=== PATIENT | female | born 1995 | race Caucasian/White ===

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

== ENCOUNTER 2017-01-16 17:03 | Inpatient (IN) | payer BC, MEDICAID ==
[~2017-01-16] VITALS: Ht 154.9 cm; Wt 79.4 kg
[2017-01-16] VITALS (16 sets, daily range): BP systolic 130–169; BP diastolic 76–103
[~2017-01-16 17:03] MED LIST changes: +IRON1TAB95 PO
[2017-01-16 18:22] LABS: BILIRUBIN,URINE NEGATIVE (NEGATIVE); KETONES,URINE 2+ (NEGATIVE); LEUKOCYTE ESTERASE ,URINE 1+ (NEGATIVE); NITRITE,URINE NEGATIVE (NEGATIVE); PH,URINE 6 (5-9); PROTEIN,URINE 1+ (NEGATIVE); UROBILINOGEN,URINE NORMAL (NORMAL)
[2017-01-16 18:24] LABS: BASOPHILS % (AUTO) 0 % (0-10); EOSINOPHILS % (AUTO) 0 % (0-10); LYMPHOCYTES # (AUTO) 2.2 X 10^3 (1.0-4.0); LYMPHOCYTES % (AUTO) 19 % (12-44); MEAN CORPUSCULAR HEMOGLOBIN 30 PG (25-34); MEAN CORPUSCULAR HGB CONC 35 G/DL (32-36); MEAN CORPUSCULAR VOLUME 87 FL (80-99); MONOCYTES % (AUTO) 9 % (0-12); NEUTROPHILS # (AUTO) 8.4 X 10^3 (1.8-7.8); NEUTROPHILS % (AUTO) 72 % (42-75); PLATELET COUNT 235 10^3/uL (130-400); RED BLOOD COUNT 4.22 10^6/uL (4.35-5.85); RED CELL DISTRIBUTION WIDTH 13.5 % (10.0-14.5); WHITE BLOOD COUNT 11.7 10^3/uL (4.3-11.0)
[2017-01-16 18:29] LABS: WBC,URINE 0-2 /HPF
[2017-01-16 18:36] LABS: PROTEIN/CREATININE RATIO 0.2
[2017-01-16 18:39] LABS: ALANINE AMINOTRANSFERASE 18 U/L (0-55); ALBUMIN 3.9 GM/DL (3.2-4.5); ANION GAP 12 MMOL/L (5-14); ASPARTATE AMINO TRANSFERASE 29 U/L (5-34); BILIRUBIN,TOTAL 0.3 MG/DL (0.1-1.0); BLOOD UREA NITROGEN 10 MG/DL (7-18); BUN/CREATININE RATIO 15; CALCIUM 9.8 MG/DL (8.5-10.1); CARBON DIOXIDE 21 MMOL/L (21-32); CHLORIDE 106 MMOL/L (98-107); CREATININE SERUM 0.67 MG/DL (0.60-1.30); GFR ESTIMATED > 60; GLUCOSE 77 MG/DL (70-105); POTASSIUM 3.9 MMOL/L (3.6-5.0); SODIUM 139 MMOL/L (135-145); URIC ACID 7.4 MG/DL (2.6-7.2)
[2017-01-16] MEDS ORDERED: LACTATED RINGERS 1,000 ML IV ONE (19:21)
[2017-01-16] MEDS ORDERED: MINERAL OIL CONCENTRATE 99.9% 15 ML UDC TOP PRN (19:45)
[2017-01-16] MEDS ORDERED: MISOPROSTOL 100 MCG (CYTOTEC) TAB PO ONE (19:45)
[2017-01-16] MEDS: LACTATED RINGERS 1,000 ML IV SCH (19:45)
[2017-01-16] MEDS: CALCIUM CARBONATE 500 MG (TUMS) TAB.CHEW PO PRN ×2 (20:13→22:02)
--- OUTSIDE RECORDS SUMMARY | 2017-01-16 20:22 | XMS REPORT | Continuity of Care Document ---
Author Author [employer] Organization [facility] Address Unknown Phone Unavailable Care Team Providers Care Snag Grinder Name Role Phone [employer] Unavailable Unavailable Problems Medications Allergies, Adverse Reactions, Alerts Immunizations Results Vital Signs Encounters Procedures Plan of Care Social History Assessment and Plan Family History Value Date Source Advance Directives Order Name Results Value Date Source
[2017-01-16] MEDS: D5 LR IV SOLUTION 1,000 ML IV SCH (20:51)
[2017-01-16] MEDS: CATHETER FLUSH 10 ML SYR IV SCH (22:06)
[2017-01-17] VITALS (22 sets, daily range): BP systolic 97–160; BP diastolic 50–97
[2017-01-17] MEDS: MISOPROSTOL 100 MCG (CYTOTEC) TAB PO SCH ×2 (00:49→04:50)
[2017-01-17] MEDS: D5 LR IV SOLUTION 1,000 ML IV SCH (04:50)
[2017-01-17] MEDS ORDERED: HYDROmorphone (DILAUDID) 2 MG/ML VIAL IVP ONE (06:00)
[2017-01-17] MEDS ORDERED: INFLUENZA TRIvalent 2017-2018 0.5 ML/45 MCG SYR IM ONE (07:15)
[2017-01-17] MEDS ORDERED: OXYTOCIN/NORMAL SALINE 500 ML IV SCH ×2 (09:19→13:00)
--- NOTE | 2017-01-17 09:26 | History & Physical-OB/GYN ---
History of Present Illness History of Present Illness Reason for visit/HPI Patient presents with family on 01/16/17 with complaint of elevated BP. She was admitted by Dr. mckinney due to elevated blood pressures last night. He managed her care until this morning. she had not required treatment for elevated blood pressures (160/100) on admision, and has received 3 doses of oral cytotec. complicated by chronic hypertension but no treatment. Blood pressures have been controlled and increasing slightly each week. No proteinuria. Previous history from ob intake (started care with Dr. Mofftet) - +THC (tested negative throughout ), Subclinical hypothyroidism (TSH 2.6), Asymptomatic bactiruia/E Coli. (treated in ), cHTN (never dx but elevated diastolic x 2 at our report, high at home as well) Patient and father of the baby deny chromosomal anomalies including Trisomy 13/ 18 , cystic fibrosis, Shankar-Sachs disease, or other genetic defects. Date of Admission Jan 16, 2017 at 19:15 Date Seen by Provider: Jan 17, 2017 Time Seen by Provider: 09:00 I consulted on this patient on 01/17/17 09:19 Attending Physician Nicola Mckinney DO Admitting Physician Carolyn Song DO Consult Allergies and Home Medications Allergies Coded Allergies: No Known Drug Allergies (Unverified , 04/29/11) Home Medications Aspirin 81 Mg Tab.chew, 81 MG PO DAILY, (Reported) Iron,Carbonyl/Vit C/Vit B12/FA 1 Each Tablet, 1 EACH PO DAILY, (Reported) Levothyroxine Sodium 25 Mcg Tablet, 25 MCG PO DAILY, (Reported) Vit W-Ca,Fe,FA(<1 mg) 1 Each Tablet, 1 TAB PO DAILY, (Reported) Past [id number]-Uagbdt Hx Patient Social History Marrital Status: single Number of Children: 0 Employed/Student: student, full-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 Alcohol Use: Denies Use Recreational Drug Use: No Smoking Status: Never a Smoker Physical Abuse Screen: No Sexual Abuse: No Recent Foreign Travel: No Contact w/other who traveled: No Recent Hopitalizations: No Recent Infectious Disease Expo: No Immunizations Up To Date Tetanus Booster (TDap): Unknown Seasonal Allergies Seasonal Allergies: No Surgeries Yes Bladder Surgery Respiratory No Cardiovascular No Neurological No Reproductive System Expected Date of Delivery: Jan 22, 2017 Last Menstrual Period: Feb 28, 2016 Hx : 1 Hx Reproductive Disorders: No Female Reproductive Disorders: Denies Genitourinary No Gastrointestinal No Musculoskeletal No Endocrine History of Endocrine Disorders: No HEENT History of HEENT Disorders: No Cancer No Psychosocial History of Psychiatric Problem: Yes (MOOD DISORDER--WAS ON [employer]FT--DC'D IT 1 MONTH AGO) Behavioral Health Disorders: Depression Integumentary History of Skin or Integumenta: No Blood Transfusions History of Blood Disorders: No Adverse Reaction to a Blood Tr: No Family Medical History Family Hx: Hypertension 19 FATHER Constitutional: no symptoms reported Physical Exam Physical Exam Vital Signs Vital Signs Date Time Temp Pulse Resp B/P (MAP) Pulse Ox O2 Delivery O2 Flow Rate FiO2 01/17/17 04:52 80 18 136/87 Room Air 01/17/17 03:00 97.4 01/17/17 02:33 78 18 122/75 Room Air 01/17/17 00:42 73 18 113/57 Room Air 01/16/17 23:42 82 18 142/78 Room Air 01/16/17 22:42 78 18 132/80 Room Air 01/16/17 21:42 79 18 133/85 Room Air 01/16/17 20:41 98.5 90 18 139/87 Room Air 01/16/17 19:40 91 18 135/82 Room Air 01/16/17 19:25 98 18 153/102 Room Air 01/16/17 19:09 91 18 134/82 Room Air 01/16/17 18:56 85 20 140/92 01/16/17 18:40 83 20 135/81 01/16/17 18:35 88 20 139/92 01/16/17 18:25 86 20 138/103 01/16/17 18:10 90 20 137/90 01/16/17 17:50 88 20 139/89 01/16/17 17:46 130/81 01/16/17 17:41 88 20 140/76 01/16/17 17:35 77 20 169/95 Capillary Refill : Labs Laboratory Tests 01/16/17 18:05: White Blood Count 11.7H, Red Blood Count 4.22L, Hemoglobin 12.8, Hematocrit 37, Mean Corpuscular Volume 87, Mean Corpuscular Hemoglobin 30, Mean Corpuscular Hemoglobin Concent 35, Red Cell Distribution Width 13.5, Platelet Count 235, Mean Platelet Volume 12.0H, Neutrophils (%) (Auto) 72, Lymphocytes (%) (Auto) 19 , Monocytes (%) (Auto) 9, Eosinophils (%) (Auto) 0, Basophils (%) (Auto) 0, Neutrophils # (Auto) 8.4H, Lymphocytes # (Auto) 2.2, Monocytes # (Auto) 1.0, Eosinophils # (Auto) 0.0, Basophils # (Auto) 0.0, Urine Color YELLOW, Urine Clarity CLEAR, Urine pH 6, Urine Specific [place] 1.015L, Urine Protein 1+H, Urine Glucose (UA) NEGATIVE, Urine Ketones 2+H, Urine Nitrite NEGATIVE, Urine Bilirubin NEGATIVE, Urine Urobilinogen NORMAL, Urine Leukocyte Esterase 1+H, Urine RBC (Auto) NEGATIVE, Urine RBC NONE, Urine WBC 0-2, Urine Squamous Epithelial Cells 10-25H, Urine Crystals NONE, Urine Bacteria FEWH, Urine Casts NONE, Urine Mucus SMALLH, Urine Culture Indicated NO, Urine Creatinine 95, Urine Protein/Creatinine Ratio 0.20, Sodium Level 139, Potassium Level 3.9, Chloride Level 106, Carbon Dioxide Level 21, Anion Gap 12, Blood Urea Nitrogen 10, Creatinine 0.67, Estimat Glomerular Filtration Rate > 60, BUN/Creatinine Ratio 15, Glucose Level 77, Uric Acid 7.4H, Calcium Level 9.8, Total Bilirubin 0.3, Aspartate Amino Transf (AST/SGOT) 29, Alanine Aminotransferase (ALT/SGPT) 18, Alkaline Phosphatase 176H, Total Protein 8.0, Albumin 3.9 General Appearance: No Apparent Distress Respiratory: Lungs Clear, Normal Breath Sounds Cardiovascular: Regular Rate, Rhythm, Other (1+ edema) Abdominal: normal bowel sounds Gynecology/General: Other (see RN note for admission exam. On my exam see below) Cervix: Other Cervix OS: other (2 cm/80% effaced/0 station) Uterus: WNL, Enlarged, Other (FH 39, cephalic) Pelvic Exam: normal external exam Assessment/Plan Assessment and Plan 1. Adolescent , 39 2/7 weeks 2. admitted for elevated blood pressures/gestational hypertension Plan continue misoprostol ripening. AROM when able with Pitocin augmentation. Anticipate . Peds - {ence Problems: Clinical Quality Measures DVT/VTE Risk/Contraindication: Risk Factor Score Per Nursin RFS Level Per Nursing on Admit: 1=Low/No VTE PPX CAROLYN SONG DO Jan 17, 2017 09:26
[2017-01-17] MEDS ORDERED: SUFENTA 0.6MCG/ML BUPIVA 0.125 100 ML ONE (10:07)
[2017-01-17] MEDS ORDERED: BUPIVACAINE 0.25% 30 ML (SENSORCAINE) VIAL ONE (10:27)
[2017-01-17] MEDS ORDERED: fentaNYL INJECTION 100 MCG/2 ML AMP ONE (10:28)
[2017-01-17] MEDS ORDERED: METOCLOPRAMIDE INJ 10 MG/2 ML (REGLAN) ONE (12:01)
[2017-01-17] MEDS ORDERED: LIDOCAINE PF 2% 5 ML (XYLOCAINE) VIAL ONE (12:01)
[2017-01-17] MEDS ORDERED: CITRIC ACID/SOB CIT (BICITRA) 30 ML UDC ONE (12:01)
[2017-01-17] MEDS ORDERED: ceFAZolin 2 GM/50 ML NS 50 ML ONE (12:01)
[2017-01-17] MEDS ORDERED: FAMOTIDINE 20MG/2ML IV (PEPCID) ONE (12:01)
[2017-01-17] MEDS ORDERED: LACTATED RINGERS 1,000 ML IV PRN (12:07)
[2017-01-17] MEDS ORDERED: CITRIC ACID/SOB CIT (BICITRA) 30 ML UDC PO ONE (12:15)
[2017-01-17] MEDS ORDERED: FAMOTIDINE 20MG/2ML IV (PEPCID) IV ONE (12:15)
[2017-01-17] MEDS ORDERED: CATHETER FLUSH 10 ML SYR IV PRN ×2 (12:15→13:45)
[2017-01-17] MEDS ORDERED: ceFAZolin 2 GM/50 ML NS 50 ML IV ONE (12:15)
[2017-01-17] MEDS ORDERED: AZITHROMYCIN INJECTION 500 MG in NS (IVPB) 250 ML IV ONE (12:15)
[2017-01-17] MEDS ORDERED: METOCLOPRAMIDE INJ 10 MG/2 ML (REGLAN) IV ONE (12:15)
[2017-01-17] MEDS: LACTATED RINGERS 1,000 ML IV SCH (12:20)
[2017-01-17] MEDS ORDERED: 0.9% SODIUM CHLORIDE PF INJ 20 ML VIAL ONE (12:27)
[2017-01-17] MEDS ORDERED: BUPIVACAINE 0.5% 30 ML (SENSORCAINE) VIAL ONE (12:27)
[2017-01-17] MEDS ORDERED: HYDROmorphone (DILAUDID) 2 MG/ML VIAL IVP PRN ×2 (13:00→13:15)
[2017-01-17] MEDS ORDERED: TETANUS,DIPTH,PERTUSS P/F (BOOSTRIX) 0.5 ML VIAL IM SCH (13:00)
[2017-01-17] MEDS ORDERED: D5 LR IV SOLUTION 1,000 ML IV SCH (13:00)
[2017-01-17] MEDS ORDERED: MEASLES,MUMPS,RUBELLA 1 EA INJ SC SCH (13:00)
--- NOTE | 2017-01-17 13:06 | Cesarean Section Operative ---
Procedure Procedure Note Pre-operative Diagnosis: Ernestina Gibson is a 21 /Para 1 /0 ,Gestational Age gestational hypertension, vaginal bleeding (third trimester) , non reassuring hearttones Post-operative Diagnosis: same, placental abruption Procedure: Primary low transverse section Physician: CAROLYN SONG Environmental Consultant: Nicola Mckinney DO Estimated blood loss: 600 mL Disposition: stable Findings: Viable female infant, Apgars 1/9, weight 7#2oz, obvious placental abruption. Large amount of clots in the uterus, 3vc, normal appearing uterus, tubes, and ovaries. Body cord delivered through. Indications:Ernestina Gibson is a 21 /Para 1 /0 ,Gestational Age gestational hypertension, vaginal bleeding (third trimester) , non reassuring hearttones Procedure Details: The patient was seen in pre-op and the procedure was discussed with the patient in full, including the risks, benefits, and alternatives. All questions were answered. The patient was taken to the operating room and a time out was performed, verifying patient and procedure. After spinal anesthesia was placed by our anesthesia colleagues, the patient was placed in the dorsal supine with leftward tilt for uterine displacement.~ Her abdomen was then prepped and draped in the typical sterile fashion. A Pfannenstiel skin incision was made using a scalpel and carried down through the underlying fascia. The fascia was incised in the midline and tented up using Gerardo clamps. On both the inferior and superior fascia side the rectus muscle was dissected off bluntly and sharply using Haji scissors. The peritoneum was identified and entered bluntly in the midline. This was then stretched laterally using manual strength. After entering the abdominal cavity and confirming lack of intraperitoneal adhesions, a large Merrick retractor was placed and the lower uterine segment was visualized. A bladder flap was created with the use of Metzenbaum scissors.~ A scalpel was utilized to make a low transverse uterine incision. Amniotomy was performed with an Allis clamp with return of clear fluid. The infant's head was grasped and brought to the level of the incision. Fundal pressure was applied and infant was delivered without difficulty. Mouth and nares were suctioned with bulb suction. After the umbilical cord was clamped and cut, the infant was handed off to the pediatric staff. A sample of cord blood was then obtained. The placenta was delivered intact via uterine massage. The uterus was exteriorized and cleared of all clots and debris. The uterine incision was closed using 0 Vicryl in a running locked fashion. A second imbricated layer was placed using 0 Vicryl in a running fashion as well. The uterus was flexed forward and the posterior rectouterine space was inspected and cleared of all clots and debris. Again the hysterotomy site was examined and hemostasis was observed. The bilateral tubes and ovaries appeared normal. The uterus was placed back into the abdominal cavity and abdominal gutters were cleared of all clots and debris. A final check of the uterine incision showed it to be hemostatic. The peritoneum was closed using 3-0 Vicryl in a running fashion. The fascia was closed with 0 Vicryl in a running fashion. The subcutaneous space was hemostatic, and irrigated. The subcutaneous space was closed with 3-0 Vicryl in several single interrupted stitches. The skin was then closed using 4- 0 Monocryl in a running subcuticular fashion. The skin edges were reapproximated together and were hemostatic. A pressure dressing was applied. All sponge, lap and needle counts were correct at the end of the procedure per nursing. Vitals - Labs Vital Signs - I&O Vital Signs Date Time Temp Pulse Resp B/P (MAP) Pulse Ox O2 Delivery O2 Flow Rate FiO2 01/17/17 11:35 93 16 127/66 100 Room Air 01/17/17 11:30 97.1 82 16 128/63 100 Room Air 01/17/17 11:25 85 16 127/66 100 Room Air 01/17/17 11:20 89 16 143/72 100 Room Air 01/17/17 11:15 92 16 102/63 100 Room Air 01/17/17 11:10 93 18 97/56 99 Room Air 01/17/17 11:05 75 20 97/54 98 Room Air 01/17/17 11:00 83 18 103/50 98 Room Air 01/17/17 10:55 93 18 128/70 98 Room Air 01/17/17 10:40 88 20 139/85 Room Air 01/17/17 10:25 89 20 140/89 Room Air 01/17/17 10:10 82 20 158/97 Room Air 01/17/17 09:55 97.1 80 20 160/97 Room Air 01/17/17 04:52 80 18 136/87 Room Air 01/17/17 03:00 97.4 01/17/17 02:33 78 18 122/75 Room Air 01/17/17 00:42 73 18 113/57 Room Air 01/16/17 23:42 82 18 142/78 Room Air 01/16/17 22:42 78 18 132/80 Room Air 01/16/17 21:42 79 18 133/85 Room Air 01/16/17 20:41 98.5 90 18 139/87 Room Air 01/16/17 19:40 91 18 135/82 Room Air 01/16/17 19:25 98 18 153/102 Room Air 01/16/17 19:09 91 18 134/82 Room Air 01/16/17 18:56 85 20 140/92 01/16/17 18:40 83 20 135/81 01/16/17 18:35 88 20 139/92 01/16/17 18:25 86 20 138/103 01/16/17 18:10 90 20 137/90 01/16/17 17:50 88 20 139/89 01/16/17 17:46 130/81 01/16/17 17:41 88 20 140/76 01/16/17 17:35 77 20 169/95 I & O 01/18/17 07:00 Intake Total 50 ml Output Total 100 ml Balance -50 ml Labs Laboratory Tests 01/16/17 18:05: White Blood Count 11.7H, Red Blood Count 4.22L, Hemoglobin 12.8, Hematocrit 37, Mean Corpuscular Volume 87, Mean Corpuscular Hemoglobin 30, Mean Corpuscular Hemoglobin Concent 35, Red Cell Distribution Width 13.5, Platelet Count 235, Mean Platelet Volume 12.0H, Neutrophils (%) (Auto) 72, Lymphocytes (%) (Auto) 19 , Monocytes (%) (Auto) 9, Eosinophils (%) (Auto) 0, Basophils (%) (Auto) 0, Neutrophils # (Auto) 8.4H, Lymphocytes # (Auto) 2.2, Monocytes # (Auto) 1.0, Eosinophils # (Auto) 0.0, Basophils # (Auto) 0.0, Urine Color YELLOW, Urine Clarity CLEAR, Urine pH 6, Urine Specific [place] 1.015L, Urine Protein 1+H, Urine Glucose (UA) NEGATIVE, Urine Ketones 2+H, Urine Nitrite NEGATIVE, Urine Bilirubin NEGATIVE, Urine Urobilinogen NORMAL, Urine Leukocyte Esterase 1+H, Urine RBC (Auto) NEGATIVE, Urine RBC NONE, Urine WBC 0-2, Urine Squamous Epithelial Cells 10-25H, Urine Crystals NONE, Urine Bacteria FEWH, Urine Casts NONE, Urine Mucus SMALLH, Urine Culture Indicated NO, Urine Creatinine 95, Urine Protein/Creatinine Ratio 0.20, Sodium Level 139, Potassium Level 3.9, Chloride Level 106, Carbon Dioxide Level 21, Anion Gap 12, Blood Urea Nitrogen 10, Creatinine 0.67, Estimat Glomerular Filtration Rate > 60, BUN/Creatinine Ratio 15, Glucose Level 77, Uric Acid 7.4H, Calcium Level 9.8, Total Bilirubin 0.3, Aspartate Amino Transf (AST/SGOT) 29, Alanine Aminotransferase (ALT/SGPT) 18, Alkaline Phosphatase 176H, Total Protein 8.0, Albumin 3.9 CAROLYN SONG DO Jan 17, 2017 13:06
[2017-01-17] MEDS ORDERED: LACTATED RINGERS 1,000 ML IV ONE (13:33)
[2017-01-17] MEDS ORDERED: diphenhydrAMINE 50 MG/ML INJ (BENADRYL) IV PRN (13:45)
[2017-01-17] MEDS ORDERED: ONDANSETRON 4 MG/2 ML (SDV) Z0FRAN IV PRN (13:45)
[2017-01-17] MEDS ORDERED: NALOXONE 0.4 MG/ML 1 ML (NARCAN) VIAL IV PRN (13:45)
[2017-01-17] MEDS ORDERED: EPIDURAL (SUFENTA 0.6MCG/ML BUPIVA 0.125%) 100 ML BAG EPI SCH (13:45)
[2017-01-17] MEDS: KETOROLAC 30 MG/ML VIAL IVP SCH ×2 (14:04→21:22)
[2017-01-17] MEDS: HYDROcodone/APAP 5 MG/325 MG (LORTAB) TAB PO PRN (15:03)
[2017-01-17] MEDS: DOCUSATE SODIUM 100 MG (COLACE) CAP PO SCH (21:22)
[2017-01-17] MEDS: CATHETER FLUSH 10 ML SYR IV SCH (22:00)
[2017-01-18] VITALS: BP 126/87
[2017-01-18] MEDS: HYDROcodone/APAP 5 MG/325 MG (LORTAB) TAB PO PRN ×2 (00:39→17:01)
[2017-01-18] MEDS: KETOROLAC 30 MG/ML VIAL IVP SCH ×2 (01:17→06:00)
[2017-01-18] MEDS: CATHETER FLUSH 10 ML SYR IV SCH ×4 (01:19→11:47)
[2017-01-18 04:00] VITALS: BP 118/77
[2017-01-18 06:26] LABS: BASOPHILS % (AUTO) 0 % (0-10); EOSINOPHILS % (AUTO) 0 % (0-10); LYMPHOCYTES # (AUTO) 3.1 X 10^3 (1.0-4.0); LYMPHOCYTES % (AUTO) 28 % (12-44); MEAN CORPUSCULAR HEMOGLOBIN 30 PG (25-34); MEAN CORPUSCULAR HGB CONC 34 G/DL (32-36); MEAN CORPUSCULAR VOLUME 90 FL (80-99); MEAN PLATELET VOLUME 11.9 FL (7.4-10.4); MONOCYTES # (AUTO) 1.3 X 10^3 (0.0-1.0); MONOCYTES % (AUTO) 11 % (0-12); NEUTROPHILS # (AUTO) 6.7 X 10^3 (1.8-7.8); NEUTROPHILS % (AUTO) 60 % (42-75); PLATELET COUNT 196 10^3/uL (130-400); RED BLOOD COUNT 2.71 10^6/uL (4.35-5.85); RED CELL DISTRIBUTION WIDTH 13.4 % (10.0-14.5); WHITE BLOOD COUNT 11.1 10^3/uL (4.3-11.0)
--- NOTE | 2017-01-18 07:50 | Postpartum Progress Note ---
Post Op Post-operative Day #1 s/p PLTCS Abruption Subjective: Patient is without complaints. Ambulating, voiding after montejo removed. Tolerating a regular diet without nausea or vomiting. Normal lochia. Pain is well controlled with oral pain medications. Passing flatus. [] feeding. [] Objective: Laboratory Tests Test 01/18/17 05:51 Range/Units White Blood Count 11.1 H 4.3-11.0 10^3/uL Red Blood Count 2.71 L 4.35-5.85 10^6/uL Hemoglobin 8.2 #L 11.5-16.0 G/DL Hematocrit 24 L 35-52 % Mean Corpuscular Volume 90 80-99 FL Mean Corpuscular Hemoglobin 30 25-34 PG Mean Corpuscular Hemoglobin Concent 34 32-36 G/DL Red Cell Distribution Width 13.4 10.0-14.5 % Platelet Count 196 130-400 10^3/uL Mean Platelet Volume 11.9 H 7.4-10.4 FL Neutrophils (%) (Auto) 60 42-75 % Lymphocytes (%) (Auto) 28 12-44 % Monocytes (%) (Auto) 11 0-12 % Eosinophils (%) (Auto) 0 0-10 % Basophils (%) (Auto) 0 0-10 % Neutrophils # (Auto) 6.7 1.8-7.8 X 10^3 Lymphocytes # (Auto) 3.1 1.0-4.0 X 10^3 Monocytes # (Auto) 1.3 H 0.0-1.0 X 10^3 Eosinophils # (Auto) 0.0 0.0-0.3 10^3/uL Basophils # (Auto) 0.0 0.0-0.1 10^3/uL Vital Signs 01/18/17 04:00 Temp 98.9 Pulse 82 Resp 18 B/P (MAP) 118/77 Pulse Ox 98 O2 Delivery Room Air Intake and Output 01/19/17 00:00 Intake Total 600 ml Output Total 1400 ml Balance -800 ml Intake Oral 600 ml Output Urine Total 1400 ml Physical Exam: General - Alert and oriented, no apparent distress Abdomen - Soft, appropriately tender to palpation, non-distended, fundus firm at umbilicus Incision - clean, dry and intact; no erythema or induration, no drainage Extremities - no edema, negative Elisha's bilaterally [] Assessment: [] post-operative day # [], status post []. Recovering well, hemodynamically stable Acute blood loss anemia [] Plan: Routine post-operative care. Encourage breast feeding. Encourage ambulation. VTE prophylaxis: SCDs. Ferrous sulfate supplementation. Plan for discharge [] Vitals - Labs Vital Signs - I&O Vital Signs Date Time Temp Pulse Resp B/P (MAP) Pulse Ox O2 Delivery O2 Flow Rate FiO2 01/18/17 04:00 98.9 82 18 118/77 98 Room Air 01/18/17 00:00 99.2 90 16 126/87 98 Room Air 01/17/17 20:00 98.4 107 18 138/89 96 Room Air 01/17/17 16:00 98.3 83 18 129/79 96 Room Air 01/17/17 14:05 97.8 85 18 127/85 96 Room Air 01/17/17 12:05 77 16 121/69 100 Room Air 01/17/17 11:45 86 16 131/71 91 Room Air 01/17/17 11:40 84 16 116/80 91 Room Air 01/17/17 11:35 93 16 127/66 100 Room Air 01/17/17 11:30 97.1 82 16 128/63 100 Room Air 01/17/17 11:25 85 16 127/66 100 Room Air 01/17/17 11:20 89 16 143/72 100 Room Air 01/17/17 11:15 92 16 102/63 100 Room Air 01/17/17 11:10 93 18 97/56 99 Room Air 01/17/17 11:05 75 20 97/54 98 Room Air 01/17/17 11:00 83 18 103/50 98 Room Air 01/17/17 10:55 93 18 128/70 98 Room Air 01/17/17 10:40 88 20 139/85 Room Air 01/17/17 10:25 89 20 140/89 Room Air 01/17/17 10:10 82 20 158/97 Room Air 01/17/17 09:55 97.1 80 20 160/97 Room Air Labs Laboratory Tests 01/18/17 05:51: White Blood Count 11.1H, Red Blood Count 2.71L, Hemoglobin 8.2#L, Hematocrit 24L , Mean Corpuscular Volume 90, Mean Corpuscular Hemoglobin 30, Mean Corpuscular Hemoglobin Concent 34, Red Cell Distribution Width 13.4, Platelet Count 196, Mean Platelet Volume 11.9H, Neutrophils (%) (Auto) 60, Lymphocytes (%) (Auto) 28 , Monocytes (%) (Auto) 11, Eosinophils (%) (Auto) 0, Basophils (%) (Auto) 0, Neutrophils # (Auto) 6.7, Lymphocytes # (Auto) 3.1, Monocytes # (Auto) 1.3H, Eosinophils # (Auto) 0.0, Basophils # (Auto) 0.0 CAROLYN SONG DO Jan 18, 2017 07:50
[2017-01-18 07:58] VITALS: BP 123/80
[2017-01-18] MEDS: DOCUSATE SODIUM 100 MG (COLACE) CAP PO SCH ×2 (08:00→21:58)
[2017-01-18] MEDS: IRON POLYSAC 150 MG CAP (NIFEREX) PO SCH ×2 (09:43→19:07)
[2017-01-18] MEDS: IBUPROFEN 600 MG (MOTRIN) TAB PO SCH ×2 (11:47→19:06)
--- NOTE | 2017-01-18 15:13 | Anesthesia-Regional Post-Op ---
Regional Patient Condition Mental Status: Alert, Oriented x3 Circulation: Same as Pre-Op Headache: Absent Sensation: Full Recovery Motor Block: Absent Post Op Complications Complications None Follow Up Care/Instructions Patient Instructions None needed. Anesthesia/Patient Condition Patient is doing well, no complaints, stable vital signs, no apparent adverse anesthesia problems. EVERETT PRATER DO Jan 18, 2017 15:13
[2017-01-18 16:11] VITALS: BP 135/93
[2017-01-18] MEDS ORDERED: OXYTOCIN/NORMAL SALINE 500 ML IV SCH (18:35)
[2017-01-18] MEDS ORDERED: BENZOCAINE/MENTHOL (DERMOPLAST) 56 ML CAN TP PRN (18:45)
[2017-01-18] MEDS ORDERED: ACETAMINOPHEN 500 MG TAB (TYLENOL) PO PRN (18:45)
[2017-01-18] MEDS ORDERED: MEASLES,MUMPS,RUBELLA 1 EA INJ SQ ONE (18:45)
[2017-01-18] MEDS ORDERED: TETANUS,DIPTH,PERTUSS P/F (BOOSTRIX) 0.5 ML VIAL IM ONE (18:45)
[2017-01-18] MEDS ORDERED: DIBUCAINE (NUPERCAINAL) 1% OINT 30 GM TOP PRN (18:45)
[2017-01-18] MEDS ORDERED: IBUPROFEN 600 MG (MOTRIN) TAB PO SCH (18:45)
[2017-01-18] MEDS ORDERED: WITCH HAZEL(TUCKS) 40 EA JAR TOP PRN (18:45)
[2017-01-18 19:55] VITALS: BP 132/89
[2017-01-18] MEDS ORDERED: metFORMIN 500 MG (GLUCOPHAGE) TAB PO SCH (20:00)
[2017-01-18] MEDS ORDERED: DOCUSATE SODIUM 100 MG (COLACE) CAP PO SCH (21:00)
[2017-01-18] MEDS ORDERED: CATHETER FLUSH 10 ML SYR IV SCH (22:00)
[2017-01-19] MEDS: IBUPROFEN 600 MG (MOTRIN) TAB PO SCH ×4 (01:40→21:06)
[2017-01-19] MEDS: HYDROcodone/APAP 5 MG/325 MG (LORTAB) TAB PO PRN ×2 (01:41→12:06)
[2017-01-19 02:00] VITALS: BP 126/81
[2017-01-19] MEDS ORDERED: PRENATAL VITAMIN 1 EA TAB PO SCH (07:00)
[2017-01-19] MEDS: IRON POLYSAC 150 MG CAP (NIFEREX) PO SCH ×2 (08:02→18:03)
[2017-01-19] MEDS: DOCUSATE SODIUM 100 MG (COLACE) CAP PO SCH ×2 (08:02→21:06)
[2017-01-19 08:05] VITALS: BP 126/90
--- NOTE | 2017-01-19 08:38 | Postpartum Progress Note ---
Post Op Post-operative Day #2 s/p PLTCS Subjective: Patient is without complaints. Ambulating, voiding after montejo removed. Tolerating a regular diet without nausea or vomiting. Normal lochia. Pain is well controlled with oral pain medications. Passing flatus. [] feeding. [] Objective: Vital Signs 01/19/17 08:05 Temp 97.3 Pulse 69 Resp 16 B/P (MAP) 126/90 Pulse Ox 96 O2 Delivery Room Air Physical Exam: General - Alert and oriented, no apparent distress Abdomen - Soft, appropriately tender to palpation, non-distended, fundus firm at umbilicus Incision - clean, dry and intact; no erythema or induration, no drainage Extremities - no edema, negative Elisha's bilaterally [] Assessment: [] post-operative day # [], status post []. Recovering well, hemodynamically stable Acute blood loss anemia [] Plan: Routine post-operative care. Encourage breast feeding. Encourage ambulation. VTE prophylaxis: SCDs. Ferrous sulfate supplementation. Plan for discharge [] Vitals - Labs Vital Signs - I&O Vital Signs Date Time Temp Pulse Resp B/P (MAP) Pulse Ox O2 Delivery O2 Flow Rate FiO2 01/19/17 08:05 97.3 69 16 126/90 96 Room Air 01/19/17 02:00 98.2 81 17 126/81 99 Room Air 01/18/17 19:55 98.4 91 18 132/89 98 Room Air 01/18/17 16:11 99.2 93 18 135/93 96 Room Air 01/18/17 08:43 Room Air CAROLYN SONG DO Jan 19, 2017 8:38 am
[2017-01-19] MEDS ORDERED: FERROUS SULF 325 MG (IRON) TAB PO SCH (09:00)
[2017-01-19 14:02] VITALS: BP 146/97
[2017-01-19 20:00] VITALS: BP 108/68
[2017-01-20 00:58] VITALS: BP 109/66
[2017-01-20] MEDS: IBUPROFEN 600 MG (MOTRIN) TAB PO SCH ×3 (03:48→14:34)
[2017-01-20] MEDS: IRON POLYSAC 150 MG CAP (NIFEREX) PO SCH (08:53)
[2017-01-20] MEDS: DOCUSATE SODIUM 100 MG (COLACE) CAP PO SCH (08:53)
[2017-01-20 08:55] VITALS: BP 137/77
--- NOTE | 2017-01-20 12:44 | Progress Note-Standard ---
Standard Progress Note Progress Notes/Assess & Plan Date Seen by Provider: Jan 20, 2017 Time Seen by Provider: 12:45 Progress/Assessment & Plan Vital Sign - Last 12Hours 01/20/17 01/20/17 00:58 08:55 Temp 98.1 Pulse 67 83 Resp 18 16 B/P (MAP) 109/66 137/77 Pulse Ox 97 99 O2 Delivery Room Air CAROLYN SONG DO Jan 20, 2017 12:44
[2017-01-20] MEDS ORDERED: IBUP-1773 PO (12:45)
[2017-01-20] MEDS ORDERED: Hydrocodone Bit/Acetaminophen PO (12:45)
--- NOTE | 2017-01-20 12:47 | Discharge Inst-Women's Service ---
Discharge Inst-Women's Serv Depart Medication/Instructions New, Converted or Re-Newed RX: RX on Chart Final Diagnosis chronic hypertension gestational hypertension placental abruption acute blood loss anemia Consults/Follow Up Additional Follow Up: Yes ( 1 weeks for incision/bp check with IVA, 6 weeks with jose francisco) Activity Activity: Activity as Tolerated Driving Instructions: No Driving for 1 Week NO SMOKING: NO SMOKING Nothing Inside Vagina: No Douching, No [place], No Tampons Diet Discharge Diet: No Restrictions Symptoms to Report to : Swelling Increased, Bleeding Excessive, Pain Increased, Fever Over 101 Degrees F, Vaginal Bleeding Increase, Cramps in Feet or Legs, Vaginal Discharge Foul For Any Problems or Questions: Contact Your Physician Skin/Wound Care Infection Signs and Symptoms: Increased Redness, Foul Odor of Wound, Increased Drainage, Skin Itchy or Has a Rash, Increased Swelling, Temperature Above 101 F Operative Area Clean and Dry: Keep Incision Clean/Dry Stitches/[place]/Dermabond: Dermabond Bathing Instructions: CAROLYN Tovar DO Jan 20, 2017 12:47
[2017-01-20] MEDS ORDERED: MILK OF MAGNESIA 400 MG/5 ML 30 ML UDC PO ONE (13:00)
[2017-01-20] MEDS ORDERED: BISACODYL 5 MG (DULCOLAX) TABLET PO SCH (13:00)
[2017-01-20] MEDS ORDERED: INFLUENZA TRIvalent 2017-2018 0.5 ML/45 MCG SYR IM ONE (14:09)
[2017-01-20] MEDS ORDERED: TETANUS,DIPTH,PERTUSS P/F (BOOSTRIX) 0.5 ML VIAL IM ONE (14:10)
== END 2017-01-20 15:30 | disposition home or self-care (01) | DRG 765 ==
LOC: WSo 17:03 → LDRP 17:03 → WSo 19:15 → LDRP 19:15
PROVIDERS: ADMIT Obstetrics & Gynecology; ATTEND Obstetrics & Gynecology
PROC: 10D00Z1 Extraction of Products of Conception, Low, Open Approach (ICD-10-PCS; principal; 2017-01-17 12:23)
DX: O13.4 Gestational [pregnancy-induced] hypertension without significant proteinuria, complicating childbirth (principal); O45.93 Premature separation of placenta, unspecified, third trimester; O99.284 Endocrine, nutritional and metabolic diseases complicating childbirth; E02 Subclinical iodine-deficiency hypothyroidism; O99.344 Other mental disorders complicating childbirth; F32.9 Major depressive disorder, single episode, unspecified; O90.81 Anemia of the puerperium; D62 Acute posthemorrhagic anemia; Z3A.39 39 weeks gestation of pregnancy; Z37.0 Single live birth; Z23 Encounter for immunization
CPT/HCPCS: 36415; 80053; 81000; 82570; 84156; 84550; 85025; 86850; 86900; 86901; 90715; 94664; 99212

== ENCOUNTER → 2018-09-14 | Outpatient (CLI) | payer BC, MEDICAID ==
[~2018-09-14] MED LIST changes: +GADOBUTROL 7.5 MMOL/7.5 ML (GADAVIST) VIAL IV ONE; +Hydrocodone Bit/Acetaminophen PO; +IBUP-1773 PO
--- NOTE | 2018-09-14 16:15 | Diagnostic Imaging Report ---
PROCEDURE: MR imaging of the brain without contrast. TECHNIQUE: Multiplanar, multisequence MR imaging of the brain was performed without contrast. INDICATION: Headache. FINDINGS: The ventricles and sulci are within normal limits. There is no hydrocephalus. There is no midline shift. There is no intracranial mass, hemorrhage, or extra-axial fluid collection. There are no areas of diffusion restriction appreciated to suggest an acute CVA. The frontal, ethmoid, sphenoid, and maxillary sinuses are clear. The mastoid air cells are clear. The globes and intraorbital structures are unremarkable. The central arterial and dural venous sinus flow voids are preserved. IMPRESSION: Unremarkable MRI brain. Dictated by: Dictated on workstation # [id number]
== END ==
LOC: RAD 13:57
PROVIDERS: ATTEND Nurse Practitioner Family
DX: G43.909 Migraine, unspecified, not intractable, without status migrainosus (principal)
CPT/HCPCS: 70551

== ENCOUNTER 2018-09-18 02:22 | Emergency (ER) | payer BC ==
[~2018-09-18 02:22] MED LIST changes: -GADOBUTROL 7.5 MMOL/7.5 ML (GADAVIST) VIAL IV ONE
--- OUTSIDE RECORDS SUMMARY | 2018-09-18 02:28 | XMS REPORT | CCD ---
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 Name Role Phone PP Unavailable CCM Unavailable Summary Purpose Interface Exchange Insurance Providers Payer name Policy type / Coverage type Covered alliance party ID Effective Begin Date Effective End Date Blue Cross Blue [facility] Blue Cross/Blue Shield [id number] Unknown Family history Grandmother Diagnosis Age At Onset Colon cancer Unknown Social History Social History Element Codes Description Effective Dates Marital status Unknown Single 04/24/2015 Employment Unknown Student 04/24/[address]: 063841758 Never smoker 04/24/[address]: 267609945 Never drinks alcohol 04/24/2015 Allergies, Adverse Reactions, Alerts Substance Reaction Codes Entered Date Inactivated Date Status * NO KNOWN DRUG ALLERGIES Unknown 04/24/2015 No Inactive Date Active Past Medical History Illness Codes Condition Status Onset Date Resolved Date Headache ICD-9: 784.0 ICD-10: R51 Active 09/08/2018 Unknown Other fatigue ICD-9: 780.79 ICD-10: R53.83 Active 10/13/2015 Unknown Other malaise ICD-9: 780.79 ICD-10: R53.81 Active 03/03/2016 Unknown Generalized anxiety disorder ICD-9: 300.00 ICD-10: F41.1 Active 08/02/2018 Unknown Major depressive disorder, single episode, moderate ICD-9: 296.22 ICD-10: F32.1 Active 08/02/2018 Unknown Gastro-esophageal reflux disease without esophagitis ICD-9: 530.81 ICD-10: K21.9 Active 05/26/2016 Unknown Other specified intestinal infections ICD-9: 009.0 ICD-10: A08.8 Active 05/26/2016 Unknown Cough ICD-9: 786.2 ICD-10: R05 Active 03/03/2016 Unknown Influenza due to identified novel influenza A virus with other respiratory manifestations ICD-9: 488.02 ICD-10: J09.X2 Active 03/03/2016 Unknown Abnormal weight gain ICD- 9: 783.1 ICD-10: R63.5 Active 02/09/2016 Unknown Dysuria ICD-9: 788.1 ICD-10: R30.0 Active 02/09/2016 Unknown Irregular menstruation, unspecified ICD-9: 626.4 ICD-10: N92.6 Active 02/09/2016 Unknown Acute recurrent maxillary sinusitis ICD-9: 461.0 ICD-10: J01.01 Active 01/18/2016 Unknown Generalized anxiety disorder ICD-9: 308.0 ICD-10: F41.1 Active 11/16/2015 Unknown Major depressive disorder, single episode, mild ICD-9: 296.21 ICD-10: F32.0 Active 11/16/2015 Unknown Other specified anemias ICD-9: 285.8 ICD-10: D64.89 Active 10/13/2015 Unknown Urinary tract infection, site not specified ICD-9: 599.0 ICD-10: N39.0 Active 09/22/2015 Unknown Slow transit constipation ICD-9: 564.01 ICD-10: K59.01 Active 06/12/2015 Unknown Dizziness and giddiness ICD-9: 780.4 ICD-10: R42 Active 04/23/2015 Unknown Encounter for routine child health examination with abnormal findings ICD-9: V20.2 ICD-10: Z00.121 Active 04/23/2015 Unknown Iron deficiency anemia, unspecified ICD-9: 280.9 ICD-10: D50.9 Active 04/23/2015 Unknown Migraine, unspecified, not intractable, without status migrainosus ICD-9: 346.90 ICD-10: G43.909 Active 04/23/2015 Unknown Problems Condition Codes Effective Dates Condition Status Headache ICD-9: 784.0 ICD-10: R51 09/08/2018 Active Other fatigue ICD-9: 780.79 ICD-10: R53.83 10/13/2015 Active Other malaise ICD-9: 780.79 ICD-10: R53.81 03/03/2016 Active Generalized anxiety disorder ICD-9: 300.00 ICD-10: F41.1 08/02/2018 Active Major depressive disorder, single episode, moderate ICD-9: 296.22 ICD-10: F32.1 08/02/2018 Active Gastro-esophageal reflux disease without esophagitis ICD-9: 530.81 ICD-10: K21.9 05/26/2016 Active Other specified intestinal infections ICD-9: 009.0 ICD-10: A08.8 05/26/2016 Active Cough ICD-9: 786.2 ICD-10: R05 03/03/2016 Active Influenza due to identified novel influenza A virus with other respiratory manifestations ICD-9: 488.02 ICD-10: J09.X2 03/03/2016 Active Abnormal weight gain ICD- 9: 783.1 ICD-10: R63.5 02/09/2016 Active Dysuria ICD-9: 788.1 ICD-10: R30.0 02/09/2016 Active Irregular menstruation, unspecified ICD-9: 626.4 ICD-10: N92.6 02/09/2016 Active Acute recurrent maxillary sinusitis ICD-9: 461.0 ICD-10: J01.01 01/18/2016 Active Generalized anxiety disorder ICD-9: 308.0 ICD-10: F41.1 11/16/2015 Active Major depressive disorder, single episode, mild ICD-9: 296.21 ICD-10: F32.0 11/16/2015 Active Other specified anemias ICD-9: 285.8 ICD-10: D64.89 10/13/2015 Active Urinary tract infection, site not specified ICD-9: 599.0 ICD-10: N39.0 09/22/2015 Active Slow transit constipation ICD-9: 564.01 ICD-10: K59.01 06/12/2015 Active Dizziness and giddiness ICD-9: 780.4 ICD-10: R42 04/23/2015 Active Encounter for routine child health examination with abnormal findings ICD-9: V20.2 ICD-10: Z00.121 04/23/2015 Active Iron deficiency anemia, unspecified ICD-9: 280.9 ICD-10: D50.9 04/23/2015 Active Migraine, unspecified, not intractable, without status migrainosus ICD-9: 346.90 ICD-10: G43.909 04/23/2015 Active Medications Medication Codes Instructions Start Date Stop Date Status Fill Instructions [employer] 5 mg disintegrating tablet RxNorm: 120444 1 Tablet(s) PO at onset of migraine and may repeat in 1 hour if migraine is not treated 09/08/2018 No Stop Date Active nystatin 100,000 unit/mL oral suspension RxNorm: 229113 4 Milliliter(s) PO BID 09/08/2018 09/21/2018 Active nystatin 100,000 unit/mL oral suspension RxNorm: 424629 4 Milliliter(s) PO BID 09/08/2018 09/07/2018 Inactive buspirone 10 mg tablet RxNorm: 907297 1 Tablet(s) PO BID 08/15/2018 09/13/2018 Inactive buspirone 5 mg tablet RxNorm: 938941 1 Tablet(s) PO BID 08/02/2018 08/31/2018 Inactive Zofran 4 mg tablet RxNorm: 523955 1 Tablet(s) PO TID as needed nausea and vomitting 05/27/2016 05/31/2016 Inactive Zofran 4 mg tablet RxNorm: 151132 1 Tablet(s) PO TID as needed nausea and vomitting 05/26/2016 05/30/2016 Inactive Tamiflu 75 mg capsule RxNorm: 087390 1 Capsule(s) PO BID 03/04/2016 03/08/2016 Inactive Keflex 500 mg capsule RxNorm: 958036 1 Capsule(s) PO TID 02/10/2016 02/09/2016 Inactive Keflex 500 mg capsule RxNorm: 726351 1 Capsule(s) PO TID 02/10/2016 02/16/2016 Inactive Augmentin 875 mg-125 mg tablet RxNorm: 036793 1 Tablet(s) PO BID 01/19/2016 01/23/2016 Inactive TAKE PROBIOTIC WHILE ON ABX bupropion HCl 75 mg tablet RxNorm: 704374 1 Tablet(s) PO BID 11/17/2015 01/18/2016 Inactive bupropion HCl 75 mg tablet RxNorm: 075940 1 Tablet(s) PO BID 10/17/2015 10/16/2015 Inactive bupropion HCl 75 mg tablet RxNorm: 041986 1 Tablet(s) PO BID 10/17/2015 11/15/2015 Inactive Bactrim DS 800 mg-160 mg tablet RxNorm: 507242 1 Tablet(s) PO BID 05/21/2015 05/27/2015 Inactive Maxalt[employer] 5 mg disintegrating tablet RxNorm: 021466 1 Tablet(s) PO at onset of migraine and may repeat in 1 hour if migraine is not treated 04/24/2015 09/07/2018 Inactive Microgestin 1.5/30 (21) 1.5 mg-30 mcg tablet RxNorm: 325646 1 Tablet(s) PO daily No Start Date Active Zofran 4 mg tablet RxNorm: 020445 1 Tablet(s) PO TID as needed nausea and vomitting No Start Date 05/26/2016 Inactive Medication Administered No Medication Administered data Immunizations No Immunization data Assessments Condition Codes Effective Dates Headache ICD-10: R51 ICD-9: 784.0 09/08/2018 Other malaise ICD-10: R53.81 ICD-9: 780.79 09/08/2018 Other fatigue ICD-10: R53.83 ICD-9: 780.79 09/08/2018 Major depressive disorder, single episode, moderate ICD-10: F32.1 ICD-9: 296.22 08/15/2018 Generalized anxiety disorder ICD-10: F41.1 ICD-9: 300.00 08/15/2018 Gastro-esophageal reflux disease without esophagitis ICD-10: K21.9 ICD-9: 530.81 05/26/2016 Other specified intestinal infections ICD-10: A08.8 ICD-9: 009.0 05/26/2016 Cough ICD-10: R05 ICD-9: 786.2 03/04/2016 Influenza due to identified novel influenza A virus with other respiratory manifestations ICD-10: J09.X2 ICD-9: 488.02 03/04/2016 Dysuria ICD-10: R30.0 ICD-9: 788.1 02/10/2016 Abnormal weight gain ICD-10: R63.5 ICD-9: 783.1 02/10/2016 Irregular menstruation, unspecified ICD-10: N92.6 ICD-9: 626.4 02/10/2016 Acute recurrent maxillary sinusitis ICD-10: J01.01 ICD-9: 461.0 01/19/2016 Generalized anxiety disorder ICD-10: F41.1 ICD-9: 308.0 11/17/2015 Major depressive disorder, single episode, mild ICD-10: F32.0 ICD-9: 296.21 11/17/2015 Other specified anemias ICD-10: D64.89 ICD-9: 285.8 10/14/2015 Urinary tract infection, site not specified ICD-10: N39.0 ICD-9: 599.0 09/23/2015 Slow transit constipation ICD-10: K59.01 ICD-9: 564.01 06/13/2015 Iron deficiency anemia, unspecified ICD-10: D50.9 ICD-9: 280.9 04/24/2015 Migraine, unspecified, not intractable, without status migrainosus ICD-10: G43.909 ICD-9: 346.90 04/24/2015 Dizziness and giddiness ICD-10: R42 ICD-9: 780.4 04/24/2015 Encounter for routine child health examination with abnormal findings ICD-10: Z00.121 ICD-9: V20.2 04/24/2015 Reason For Visit Reason For Visit Effective Dates Notes Hospital Follow Up 09/08/2018 medication follow up 08/15/2018 anxiety 08/02/2018 diarrhea 05/26/2016 cough 03/04/2016 nausea 02/10/2016 cough 01/19/2016 medication follow up 11/17/2015 weight gain/obesity 10/14/2015 dysuria 09/23/2015 constipation 06/13/2015 urinary urgency 05/21/2015 headache 04/24/2015 Results Observation Observation Code Item Item Code Result Date C A/B FLU 8118522 Influenza A Scr Negative 05/26/2016 C A/B FLU 6730108 Influenza B Scr Negative 05/26/2016 C A/B FLU 2420708 Influenza A Scr Positive 03/04/2016 C A/B FLU 6980109 Influenza B Scr Negative 03/04/2016 Culture Urine [id number] URINE CULTURE SEE NOTES 02/13/2016 Culture Urine [id number] Continued Results 02/13/2016 Urine Culture Ucult Complete >100,000 col/ml aerobic growth sent to ref lab 02/11/2016 Urine Bhcg Hwr500 Urine BHCG Negative 02/10/2016 Cbc With Differential Ord2 WBC 6.73 K/ul 10/15/2015 Cbc With Differential Ord2 RBC 4.22 M/ul 10/15/2015 Cbc With Differential Ord2 HGB 12.2 g/dl 10/15/2015 Cbc With Differential Ord2 HCT 36.5 % 10/15/2015 Cbc With Differential Ord2 Neut% 51.2 % 10/15/2015 Cbc With Differential Ord2 MCV 86.5 fl 10/15/2015 Cbc With Differential Ord2 Lymph% 34.9 % 10/15/2015 Cbc With Differential Ord2 MCH 28.9 pg 10/15/2015 Cbc With Differential Ord2 Wharton% 11.3 % 10/15/2015 Cbc With Differential Ord2 MCHC 33.4 pg 10/15/2015 Cbc With Differential Ord2 Eos% 1.6 % 10/15/2015 Cbc With Differential Ord2 PLT 341 K/ul 10/15/2015 Cbc With Differential Ord2 Baso% 1.0 % 10/15/2015 Cbc With Differential Ord2 RDW 14.5 % 10/15/2015 Cbc With Differential Ord2 Neut ABS# 3.44 K/ul 10/15/2015 Cbc With Differential Ord2 Lymph ABS# 2.35 K/ul 10/15/2015 Cbc With Differential Ord2 [place] ABS# 0.8 K/ul 10/15/2015 Cbc With Differential Ord2 Eos ABS# 0.1 K/ul 10/15/2015 Cbc With Differential Ord2 Baso ABS# 0.1 K/ul 10/15/2015 Free T4 Eek832 FREE T4 0.71 ng/dL 10/15/2015 Comp Metabolic Jyu209 NA 135 mEq/L 10/15/2015 Comp Metabolic Lxo966 K 5.4 mEq/L 10/15/2015 Comp Metabolic Vte715 CL 104 mEq/L 10/15/2015 Comp Metabolic Pyf008 CO2 24.0 mEq/L 10/15/2015 Comp Metabolic Xwz915 ANION GAP 12 10/15/2015 Comp Metabolic Voy748 GLUCOSE 78 mg/dL 10/15/2015 Comp Metabolic Ycw910 Creat 0.5 mg/dL 10/15/2015 Comp Metabolic Jhm304 eGFR 156 ml/min/1.73m2 10/15/2015 Comp Metabolic Yxm187 BUN 11 mg/dL 10/15/2015 Comp Metabolic Pyt164 B/C Ratio 20.4 Ratio 10/15/2015 Comp Metabolic Jfc627 CALCIUM 9.6 mg/dL 10/15/2015 Comp Metabolic Skr608 ALK PHOS 60 U/L 10/15/2015 Comp Metabolic Hto709 AST(SGOT) 16 U/L 10/15/2015 Comp Metabolic Ghv499 ALT(SGPT) 13 U/L 10/15/2015 Comp Metabolic Kiu920 BILI T 0.2 mg/dL 10/15/2015 Comp Metabolic Ynl361 ALBUMIN 4.3 g/dL 10/15/2015 Comp Metabolic Gjc156 TPRO 7.6 g/dL 10/15/2015 Comp Metabolic Bro253 GLOB 3.3 g/dL 10/15/2015 Comp Metabolic Xap332 A/G Ratio 1.3 Ratio 10/15/2015 Comp Metabolic Xei256 Osmo 268 mOsmo 10/15/2015 Tsh Ord6 hTSH II 2.41 uIU/mL 10/15/2015 Tibc Ord40 Iron 39 ug/dl 08/11/2015 Tibc Ord40 UIBC 514 ug/dL 08/11/2015 Tibc Ord40 TIBC 553 ug/dL 08/11/2015 Tibc Ord40 Fe-%Sat 7.1 % 08/11/2015 Cbc With Differential Ord2 WBC 5.68 K/ul 08/11/2015 Cbc With Differential Ord2 RBC 4.27 M/ul 08/11/2015 Cbc With Differential Ord2 HGB 11.8 g/dl 08/11/2015 Cbc With Differential Ord2 HCT 35.4 % 08/11/2015 Cbc With Differential Ord2 Neut% 50.5 % 08/11/2015 Cbc With Differential Ord2 MCV 82.9 fl 08/11/2015 Cbc With Differential Ord2 Lymph% 37.1 % 08/11/2015 Cbc With Differential Ord2 MCH 27.6 pg 08/11/2015 Cbc With Differential Ord2 Wharton% 10.4 % 08/11/2015 Cbc With Differential Ord2 MCHC 33.3 pg 08/11/2015 Cbc With Differential Ord2 Eos% 1.6 % 08/11/2015 Cbc With Differential Ord2 PLT 339 K/ul 08/11/2015 Cbc With Differential Ord2 Baso% 0.4 % 08/11/2015 Cbc With Differential Ord2 RDW 14.8 % 08/11/2015 Cbc With Differential Ord2 Neut ABS# 2.87 K/ul 08/11/2015 Cbc With Differential Ord2 Lymph ABS# 2.11 K/ul 08/11/2015 Cbc With Differential Ord2 [place] ABS# 0.6 K/ul 08/11/2015 Cbc With Differential Ord2 Eos ABS# 0.1 K/ul 08/11/2015 Cbc With Differential Ord2 Baso ABS# 0.0 K/ul 08/11/2015 Tibc Ord40 Iron 18 ug/dl 04/24/2015 Tibc Ord40 UIBC 559 ug/dL 04/24/2015 Tibc Ord40 TIBC 577 ug/dL 04/24/2015 Tibc Ord40 Fe-%Sat 3.1 % 04/24/2015 Cbc With Differential Ord2 WBC 6.59 K/ul 04/24/2015 Cbc With Differential Ord2 RBC 3.64 M/ul 04/24/2015 Cbc With Differential Ord2 HGB 10.4 g/dl 04/24/2015 Cbc With Differential Ord2 HCT 31.5 % 04/24/2015 Cbc With Differential Ord2 Neut% 57.3 % 04/24/2015 Cbc With Differential Ord2 MCV 86.5 fl 04/24/2015 Cbc With Differential Ord2 Lymph% 31.1 % 04/24/2015 Cbc With Differential Ord2 MCH 28.6 pg 04/24/2015 Cbc With Differential Ord2 [place]arton% 9.7 % 04/24/2015 Cbc With Differential Ord2 MCHC 33.0 pg 04/24/2015 Cbc With Differential Ord2 Eos% 1.4 % 04/24/2015 Cbc With Differential Ord2 PLT 380 K/ul 04/24/2015 Cbc With Differential Ord2 Baso% 0.5 % 04/24/2015 Cbc With Differential Ord2 RDW 14.1 % 04/24/2015 Cbc With Differential Ord2 Neut ABS# 3.78 K/ul 04/24/2015 Cbc With Differential Ord2 Lymph ABS# 2.05 K/ul 04/24/2015 Cbc With Differential Ord2 [place] ABS# 0.6 K/ul 04/24/2015 Cbc With Differential Ord2 Eos ABS# 0.1 K/ul 04/24/2015 Cbc With Differential Ord2 Baso ABS# 0.0 K/ul 04/24/2015 Cbc With Differential Ord2 New Analyzer Notice Please note new ref ranges starting 03-05-2015 due to implemntation of new five part differential hematolgy analyzer. 04/24/2015 Review of Systems System Result Effective Dates Constitutional No recent illness 09/08/2018 Constitutional No chills 09/08/2018 Constitutional No diaphoresis 09/08/2018 Constitutional No fever 09/08/2018 Eyes No eye erythema 09/08/2018 Ears/Nose/Throat/Neck No nasal discharge 09/08/2018 Cardiovascular No chest pain/pressure 09/08/2018 Cardiovascular No dyspnea 09/08/2018 Respiratory No chest congestion 09/08/2018 Respiratory No cough 09/08/2018 Gastrointestinal No abdominal pain 09/08/2018 Neurologic No alteration of consciousness 09/08/2018 Neurologic No mental status change 09/08/2018 Neurologic headache 09/08/2018 Neurologic dizziness 09/08/2018 Musculoskeletal arthralgia(s) 09/08/2018 Constitutional No recent illness 08/15/2018 Constitutional No chills 08/15/2018 Constitutional No diaphoresis 08/15/2018 Constitutional No fever 08/15/2018 Eyes No eye erythema 08/15/2018 Ears/Nose/Throat/Neck No nasal allergies 08/15/2018 Ears/Nose/Throat/Neck No nasal discharge 08/15/2018 Cardiovascular No chest pain/pressure 08/15/2018 Cardiovascular No dyspnea 08/15/2018 Respiratory No chest congestion 08/15/2018 Respiratory No cough 08/15/2018 Gastrointestinal No abdominal pain 08/15/2018 Musculoskeletal No joint complaint 08/15/2018 Dermatologic No rash 08/15/2018 Neurologic No alteration of consciousness 08/15/2018 Neurologic No mental status change 08/15/2018 Psychiatric anxiety 08/15/2018 Psychiatric depression 08/15/2018 Psychiatric No suicidality 08/15/2018 Constitutional No recent illness 08/02/2018 Constitutional No chills 08/02/2018 Constitutional No diaphoresis 08/02/2018 Constitutional No fever 08/02/2018 Eyes No eye erythema 08/02/2018 Ears/Nose/Throat/Neck No nasal allergies 08/02/2018 Ears/Nose/Throat/Neck No nasal discharge 08/02/2018 Cardiovascular No chest pain/pressure 08/02/2018 Cardiovascular No dyspnea 08/02/2018 Respiratory No chest congestion 08/02/2018 Respiratory No cough 08/02/2018 Gastrointestinal No abdominal pain 08/02/2018 Gastrointestinal No constipation 08/02/2018 Gastrointestinal No diarrhea 08/02/2018 Gastrointestinal No hematochezia 08/02/2018 Gastrointestinal No melena 08/02/2018 Gastrointestinal No nausea 08/02/2018 Gastrointestinal No vomiting 08/02/2018 Musculoskeletal No joint complaint 08/02/2018 Dermatologic No rash 08/02/2018 Neurologic No alteration of consciousness 08/02/2018 Neurologic No mental status change 08/02/2018 Psychiatric anxiety 08/02/2018 Psychiatric depression 08/02/2018 Psychiatric No suicidality 08/02/2018 Psychiatric No hallucination 08/02/2018 Constitutional recent illness 05/26/2016 Constitutional fatigue 05/26/2016 Constitutional No fever 05/26/2016 Constitutional malaise 05/26/2016 Eyes No eye erythema 05/26/2016 Ears/Nose/Throat/Neck No nasal allergies 05/26/2016 Ears/Nose/Throat/Neck No nasal discharge 05/26/2016 Cardiovascular No chest pain/pressure 05/26/2016 Cardiovascular No dyspnea 05/26/2016 Respiratory No dyspnea 05/26/2016 Respiratory No cough 05/26/2016 Gastrointestinal abdominal pain 05/26/2016 Gastrointestinal diarrhea 05/26/2016 Gastrointestinal No constipation 05/26/2016 Gastrointestinal nausea 05/26/2016 Gastrointestinal No vomiting 05/26/2016 Neurologic No alteration of consciousness 05/26/2016 Neurologic No mental status change 05/26/2016 Respiratory dyspnea on exertion 05/26/2016 Constitutional recent illness 03/04/2016 Constitutional chills 03/04/2016 Constitutional No diaphoresis 03/04/2016 Constitutional fever 03/04/2016 Eyes No eye erythema 03/04/2016 Ears/Nose/Throat/Neck nasal allergies 03/04/2016 Ears/Nose/Throat/Neck nasal discharge 03/04/2016 Ears/Nose/Throat/Neck postnasal drip 03/04/2016 Ears/Nose/Throat/Neck sinus congestion 03/04/2016 Ears/Nose/Throat/Neck sore throat 03/04/2016 Cardiovascular No chest pain/pressure 03/04/2016 Cardiovascular No dyspnea 03/04/2016 Respiratory No chest congestion 03/04/2016 Respiratory cough 03/04/2016 Respiratory No dyspnea 03/04/2016 Gastrointestinal No constipation 03/04/2016 Gastrointestinal No diarrhea 03/04/2016 Dermatologic No rash 03/04/2016 Neurologic No alteration of consciousness 03/04/2016 Neurologic No mental status change 03/04/2016 Constitutional recent illness 02/10/2016 Constitutional anorexia 02/10/2016 Constitutional No night sweats 02/10/2016 Constitutional No chills 02/10/2016 Constitutional fatigue 02/10/2016 Constitutional No diaphoresis 02/10/2016 Constitutional No fever 02/10/2016 Constitutional No insomnia 02/10/2016 Constitutional No malaise 02/10/2016 Constitutional No weight loss 02/10/2016 Constitutional No weight gain 02/10/2016 Eyes No eye discharge 02/10/2016 Eyes No eye erythema 02/10/2016 Ears/Nose/Throat/Neck No dizziness 02/10/2016 Cardiovascular No chest pain/pressure 02/10/2016 Respiratory No cough 02/10/2016 Gastrointestinal No abdominal pain 02/10/2016 Gastrointestinal No constipation 02/10/2016 Gastrointestinal No diarrhea 02/10/2016 Gastrointestinal nausea 02/10/2016 Genitourinary/Nephrology dysuria 02/10/2016 Genitourinary/Nephrology pelvic pain 02/10/2016 Musculoskeletal No joint complaint 02/10/2016 Dermatologic No rash 02/10/2016 Constitutional recent illness 01/19/2016 Constitutional No anorexia 01/19/2016 Constitutional No night sweats 01/19/2016 Constitutional No chills 01/19/2016 Constitutional No diaphoresis 01/19/2016 Constitutional fatigue 01/19/2016 Constitutional No fever 01/19/2016 Constitutional insomnia 01/19/2016 Constitutional No malaise 01/19/2016 Constitutional No weight loss 01/19/2016 Constitutional No weight gain 01/19/2016 Eyes No eye discharge 01/19/2016 Eyes No eye erythema 01/19/2016 Ears/Nose/Throat/Neck No dizziness 01/19/2016 Ears/Nose/Throat/Neck headache 01/19/2016 Ears/Nose/Throat/Neck nasal discharge 01/19/2016 Ears/Nose/Throat/Neck No otalgia 01/19/2016 Ears/Nose/Throat/Neck sinus congestion 01/19/2016 Ears/Nose/Throat/Neck sore throat 01/19/2016 Cardiovascular No chest pain/pressure 01/19/2016 Cardiovascular No dyspnea 01/19/2016 Cardiovascular No edema 01/19/2016 Respiratory productive sputum 01/19/2016 Respiratory No chest congestion 01/19/2016 Respiratory cough 01/19/2016 Gastrointestinal No abdominal pain 01/19/2016 Genitourinary/Nephrology No dysuria 01/19/2016 Musculoskeletal No joint complaint 01/19/2016 Dermatologic No rash 01/19/2016 Neurologic No alteration of consciousness 01/19/2016 Constitutional No recent illness 11/17/2015 Constitutional No chills 11/17/2015 Constitutional No diaphoresis 11/17/2015 Constitutional No fever 11/17/2015 Eyes No eye discharge 11/17/2015 Eyes No eye erythema 11/17/2015 Ears/Nose/Throat/Neck No nasal allergies 11/17/2015 Ears/Nose/Throat/Neck No nasal discharge 11/17/2015 Cardiovascular No chest pain/pressure 11/17/2015 Cardiovascular No dyspnea 11/17/2015 Respiratory No cough 11/17/2015 Respiratory No dyspnea 11/17/2015 Gastrointestinal No vomiting 11/17/2015 Musculoskeletal No joint complaint 11/17/2015 Dermatologic No rash 11/17/2015 Neurologic No alteration of consciousness 11/17/2015 Neurologic No mental status change 11/17/2015 Psychiatric anxiety 11/17/2015 Psychiatric depression 11/17/2015 Constitutional fatigue 11/17/2015 Constitutional No diaphoresis 10/14/2015 Constitutional No fever 10/14/2015 Constitutional malaise 10/14/2015 Eyes No eye discharge 10/14/2015 Eyes No eye erythema 10/14/2015 Cardiovascular No chest pain/pressure 10/14/2015 Respiratory No cough 10/14/2015 Gastrointestinal No abdominal pain 10/14/2015 Gastrointestinal No constipation 10/14/2015 Gastrointestinal No diarrhea 10/14/2015 Gastrointestinal No nausea 10/14/2015 Gastrointestinal No vomiting 10/14/2015 Dermatologic No rash 10/14/2015 Neurologic No alteration of consciousness 10/14/2015 Psychiatric anxiety 10/14/2015 Endocrine dry or coarse skin 10/14/2015 Constitutional No recent illness 10/14/2015 Constitutional weight gain 10/14/2015 Constitutional No chills 10/14/2015 Constitutional fatigue 10/14/2015 Ears/Nose/Throat/Neck hoarseness 10/14/2015 Ears/Nose/Throat/Neck No nasal allergies 10/14/2015 Ears/Nose/Throat/Neck No nasal discharge 10/14/2015 Cardiovascular No dyspnea 10/14/2015 Respiratory No chest congestion 10/14/2015 Respiratory No dyspnea 10/14/2015 Musculoskeletal No joint complaint 10/14/2015 Neurologic No mental status change 10/14/2015 Psychiatric depression 10/14/2015 Endocrine cold sensitivity 10/14/2015 Endocrine weight gain 10/14/2015 Constitutional recent illness 09/23/2015 Constitutional No anorexia 09/23/2015 Constitutional No night sweats 09/23/2015 Constitutional No chills 09/23/2015 Constitutional No diaphoresis 09/23/2015 Constitutional No fatigue 09/23/2015 Constitutional No fever 09/23/2015 Constitutional No insomnia 09/23/2015 Constitutional No malaise 09/23/2015 Constitutional No weight loss 09/23/2015 Constitutional No weight gain 09/23/2015 Eyes No eye discharge 09/23/2015 Eyes No eye erythema 09/23/2015 Ears/Nose/Throat/Neck No headache 09/23/2015 Ears/Nose/Throat/Neck No dizziness 09/23/2015 Cardiovascular No chest pain/pressure 09/23/2015 Respiratory No cough 09/23/2015 Gastrointestinal No abdominal pain 09/23/2015 Gastrointestinal No constipation 09/23/2015 Gastrointestinal No diarrhea 09/23/2015 Gastrointestinal No vomiting 09/23/2015 Gastrointestinal No nausea 09/23/2015 Genitourinary/Nephrology No dysuria 09/23/2015 Genitourinary/Nephrology No urinary tract obstruction 09/23/2015 Musculoskeletal No joint complaint 09/23/2015 Dermatologic No rash 09/23/2015 Neurologic No alteration of consciousness 09/23/2015 Psychiatric No anxiety 09/23/2015 Endocrine No dry or coarse skin 09/23/2015 Hematologic/Lymphatic No abnormal bleeding and bruising 09/23/2015 Gastrointestinal abdominal pain 06/13/2015 Gastrointestinal constipation 06/13/2015 Gastrointestinal No diarrhea 06/13/2015 Gastrointestinal nausea 06/13/2015 Gastrointestinal No vomiting 06/13/2015 Genitourinary/Nephrology No dysuria 06/13/2015 Constitutional No recent illness 06/13/2015 Constitutional No anorexia 06/13/2015 Constitutional No night sweats 06/13/2015 Constitutional No chills 06/13/2015 Constitutional No diaphoresis 06/13/2015 Constitutional No fatigue 06/13/2015 Constitutional No fever 06/13/2015 Constitutional No insomnia 06/13/2015 Constitutional No malaise 06/13/2015 Constitutional No weight loss 06/13/2015 Constitutional No weight gain 06/13/2015 Constitutional No obesity 06/13/2015 Eyes No eye discharge 06/13/2015 Eyes No eye erythema 06/13/2015 Ears/Nose/Throat/Neck No dizziness 06/13/2015 Ears/Nose/Throat/Neck No headache 06/13/2015 Cardiovascular No chest pain/pressure 06/13/2015 Respiratory No productive sputum 06/13/2015 Musculoskeletal No joint complaint 06/13/2015 Dermatologic No rash 06/13/2015 Dermatologic No sores 06/13/2015 Neurologic No alteration of consciousness 06/13/2015 Constitutional No chills 05/21/2015 Constitutional No diaphoresis 05/21/2015 Constitutional No fatigue 05/21/2015 Constitutional No fever 05/21/2015 Constitutional No insomnia 05/21/2015 Constitutional No malaise 05/21/2015 Eyes No eye discharge 05/21/2015 Eyes No eye erythema 05/21/2015 Ears/Nose/Throat/Neck No headache 05/21/2015 Cardiovascular No chest pain/pressure 05/21/2015 Respiratory No productive sputum 05/21/2015 Gastrointestinal No diarrhea 05/21/2015 Gastrointestinal No vomiting 05/21/2015 Genitourinary/Nephrology dysuria 05/21/2015 Musculoskeletal No joint complaint 05/21/2015 Dermatologic No rash 05/21/2015 Dermatologic No sores 05/21/2015 Neurologic No alteration of consciousness 05/21/2015 Ears/Nose/Throat/Neck No nasal allergies 05/21/2015 Ears/Nose/Throat/Neck No nasal discharge 05/21/2015 Cardiovascular No dyspnea 05/21/2015 Respiratory No cough 05/21/2015 Gastrointestinal No nausea 05/21/2015 Genitourinary/Nephrology flank pain 05/21/2015 Constitutional recent illness 04/24/2015 Constitutional No chills 04/24/2015 Constitutional fatigue 04/24/2015 Constitutional No fever 04/24/2015 Constitutional No insomnia 04/24/2015 Constitutional malaise 04/24/2015 Eyes No blindness 04/24/2015 Eyes No vision change 04/24/2015 Ears/Nose/Throat/Neck No dental pain 04/24/2015 Ears/Nose/Throat/Neck No dizziness 04/24/2015 Ears/Nose/Throat/Neck No dysphagia 04/24/2015 Ears/Nose/Throat/Neck No headache 04/24/2015 Ears/Nose/Throat/Neck No hearing loss 04/24/2015 Ears/Nose/Throat/Neck No nasal allergies 04/24/2015 Ears/Nose/Throat/Neck No sore throat 04/24/2015 Ears/Nose/Throat/Neck No postnasal drip 04/24/2015 Ears/Nose/Throat/Neck No sinus congestion 04/24/2015 Cardiovascular No chest pain/pressure 04/24/2015 Cardiovascular No dyspnea 04/24/2015 Cardiovascular No edema 04/24/2015 Cardiovascular No exercise intolerance 04/24/2015 Cardiovascular No fatigue 04/24/2015 Cardiovascular No near-syncope/dizziness 04/24/2015 Respiratory No chest tightness 04/24/2015 Respiratory No cough 04/24/2015 Respiratory No dyspnea 04/24/2015 Respiratory No pedal edema 04/24/2015 Gastrointestinal No abdominal pain 04/24/2015 Gastrointestinal No constipation 04/24/2015 Gastrointestinal No diarrhea 04/24/2015 Gastrointestinal No gastroesophageal reflux 04/24/2015 Gastrointestinal No nausea 04/24/2015 Gastrointestinal No vomiting 04/24/2015 Genitourinary/Nephrology No dysuria 04/24/2015 Genitourinary/Nephrology No nocturia 04/24/2015 Genitourinary/Nephrology No urinary incontinence 04/24/2015 Musculoskeletal No stiffness 04/24/2015 Musculoskeletal No swelling 04/24/2015 Musculoskeletal No muscle weakness 04/24/2015 Musculoskeletal No myalgias 04/24/2015 Dermatologic No rash 04/24/2015 Dermatologic No sores 04/24/2015 Dermatologic No scar 04/24/2015 Neurologic No dizziness 04/24/2015 Neurologic No headache 04/24/2015 Neurologic No neck pain 04/24/2015 Neurologic No syncope 04/24/2015 Psychiatric No anxiety 04/24/2015 Psychiatric No depression 04/24/2015 Hematologic/Lymphatic abnormal ecchymoses 04/24/2015 Hematologic/Lymphatic abnormal bleeding and bruising 04/24/2015 Hematologic/Lymphatic anemia 04/24/2015 Physical Exam Exam Name System Name Item Name Status Result Effective Dates Notes Full Exam - General 1994 Constitutional general appearance Overall: well developed 09/08/2018 None Full Exam - General 1994 Constitutional general appearance Overall: in no acute distress 09/08/2018 None Full Exam - General 1994 Constitutional general appearance Overall: well nourished 09/08/2018 None Full Exam - General 1994 Eyes conjunctiva/eyelids Overall: conjunctiva clear 09/08/2018 None Full Exam - General 1994 Eyes conjunctiva/eyelids Overall: cornea clear 09/08/2018 None Full Exam - General 1994 Eyes conjunctiva/eyelids Overall: eyelids normal 09/08/2018 None Full Exam - General 1994 Ears/Nose/Throat lips/teeth/gingiva Overall: benign lips 09/08/2018 None Full Exam - General 1994 Ears/Nose/Throat oral cavity/pharynx/larynx Overall: oral mucosa clear 09/08/2018 None Full Exam - General 1994 Ears/Nose/Throat oral cavity/pharynx/larynx Overall: oropharyngeal mucosa clear 09/08/2018 None Full Exam - General 1994 Respiratory auscultation Overall: breath sounds clear bilaterally 09/08/2018 None Full Exam - General 1994 Respiratory respiratory effort/rhythm Overall: no retractions 09/08/2018 None Full Exam - General 1994 Respiratory respiratory effort/rhythm Overall: normal rate 09/08/2018 None Full Exam - General 1994 Cardiovascular auscultation of heart Overall: regular rate 09/08/2018 None Full Exam - General 1994 Cardiovascular auscultation of heart Overall: normal heart sounds 09/08/2018 None Full Exam - General 1994 Musculoskeletal head and neck Overall: head atraumatic 09/08/2018 None Full Exam - General 1994 Neurologic cranial nerves Overall: crainial nerves 2 - 12 grossly intact 09/08/2018 None Full Exam - General 1994 Psychiatric orientation/consciousness Overall: oriented to person, place and time 09/08/2018 None Full Exam - General 1994 Psychiatric mood and affect Overall: normal mood and affect 09/08/2018 None Full Exam - General 1994 Psychiatric appearance Overall: well-groomed, good eye contact 09/08/2018 None Full Exam - General 1994 Neurologic coordination Overall: no tremors 09/08/2018 None Full Exam - General 1994 Neurologic coordination Overall: no dysdiadochokinesis, no dysmetria 09/08/2018 None Full Exam - General 1994 Neurologic gait Overall: no ataxia, no unsteadiness 09/08/2018 None Full Exam - General 1994 Constitutional general appearance Overall: well developed 08/15/2018 None Full Exam - General 1994 Constitutional general appearance Overall: in no acute distress 08/15/2018 None Full Exam - General 1994 Constitutional general appearance Overall: well nourished 08/15/2018 None Full Exam - General 1994 Eyes conjunctiva/eyelids Overall: conjunctiva clear 08/15/2018 None Full Exam - General 1994 Eyes conjunctiva/eyelids Overall: cornea clear 08/15/2018 None Full Exam - General 1994 Eyes conjunctiva/eyelids Overall: eyelids normal 08/15/2018 None Full Exam - General 1994 Ears/Nose/Throat lips/teeth/gingiva Overall: benign lips 08/15/2018 None Full Exam - General 1994 Ears/Nose/Throat oral cavity/pharynx/larynx Overall: oral mucosa clear 08/15/2018 None Full Exam - General 1994 Respiratory respiratory effort/rhythm Overall: no retractions 08/15/2018 None Full Exam - General 1994 Respiratory respiratory effort/rhythm Overall: normal rate 08/15/2018 None Full Exam - General 1994 Cardiovascular extremities Overall: no clubbing 08/15/2018 None Full Exam - General 1994 Musculoskeletal gait and station Overall: normal gait 08/15/2018 None Full Exam - General 1994 Musculoskeletal gait and station Overall: normal station 08/15/2018 None Full Exam - General 1994 Musculoskeletal head and neck Overall: head atraumatic 08/15/2018 None Full Exam - General 1994 Neurologic cranial nerves Overall: crainial nerves 2 - 12 grossly intact 08/15/2018 None Full Exam - General 1994 Psychiatric orientation/consciousness Overall: oriented to person, place and time 08/15/2018 None Full Exam - General 1994 Psychiatric mood and affect Overall: normal mood and affect 08/15/2018 None Full Exam - General 1994 Constitutional general appearance Overall: well developed 08/02/2018 None Full Exam - General 1994 Constitutional general appearance Overall: in no acute distress 08/02/2018 None Full Exam - General 1994 Constitutional general appearance Overall: well nourished 08/02/2018 None Full Exam - General 1994 Eyes conjunctiva/eyelids Overall: conjunctiva clear 08/02/2018 None Full Exam - General 1994 Eyes conjunctiva/eyelids Overall: cornea clear 08/02/2018 None Full Exam - General 1994 Eyes conjunctiva/eyelids Overall: eyelids normal 08/02/2018 None Full Exam - General 1994 Eyes pupils and irises Overall: pupils equal, round, reactive to light and accomodation 08/02/2018 None Full Exam - General 1994 Ears/Nose/Throat otoscopic exam Overall: external auditory canals clear 08/02/2018 None Full Exam - General 1994 Ears/Nose/Throat otoscopic exam Overall: tympanic membranes clear 08/02/2018 None Full Exam - General 1994 Ears/Nose/Throat lips/teeth/gingiva Overall: benign lips 08/02/2018 None Full Exam - General 1994 Ears/Nose/Throat oral cavity/pharynx/larynx Overall: oral mucosa clear 08/02/2018 None Full Exam - General 1994 Ears/Nose/Throat oral cavity/pharynx/larynx Overall: oropharyngeal mucosa clear 08/02/2018 None Full Exam - General 1994 Respiratory auscultation Overall: breath sounds clear bilaterally 08/02/2018 None Full Exam - General 1994 Respiratory respiratory effort/rhythm Overall: no retractions 08/02/2018 None Full Exam - General 1994 Respiratory respiratory effort/rhythm Overall: normal rate 08/02/2018 None Full Exam - General 1994 Cardiovascular extremities Overall: no clubbing 08/02/2018 None Full Exam - General 1994 Cardiovascular auscultation of heart Overall: regular rate 08/02/2018 None Full Exam - General 1994 Cardiovascular auscultation of heart Overall: normal heart sounds 08/02/2018 None Full Exam - General 1994 Abdomen abdominal exam Overall: no tenderness 08/02/2018 None Full Exam - General 1994 Abdomen abdominal exam Overall: normal bowel sounds 08/02/2018 None Full Exam - General 1994 Musculoskeletal gait and station Overall: normal gait 08/02/2018 None Full Exam - General 1994 Musculoskeletal gait and station Overall: normal station 08/02/2018 None Full Exam - General 1994 Musculoskeletal head and neck Overall: head atraumatic 08/02/2018 None Full Exam - General 1994 Neurologic cranial nerves Overall: crainial nerves 2 - 12 grossly intact 08/02/2018 None Full Exam - General 1994 Psychiatric orientation/consciousness Overall: oriented to person, place and time 08/02/2018 None Full Exam - General 1994 Psychiatric mood and affect Overall: normal mood and affect 08/02/2018 None Full Exam - General 1994 Psychiatric appearance Overall: well-groomed, good eye contact 08/02/2018 None Full Exam - General 1994 Constitutional general appearance Overall: well developed 05/26/2016 None Full Exam - General 1994 Constitutional general appearance Overall: well nourished 05/26/2016 None Full Exam - General 1994 Constitutional general appearance Overall: in no acute distress 05/26/2016 None Full Exam - General 1994 Eyes conjunctiva/eyelids Overall: conjunctiva clear 05/26/2016 None Full Exam - General 1994 Eyes conjunctiva/eyelids Overall: eyelids normal 05/26/2016 None Full Exam - General 1994 Ears/Nose/Throat lips/teeth/gingiva Overall: benign lips 05/26/2016 None Full Exam - General 1994 Ears/Nose/Throat oral cavity/pharynx/larynx Overall: oral mucosa clear 05/26/2016 None Full Exam - General 1994 Ears/Nose/Throat otoscopic exam Overall: external auditory canals clear 05/26/2016 None Full Exam - General 1994 Ears/Nose/Throat otoscopic exam Overall: tympanic membranes clear 05/26/2016 None Full Exam - General 1994 Respiratory auscultation Overall: breath sounds clear bilaterally 05/26/2016 None Full Exam - General 1994 Respiratory respiratory effort/rhythm Overall: no retractions 05/26/2016 None Full Exam - General 1994 Respiratory respiratory effort/rhythm Overall: normal rate 05/26/2016 None Full Exam - General 1994 Cardiovascular auscultation of heart Overall: regular rate 05/26/2016 None Full Exam - General 1994 Cardiovascular auscultation of heart Overall: normal heart sounds 05/26/2016 None Full Exam - General 1994 Abdomen abdominal exam Overall: normal bowel sounds 05/26/2016 None Full Exam - General 1994 Abdomen abdominal exam Upper quadrant: tender to palpation 05/26/2016 None Full Exam - General 1994 Abdomen abdominal exam Upper quadrant: dull pain 05/26/2016 None Full Exam - General 1994 Abdomen abdominal exam Upper quadrant: no guarding 05/26/2016 None Full Exam - General 1994 Abdomen abdominal exam Upper quadrant: no rebound tenderness 05/26/2016 None Full Exam - General 1994 Abdomen abdominal exam Upper quadrant: no mass lesions 05/26/2016 None Full Exam - General 1994 Abdomen abdominal exam Upper quadrant: soft 05/26/2016 None Full Exam - General 1994 Neurologic cranial nerves Overall: crainial nerves 2 - 12 grossly intact 05/26/2016 None Full Exam - General 1994 Psychiatric orientation/consciousness Overall: oriented to person, place and time 05/26/2016 None Full Exam - General 1994 Psychiatric mood and affect Overall: normal mood and affect 05/26/2016 None Full Exam - General 1994 Psychiatric appearance Overall: well-groomed, good eye contact 05/26/2016 None Full Exam - General 1994 Abdomen abdominal exam Epigastric: tender to palpation 05/26/2016 None Full Exam - General 1994 Abdomen abdominal exam Epigastric: dull pain 05/26/2016 None Full Exam - General 1994 Abdomen abdominal exam Epigastric: no guarding 05/26/2016 None Full Exam - General 1994 Abdomen abdominal exam Epigastric: no rebound tenderness 05/26/2016 None Full Exam - General 1994 Abdomen abdominal exam Epigastric: no mass lesions 05/26/2016 None Full Exam - General 1994 Abdomen abdominal exam Epigastric: soft 05/26/2016 None Full Exam - ENT Constitutional general appearance Overall: well nourished 03/04/2016 None Full Exam - ENT Constitutional general appearance Overall: well developed 03/04/2016 None Full Exam - ENT Ears/Nose/Throat otoscopic exam Overall: external auditory canals normal 03/04/2016 None Full Exam - ENT Ears/Nose/Throat otoscopic exam Left tympanic membrane: air-fluid level 03/04/2016 None Full Exam - ENT Ears/Nose/Throat otoscopic exam Right tympanic membrane: air-fluid level 03/04/2016 None Full Exam - ENT Ears/Nose/Throat lips/teeth/gingiva Overall: benign lips 03/04/2016 None Full Exam - ENT Ears/Nose/Throat oropharynx Overall: oral mucosa clear 03/04/2016 None Full Exam - ENT Ears/Nose/Throat oropharynx Posterior Pharynx: clear post nasal drainage 03/04/2016 None Full Exam - ENT Respiratory inspection Overall: no retractions 03/04/2016 None Full Exam - ENT Respiratory inspection Overall: normal rate 03/04/2016 None Full Exam - ENT Respiratory auscultation Overall: breath sounds clear bilaterally 03/04/2016 None Full Exam - ENT Cardiovascular auscultation of heart Rate: normal rate 03/04/2016 None Full Exam - ENT Cardiovascular auscultation of heart Rhythm: regular rhythm 03/04/2016 None Full Exam - ENT Lymphatic palpation of lymph nodes Overall: anterior cervical chain benign 03/04/2016 None Full Exam - ENT Lymphatic palpation of lymph nodes Overall: posterior cervical chain benign 03/04/2016 None Full Exam - ENT Neurologic mood and affect Overall: normal mood 03/04/2016 None Full Exam - ENT Neurologic mood and affect Overall: normal affect 03/04/2016 None Full Exam - ENT Neurologic orientation Overall: oriented to person, place and time 03/04/2016 None Full Exam - General 1994 Constitutional general appearance Overall: well developed 02/10/2016 None Full Exam - General 1994 Constitutional general appearance Overall: in no acute distress 02/10/2016 None Full Exam - General 1994 Constitutional general appearance Overall: well nourished 02/10/2016 None Full Exam - General 1994 Eyes conjunctiva/eyelids Overall: conjunctiva clear 02/10/2016 None Full Exam - General 1994 Eyes conjunctiva/eyelids Overall: cornea clear 02/10/2016 None Full Exam - General 1994 Eyes conjunctiva/eyelids Overall: eyelids normal 02/10/2016 None Full Exam - General 1994 Ears/Nose/Throat otoscopic exam Overall: external auditory canals clear 02/10/2016 None Full Exam - General 1994 Ears/Nose/Throat otoscopic exam Overall: tympanic membranes clear 02/10/2016 None Full Exam - General 1994 Ears/Nose/Throat lips/teeth/gingiva Overall: benign lips 02/10/2016 None Full Exam - General 1994 Ears/Nose/Throat lips/teeth/gingiva Overall: normal dentition 02/10/2016 None Full Exam - General 1994 Ears/Nose/Throat oral cavity/pharynx/larynx Overall: oral mucosa clear 02/10/2016 None Full Exam - General 1994 Respiratory auscultation Overall: breath sounds clear bilaterally 02/10/2016 None Full Exam - General 1994 Respiratory respiratory effort/rhythm Overall: no retractions 02/10/2016 None Full Exam - General 1994 Respiratory respiratory effort/rhythm Overall: normal rate 02/10/2016 None Full Exam - General 1994 Cardiovascular extremities Overall: no clubbing 02/10/2016 None Full Exam - General 1994 Cardiovascular auscultation of heart Overall: regular rate 02/10/2016 None Full Exam - General 1994 Cardiovascular auscultation of heart Overall: normal heart sounds 02/10/2016 None Full Exam - General 1994 Musculoskeletal spine, ribs and pelvis Overall: good posture 02/10/2016 None Full Exam - General 1994 Integument inspection of skin Overall: no rash, lesions 02/10/2016 None Full Exam - General 1994 Neurologic cranial nerves Overall: crainial nerves 2 - 12 grossly intact 02/10/2016 None Full Exam - General 1994 Psychiatric orientation/consciousness Overall: oriented to person, place and time 02/10/2016 None Full Exam - General 1994 Psychiatric mood and affect Overall: normal mood and affect 02/10/2016 None Full Exam - General 1994 Psychiatric appearance Overall: well-groomed, good eye contact 02/10/2016 None Full Exam - General 1994 Abdomen abdominal exam Overall: no tenderness 02/10/2016 None Full Exam - General 1994 Abdomen abdominal exam Overall: normal bowel sounds 02/10/2016 None Full Exam - ENT Constitutional general appearance Overall: well nourished 01/19/2016 None Full Exam - ENT Constitutional general appearance Overall: well developed 01/19/2016 None Full Exam - ENT Constitutional general appearance Overall: in no acute distress 01/19/2016 None Full Exam - ENT Neurologic orientation Overall: oriented to person, place and time 01/19/2016 None Full Exam - ENT Integument inspection of skin Overall: no rash, lesions 01/19/2016 None Full Exam - ENT Musculoskeletal head and neck Overall: head atraumatic 01/19/2016 None Full Exam - ENT Lymphatic palpation of lymph nodes Overall: anterior cervical chain benign 01/19/2016 None Full Exam - ENT Lymphatic palpation of lymph nodes Overall: posterior cervical chain benign 01/19/2016 None Full Exam - ENT Cardiovascular auscultation of heart Overall: regular rate 01/19/2016 None Full Exam - ENT Cardiovascular auscultation of heart Overall: normal heart sounds 01/19/2016 None Full Exam - ENT Respiratory auscultation Overall: breath sounds clear bilaterally 01/19/2016 None Full Exam - ENT Respiratory inspection Overall: no retractions 01/19/2016 None Full Exam - ENT Respiratory inspection Overall: normal rate 01/19/2016 None Full Exam - ENT Face and Head palpation Left maxillary sinus: tender 01/19/2016 None Full Exam - ENT Face and Head palpation Right maxillary sinus: tender 01/19/2016 None Full Exam - ENT Ears/Nose/Throat otoscopic exam Overall: external auditory canals normal 01/19/2016 None Full Exam - ENT Ears/Nose/Throat otoscopic exam Overall: tympanic membranes normal 01/19/2016 None Full Exam - ENT Ears/Nose/Throat oropharynx Overall: oral mucosa clear 01/19/2016 None Full Exam - General 1994 Eyes conjunctiva/eyelids Overall: conjunctiva clear 11/17/2015 None Full Exam - General 1994 Eyes conjunctiva/eyelids Overall: cornea clear 11/17/2015 None Full Exam - General 1994 Eyes conjunctiva/eyelids Overall: eyelids normal 11/17/2015 None Full Exam - General 1994 Ears/Nose/Throat lips/teeth/gingiva Overall: benign lips 11/17/2015 None Full Exam - General 1994 Ears/Nose/Throat lips/teeth/gingiva Overall: normal dentition 11/17/2015 None Full Exam - General 1994 Ears/Nose/Throat oral cavity/pharynx/larynx Overall: oral mucosa clear 11/17/2015 None Full Exam - General 1994 Respiratory auscultation Overall: breath sounds clear bilaterally 11/17/2015 None Full Exam - General 1994 Respiratory respiratory effort/rhythm Overall: no retractions 11/17/2015 None Full Exam - General 1994 Respiratory respiratory effort/rhythm Overall: normal rate 11/17/2015 None Full Exam - General 1994 Cardiovascular extremities Overall: no clubbing 11/17/2015 None Full Exam - General 1994 Cardiovascular auscultation of heart Overall: regular rate 11/17/2015 None Full Exam - General 1994 Cardiovascular auscultation of heart Overall: normal heart sounds 11/17/2015 None Full Exam - General 1994 Musculoskeletal spine, ribs and pelvis Overall: good posture 11/17/2015 None Full Exam - General 1994 Integument inspection of skin Overall: no rash, lesions 11/17/2015 None Full Exam - General 1994 Neurologic cranial nerves Overall: crainial nerves 2 - 12 grossly intact 11/17/2015 None Full Exam - General 1994 Psychiatric orientation/consciousness Overall: oriented to person, place and time 11/17/2015 None Full Exam - General 1994 Psychiatric mood and affect Overall: normal mood and affect 11/17/2015 None Full Exam - General 1994 Psychiatric appearance Overall: well-groomed, good eye contact 11/17/2015 None Full Exam - General 1994 Constitutional general appearance Overall: well developed 11/17/2015 None Full Exam - General 1994 Constitutional general appearance Overall: in no acute distress 11/17/2015 None Full Exam - General 1994 Constitutional general appearance Overall: well nourished 11/17/2015 None Full Exam - General 1994 Ears/Nose/Throat otoscopic exam Overall: external auditory canals clear 11/17/2015 None Full Exam - General 1994 Ears/Nose/Throat otoscopic exam Overall: tympanic membranes clear 11/17/2015 None Full Exam - General 1994 Constitutional general appearance Development: well developed 10/14/2015 None Full Exam - General 1994 Constitutional general appearance Development: appears stated age 0810/14/2015 None Full Exam - General 1994 Constitutional general appearance Hygiene/Attention to Grooming: good hygiene 10/14/2015 None Full Exam - General 1994 Eyes conjunctiva/eyelids Overall: conjunctiva clear 10/14/2015 None Full Exam - General 1994 Eyes conjunctiva/eyelids Overall: cornea clear 10/14/2015 None Full Exam - General 1994 Eyes conjunctiva/eyelids Overall: eyelids normal 10/14/2015 None Full Exam - General 1994 Eyes pupils and irises Overall: pupils equal, round, reactive to light and accomodation 10/14/2015 None Full Exam - General 1994 Ears/Nose/Throat lips/teeth/gingiva Overall: benign lips 10/14/2015 None Full Exam - General 1994 Ears/Nose/Throat lips/teeth/gingiva Overall: normal dentition 10/14/2015 None Full Exam - General 1994 Ears/Nose/Throat oral cavity/pharynx/larynx Overall: oral mucosa clear 10/14/2015 None Full Exam - General 1994 Ears/Nose/Throat oral cavity/pharynx/larynx Overall: oropharyngeal mucosa clear 10/14/2015 None Full Exam - General 1994 Ears/Nose/Throat oral cavity/pharynx/larynx Overall: no masses 10/14/2015 None Full Exam - General 1994 Respiratory auscultation Overall: breath sounds clear bilaterally 10/14/2015 None Full Exam - General 1994 Respiratory respiratory effort/rhythm Overall: no retractions 10/14/2015 None Full Exam - General 1994 Respiratory respiratory effort/rhythm Overall: normal rate 10/14/2015 None Full Exam - General 1994 Cardiovascular extremities Overall: no clubbing 10/14/2015 None Full Exam - General 1994 Cardiovascular auscultation of heart Overall: regular rate 10/14/2015 None Full Exam - General 1994 Cardiovascular auscultation of heart Overall: normal heart sounds 10/14/2015 None Full Exam - General 1994 Abdomen abdominal exam Overall: no tenderness 10/14/2015 None Full Exam - General 1994 Abdomen abdominal exam Overall: normal bowel sounds 10/14/2015 None Full Exam - General 1994 Musculoskeletal spine, ribs and pelvis Overall: good posture 10/14/2015 None Full Exam - General 1994 Musculoskeletal head and neck Overall: head atraumatic 10/14/2015 None Full Exam - General 1994 Musculoskeletal head and neck Overall: cervical spine benign 10/14/2015 None Full Exam - General 1994 Neurologic cranial nerves Overall: crainial nerves 2 - 12 grossly intact 10/14/2015 None Full Exam - General 1994 Psychiatric orientation/consciousness Overall: oriented to person, place and time 10/14/2015 None Full Exam - General 1994 Psychiatric mood and affect Overall: normal mood and affect 10/14/2015 None Full Exam - General 1994 Integument inspection of skin Overall: no rash, lesions 10/14/2015 None Full Exam - General 1994 Psychiatric appearance Overall: well-groomed, good eye contact 10/14/2015 None Full Exam - General 1994 Psychiatric speech Overall: normal quality, no aphasia 10/14/2015 None Full Exam - General 1994 Psychiatric speech Overall: normal quality, quantity, rate 10/14/2015 None Full Exam - General 1994 Neck inspection of neck Overall: normal size 10/14/2015 None Full Exam - General 1994 Neck inspection of neck Overall: normal appearance 10/14/2015 None Full Exam - General 1994 Constitutional general appearance Development: well developed 09/23/2015 None Full Exam - General 1994 Constitutional general appearance Development: appears stated age 0809/23/2015 None Full Exam - General 1994 Constitutional general appearance Hygiene/Attention to Grooming: good hygiene 09/23/2015 None Full Exam - General 1994 Eyes conjunctiva/eyelids Overall: conjunctiva clear 09/23/2015 None Full Exam - General 1994 Eyes conjunctiva/eyelids Overall: cornea clear 09/23/2015 None Full Exam - General 1994 Eyes conjunctiva/eyelids Overall: eyelids normal 09/23/2015 None Full Exam - General 1994 Eyes pupils and irises Overall: pupils equal, round, reactive to light and accomodation 09/23/2015 None Full Exam - General 1994 Ears/Nose/Throat otoscopic exam Overall: external auditory canals clear 09/23/2015 None Full Exam - General 1994 Ears/Nose/Throat otoscopic exam Overall: tympanic membranes clear 09/23/2015 None Full Exam - General 1994 Ears/Nose/Throat lips/teeth/gingiva Overall: benign lips 09/23/2015 None Full Exam - General 1994 Ears/Nose/Throat lips/teeth/gingiva Overall: normal dentition 09/23/2015 None Full Exam - General 1994 Ears/Nose/Throat oral cavity/pharynx/larynx Overall: oral mucosa clear 09/23/2015 None Full Exam - General 1994 Ears/Nose/Throat oral cavity/pharynx/larynx Overall: oropharyngeal mucosa clear 09/23/2015 None Full Exam - General 1994 Ears/Nose/Throat oral cavity/pharynx/larynx Overall: hypopharynx benign 09/23/2015 None Full Exam - General 1994 Ears/Nose/Throat oral cavity/pharynx/larynx Overall: no masses 09/23/2015 None Full Exam - General 1994 Respiratory auscultation Overall: breath sounds clear bilaterally 09/23/2015 None Full Exam - General 1994 Respiratory respiratory effort/rhythm Overall: no retractions 09/23/2015 None Full Exam - General 1994 Respiratory respiratory effort/rhythm Overall: normal rate 09/23/2015 None Full Exam - General 1994 Cardiovascular extremities Overall: no clubbing 09/23/2015 None Full Exam - General 1994 Cardiovascular auscultation of heart Overall: regular rate 09/23/2015 None Full Exam - General 1994 Cardiovascular auscultation of heart Overall: normal heart sounds 09/23/2015 None Full Exam - General 1994 Abdomen abdominal exam Overall: no tenderness 09/23/2015 None Full Exam - General 1994 Abdomen abdominal exam Overall: normal bowel sounds 09/23/2015 None Full Exam - General 1994 Lymphatic neck nodes Overall: anterior cervical chain benign 09/23/2015 None Full Exam - General 1994 Lymphatic neck nodes Overall: posterior cervical chain benign 09/23/2015 None Full Exam - General 1994 Musculoskeletal spine, ribs and pelvis Overall: spine benign 09/23/2015 None Full Exam - General 1994 Musculoskeletal spine, ribs and pelvis Overall: sacroiliac joint benign 09/23/2015 None Full Exam - General 1994 Musculoskeletal spine, ribs and pelvis Overall: good posture 09/23/2015 None Full Exam - General 1994 Musculoskeletal head and neck Overall: head atraumatic 09/23/2015 None Full Exam - General 1994 Musculoskeletal head and neck Overall: cervical spine benign 09/23/2015 None Full Exam - General 1994 Integument inspection of skin Overall: few scattered moles, no gross abnormalities 09/23/2015 None Full Exam - General 1994 Neurologic deep tendon reflexes Overall: deep tendon reflexes intact 09/23/2015 None Full Exam - General 1994 Neurologic cranial nerves Overall: crainial nerves 2 - 12 grossly intact 09/23/2015 None Full Exam - General 1994 Psychiatric orientation/consciousness Overall: oriented to person, place and time 09/23/2015 None Full Exam - General 1994 Psychiatric mood and affect Overall: normal mood and affect 09/23/2015 None Full Exam - General 1994 Constitutional general appearance Development: well developed 06/13/2015 None Full Exam - General 1994 Constitutional general appearance Development: appears stated age 0406/13/2015 None Full Exam - General 1994 Constitutional general appearance Hygiene/Attention to Grooming: good hygiene 06/13/2015 None Full Exam - General 1994 Eyes conjunctiva/eyelids Overall: conjunctiva clear 06/13/2015 None Full Exam - General 1994 Eyes conjunctiva/eyelids Overall: cornea clear 06/13/2015 None Full Exam - General 1994 Eyes conjunctiva/eyelids Overall: eyelids normal 06/13/2015 None Full Exam - General 1994 Eyes pupils and irises Overall: pupils equal, round, reactive to light and accomodation 06/13/2015 None Full Exam - General 1994 Ears/Nose/Throat otoscopic exam Overall: external auditory canals clear 06/13/2015 None Full Exam - General 1994 Ears/Nose/Throat otoscopic exam Overall: tympanic membranes clear 06/13/2015 None Full Exam - General 1994 Ears/Nose/Throat lips/teeth/gingiva Overall: benign lips 06/13/2015 None Full Exam - General 1994 Ears/Nose/Throat lips/teeth/gingiva Overall: normal dentition 06/13/2015 None Full Exam - General 1994 Ears/Nose/Throat oral cavity/pharynx/larynx Overall: oral mucosa clear 06/13/2015 None Full Exam - General 1994 Ears/Nose/Throat oral cavity/pharynx/larynx Overall: oropharyngeal mucosa clear 06/13/2015 None Full Exam - General 1994 Ears/Nose/Throat oral cavity/pharynx/larynx Overall: hypopharynx benign 06/13/2015 None Full Exam - General 1994 Ears/Nose/Throat oral cavity/pharynx/larynx Overall: no masses 06/13/2015 None Full Exam - General 1994 Respiratory auscultation Overall: breath sounds clear bilaterally 06/13/2015 None Full Exam - General 1994 Respiratory respiratory effort/rhythm Overall: no retractions 06/13/2015 None Full Exam - General 1994 Respiratory respiratory effort/rhythm Overall: normal rate 06/13/2015 None Full Exam - General 1994 Cardiovascular extremities Overall: no clubbing 06/13/2015 None Full Exam - General 1994 Cardiovascular auscultation of heart Overall: regular rate 06/13/2015 None Full Exam - General 1994 Cardiovascular auscultation of heart Overall: normal heart sounds 06/13/2015 None Full Exam - General 1994 Abdomen abdominal exam Overall: no tenderness 06/13/2015 None Full Exam - General 1994 Abdomen abdominal exam Overall: normal bowel sounds 06/13/2015 None Full Exam - General 1994 Lymphatic neck nodes Overall: anterior cervical chain benign 06/13/2015 None Full Exam - General 1994 Lymphatic neck nodes Overall: posterior cervical chain benign 06/13/2015 None Full Exam - General 1994 Musculoskeletal spine, ribs and pelvis Overall: spine benign 06/13/2015 None Full Exam - General 1994 Musculoskeletal spine, ribs and pelvis Overall: sacroiliac joint benign 06/13/2015 None Full Exam - General 1994 Musculoskeletal spine, ribs and pelvis Overall: good posture 06/13/2015 None Full Exam - General 1994 Musculoskeletal head and neck Overall: head atraumatic 06/13/2015 None Full Exam - General 1994 Musculoskeletal head and neck Overall: cervical spine benign 06/13/2015 None Full Exam - General 1994 Integument inspection of skin Overall: few scattered moles, no gross abnormalities 06/13/2015 None Full Exam - General 1994 Neurologic deep tendon reflexes Overall: deep tendon reflexes intact 06/13/2015 None Full Exam - General 1994 Neurologic cranial nerves Overall: crainial nerves 2 - 12 grossly intact 06/13/2015 None Full Exam - General 1994 Psychiatric orientation/consciousness Overall: oriented to person, place and time 06/13/2015 None Full Exam - General 1994 Psychiatric mood and affect Overall: normal mood and affect 06/13/2015 None Full Exam - General 1994 Constitutional general appearance Development: well developed 05/21/2015 None Full Exam - General 1994 Constitutional general appearance Development: appears stated age 0305/21/2015 None Full Exam - General 1994 Constitutional general appearance Hygiene/Attention to Grooming: good hygiene 05/21/2015 None Full Exam - General 1994 Eyes conjunctiva/eyelids Overall: conjunctiva clear 05/21/2015 None Full Exam - General 1994 Eyes conjunctiva/eyelids Overall: cornea clear 05/21/2015 None Full Exam - General 1994 Eyes conjunctiva/eyelids Overall: eyelids normal 05/21/2015 None Full Exam - General 1994 Eyes pupils and irises Overall: pupils equal, round, reactive to light and accomodation 05/21/2015 None Full Exam - General 1994 Ears/Nose/Throat lips/teeth/gingiva Overall: benign lips 05/21/2015 None Full Exam - General 1994 Ears/Nose/Throat lips/teeth/gingiva Overall: normal dentition 05/21/2015 None Full Exam - General 1994 Ears/Nose/Throat oral cavity/pharynx/larynx Overall: oral mucosa clear 05/21/2015 None Full Exam - General 1994 Respiratory auscultation Overall: breath sounds clear bilaterally 05/21/2015 None Full Exam - General 1994 Respiratory respiratory effort/rhythm Overall: no retractions 05/21/2015 None Full Exam - General 1994 Respiratory respiratory effort/rhythm Overall: normal rate 05/21/2015 None Full Exam - General 1994 Cardiovascular extremities Overall: no clubbing 05/21/2015 None Full Exam - General 1994 Cardiovascular auscultation of heart Overall: regular rate 05/21/2015 None Full Exam - General 1994 Cardiovascular auscultation of heart Overall: normal heart sounds 05/21/2015 None Full Exam - General 1994 Abdomen abdominal exam Overall: no tenderness 05/21/2015 None Full Exam - General 1994 Abdomen abdominal exam Overall: normal bowel sounds 05/21/2015 None Full Exam - General 1994 Musculoskeletal spine, ribs and pelvis Overall: good posture 05/21/2015 None Full Exam - General 1994 Musculoskeletal head and neck Overall: head atraumatic 05/21/2015 None Full Exam - General 1994 Neurologic cranial nerves Overall: crainial nerves 2 - 12 grossly intact 05/21/2015 None Full Exam - General 1994 Psychiatric orientation/consciousness Overall: oriented to person, place and time 05/21/2015 None Full Exam - General 1994 Psychiatric mood and affect Overall: normal mood and affect 05/21/2015 None Full Exam - General 1994 Integument inspection of skin Overall: no rash, lesions 05/21/2015 None Full Exam - General 1994 Constitutional general appearance Development: well developed 04/24/2015 None Full Exam - General 1994 Constitutional general appearance Development: appears stated age 0304/24/2015 None Full Exam - General 1994 Constitutional general appearance Hygiene/Attention to Grooming: good hygiene 04/24/2015 None Full Exam - General 1994 Eyes conjunctiva/eyelids Overall: conjunctiva clear 04/24/2015 None Full Exam - General 1994 Eyes conjunctiva/eyelids Overall: cornea clear 04/24/2015 None Full Exam - General 1994 Eyes conjunctiva/eyelids Overall: eyelids normal 04/24/2015 None Full Exam - General 1994 Eyes pupils and irises Overall: pupils equal, round, reactive to light and accomodation 04/24/2015 None Full Exam - General 1994 Ears/Nose/Throat otoscopic exam Overall: external auditory canals clear 04/24/2015 None Full Exam - General 1994 Ears/Nose/Throat otoscopic exam Overall: tympanic membranes clear 04/24/2015 None Full Exam - General 1994 Ears/Nose/Throat lips/teeth/gingiva Overall: benign lips 04/24/2015 None Full Exam - General 1994 Ears/Nose/Throat lips/teeth/gingiva Overall: normal dentition 04/24/2015 None Full Exam - General 1994 Ears/Nose/Throat oral cavity/pharynx/larynx Overall: oral mucosa clear 04/24/2015 None Full Exam - General 1994 Ears/Nose/Throat oral cavity/pharynx/larynx Overall: oropharyngeal mucosa clear 04/24/2015 None Full Exam - General 1994 Ears/Nose/Throat oral cavity/pharynx/larynx Overall: hypopharynx benign 04/24/2015 None Full Exam - General 1994 Ears/Nose/Throat oral cavity/pharynx/larynx Overall: no masses 04/24/2015 None Full Exam - General 1994 Respiratory auscultation Overall: breath sounds clear bilaterally 04/24/2015 None Full Exam - General 1994 Respiratory respiratory effort/rhythm Overall: no retractions 04/24/2015 None Full Exam - General 1994 Respiratory respiratory effort/rhythm Overall: normal rate 04/24/2015 None Full Exam - General 1994 Cardiovascular extremities Overall: no clubbing 04/24/2015 None Full Exam - General 1994 Cardiovascular auscultation of heart Overall: regular rate 04/24/2015 None Full Exam - General 1994 Cardiovascular auscultation of heart Overall: normal heart sounds 04/24/2015 None Full Exam - General 1994 Abdomen abdominal exam Overall: no tenderness 04/24/2015 None Full Exam - General 1994 Abdomen abdominal exam Overall: normal bowel sounds 04/24/2015 None Full Exam - General 1994 Lymphatic neck nodes Overall: anterior cervical chain benign 04/24/2015 None Full Exam - General 1994 Lymphatic neck nodes Overall: posterior cervical chain benign 04/24/2015 None Full Exam - General 1994 Musculoskeletal spine, ribs and pelvis Overall: spine benign 04/24/2015 None Full Exam - General 1994 Musculoskeletal spine, ribs and pelvis Overall: sacroiliac joint benign 04/24/2015 None Full Exam - General 1994 Musculoskeletal spine, ribs and pelvis Overall: good posture 04/24/2015 None Full Exam - General 1994 Musculoskeletal head and neck Overall: head atraumatic 04/24/2015 None Full Exam - General 1994 Musculoskeletal head and neck Overall: cervical spine benign 04/24/2015 None Full Exam - General 1994 Integument inspection of skin Overall: few scattered moles, no gross abnormalities 04/24/2015 None Full Exam - General 1994 Neurologic deep tendon reflexes Overall: deep tendon reflexes intact 04/24/2015 None Full Exam - General 1994 Neurologic cranial nerves Overall: crainial nerves 2 - 12 grossly intact 04/24/2015 None Full Exam - General 1994 Psychiatric orientation/consciousness Overall: oriented to person, place and time 04/24/2015 None Full Exam - General 1994 Psychiatric mood and affect Overall: normal mood and affect 04/24/2015 None Procedures Procedure Codes Date URINALYSIS NONAUTO W/O SCOPE CPT-4: 73598 02/10/2016 URINALYSIS NONAUTO W/O SCOPE CPT-4: 72659 09/08/2015 Vital Signs Date Vital 09/08/2018 Blood Pressure 1: 142/98 Code: 8480-6 BMI: 28.7 Code: 36371-0 Heart Rate 1: 60 bpm Height: 5'2" SpO2: 98% Weight: 157 lbs 08/15/2018 Blood Pressure 1: 124/68 Code: 8480-6 BMI: 30.4 Code: 76515-0 Heart Rate 1: 73 bpm Height: 5'2" SpO2: 97% Weight: 166 lbs 08/02/2018 Blood Pressure 1: 120/64 Code: 8480-6 BMI: 30.4 Code: 82880-7 Heart Rate 1: 65 bpm Height: 5'2" SpO2: 98% Weight: 166 lbs 05/26/2016 Blood Pressure 1: 128/84 Code: 8480-6 BMI: 29.1 Code: 62474-0 Heart Rate 1: 73 bpm Height: 5'2" SpO2: 98% Weight: 159 lbs 03/04/2016 Blood Pressure 1: 135/80 Code: 8480-6 Heart Rate 1: 112 bpm SpO2: 98% Temperature: 37.2 (C) / 98.9 (F) Weight: 163 lbs 02/10/2016 Blood Pressure 1: 124/86 Code: 8480-6 BMI: 30.0 Code: 88545-2 Heart Rate 1: 94 bpm Height: 5'2" SpO2: 97% Weight: 164 lbs 01/19/2016 Blood Pressure 1: 122/78 Code: 8480-6 Heart Rate 1: 72 bpm SpO2: 97% Temperature: 37.1 (C) / 98.8 (F) Weight: 163 lbs 11/17/2015 Blood Pressure 1: 136/90 Code: 8480-6 BMI: 29.3 Code: 65961-6 Heart Rate 1: 77 bpm Height: 5'2" SpO2: 98% Weight: 160 lbs 10/14/2015 Blood Pressure 1: 148/86 Code: 8480-6 BMI: 29.1 Code: 84831-1 Heart Rate 1: 89 bpm Height: 5'2" SpO2: 99% Weight: 159 lbs 09/23/2015 Blood Pressure 1: 172/100 Code: 8480-6 Blood Pressure 1: 152/90 Code: 8480-6 BMI: 28.3 Code: 90253-1 Heart Rate 1: 84 bpm Height: 5'2" SpO2: 99% Weight: 155 lbs 06/13/2015 Blood Pressure 1: 130/92 Code: 8480-6 Blood Pressure 1: 130/78 Code: 8480-6 BMI: 26.7 Code: 67029-8 Heart Rate 1: 71 bpm Height: 5'2" SpO2: 98% Weight: 146 lbs 05/21/2015 Blood Pressure 1: 128/80 Code: 8480-6 BMI: 26.2 Code: 72420-1 Heart Rate 1: 73 bpm Height: 5'2" SpO2: 99% Weight: 143 lbs 04/24/2015 Blood Pressure 1: 118/80 Code: 8480-6 BMI: 26.2 Code: 50621-1 Heart Rate 1: 66 bpm Height: 5'2" SpO2: 96% Weight: 143 lbs Functional Status No Functional Status data History of Present Illness Symptom Name Status Result Effective Date Notes _ pain 09/08/2018 None _ Other: headache 09/08/2018 None Quality acute 09/08/2018 None Pertinent Findings Denies fever 09/08/2018 None Additional Comments medication use 08/15/2018 None Location oral intake 08/15/2018 None Quality constant 08/02/2018 None Quality obsessive-compulsive 08/02/2018 None Quality panic attacks 08/02/2018 None Quality worsening 08/02/2018 None Onset and Resolution ongoing 08/02/2018 None Frequency of Episodes daily 08/02/2018 None Onset of Symptom 2 months ago 08/02/2018 None diarrhea Quality constant 05/26/2016 None diarrhea Quality loose 05/26/2016 None diarrhea Onset and Resolution sudden in onset 05/26/2016 None diarrhea Onset of Symptom 2 weeks ago 05/26/2016 None diarrhea Pertinent Findings fecal urgency 05/26/2016 None diarrhea Pertinent Findings cramping 05/26/2016 None abdominal pain Location in the suprapubic area 05/26/2016 None abdominal pain Location in the periumbilical area 05/26/2016 None abdominal pain Quality aching 05/26/2016 None abdominal pain Quality cramping 05/26/2016 None abdominal pain Quality intermittent 05/26/2016 None cough Location in the throat 03/04/2016 None cough Quality acute 03/04/2016 None malaise Quality acute 03/04/2016 None malaise Onset and Resolution sudden in onset 03/04/2016 None malaise Pertinent Findings Denies dyspnea 03/04/2016 None malaise Pertinent Findings fever 03/04/2016 None malaise Pertinent Findings chills 03/04/2016 None malaise Pertinent Findings cough 03/04/2016 None nausea Onset of Symptom 2-3 weeks ago 02/10/2016 None nausea Frequency of Episodes daily 02/10/2016 None nausea Pertinent Findings Denies dyspnea 02/10/2016 None nausea Pertinent Findings Denies fever 02/10/2016 None nausea Pertinent Findings Denies gastroenteritis 02/10/2016 None nausea Pertinent Findings Denies heartburn 02/10/2016 None nausea Pertinent Findings Denies weight loss 02/10/2016 None nausea Severity mild 02/10/2016 None nausea Triggers no known associated factors 02/10/2016 None nausea Quality acute 02/10/2016 None nausea Onset and Resolution ongoing 02/10/2016 None cough Location in the throat 01/19/2016 None cough Quality productive 01/19/2016 None cough Onset and Resolution sudden in onset 01/19/2016 None cough Onset of Symptom 2 weeks ago 01/19/2016 None cough Frequency of Episodes daily 01/19/2016 None cough Triggers post nasal drip 01/19/2016 None cough Pertinent Findings chest discomfort 01/19/2016 None cough Pertinent Findings Denies dyspnea 01/19/2016 None cough Pertinent Findings Denies fever 01/19/2016 None medication follow up Additional Comments medication: bupropion 11/17/2015 None medication follow up Location oral intake 11/17/2015 None weight gain/obesity Location globally 10/14/2015 None weight gain/obesity Onset and Resolution gradual in onset 10/14/2015 None weight gain/obesity Onset of Symptom 6 months ago 10/14/2015 None dysuria Quality constant 09/23/2015 None dysuria Quality dull 09/23/2015 None dysuria Quality aching 09/23/2015 None dysuria Onset and Resolution sudden in onset 09/23/2015 None dysuria Onset of Symptom 3 days ago 09/23/2015 None dysuria Triggers no known associated factors 09/23/2015 None dysuria Pertinent Findings bladder pain 09/23/2015 None Hospital Follow Up _ Other: kidney stones UTI 09/23/2015 None Hospital Follow Up Onset and Resolution sudden in onset 09/23/2015 None Hospital Follow Up Pertinent Findings pain 09/23/2015 None constipation Quality less than 1 stool per week 06/13/2015 None constipation Quality hard 06/13/2015 None constipation Onset and Resolution gradual in onset 06/13/2015 None constipation Onset of Symptom 1 weeks ago 06/13/2015 None constipation Pertinent Findings bloating 06/13/2015 None constipation Pertinent Findings nausea 06/13/2015 None constipation Severity moderate 06/13/2015 None constipation Frequency of Episodes increasing 06/13/2015 None constipation Length of Episodes _ days 06/13/2015 None constipation Length of Episodes _ weeks 06/13/2015 None constipation Significant Medications over the counter preparations 06/13/2015 None constipation Alleviating Factors medication 06/13/2015 None constipation Exacerbating Factors diet changes 06/13/2015 None urinary urgency Onset and Resolution sudden in onset 05/21/2015 None urinary urgency Quality acute 05/21/2015 None urinary urgency Pertinent Findings back pain 05/21/2015 None urinary urgency Pertinent Findings Denies fever 05/21/2015 None headache Onset and Resolution ongoing 04/24/2015 None headache Quality intermittent 04/24/2015 None headache Frequency of Episodes weekly 04/24/2015 None headache Onset of Symptom 3 months ago 04/24/2015 None headache Alleviating Factors medication 04/24/2015 ibuprofen/ tension-headache dizziness Quality acute 04/24/2015 - she states that she had iron checked prior to the blood drive and was told that her iron was too low, and then they checked her other finger and told her that her iron was "not as low" and that she could donate blood if her wanted to, so she did donate blood. dizziness Onset and Resolution sudden in onset 04/24/2015 None dizziness Onset of Symptom 7 days ago 04/24/2015 following a blood drive at her school - she states that she has donated blood 4 times - but this time she felt more dizzy and weak and throuht the week this week she has noticed more spinning episodes and a sharp headache pain above her right eye when she goes from sitting to standing. She states that she has taken naps but does not feel rested after napping. muscle weakness Onset and Resolution sudden in onset 04/24/2015 None muscle weakness Onset of Symptom 7 days ago 04/24/2015 None fatigue Onset and Resolution sudden in onset 04/24/2015 None fatigue Onset of Symptom 7 days ago 04/24/2015 None Advance Directives No Advance Directive data Encounters Encounter Performer Location Codes Date 92735 EST. PATIENT, LEVEL III Diagnosis: Headache[ICD10: R51] Diagnosis: Other malaise[ICD10: R53.81] Diagnosis: Other fatigue[ICD10: R53.83] Niya Kearns MD, [facility] CPT-4: 40612 09/08/2018 16142 EST. PATIENT, LEVEL III Diagnosis: Generalized anxiety disorder[ICD10: F41.1] Diagnosis: Major depressive disorder, single episode, moderate[ICD10: F32.1] Niya Kearns MD, [facility] CPT-4: 66647 08/15/2018 73130 EST. PATIENT, LEVEL III Diagnosis: Generalized anxiety disorder[ICD10: F41.1] Diagnosis: Major depressive disorder, single episode, moderate[ICD10: F32.1] Niya Kearns MD, [facility] CPT-4: 63765 08/02/2018 58788 EST. PATIENT, LEVEL IV Diagnosis: Other malaise[ICD10: R53.81] Diagnosis: Other specified intestinal infections[ICD10: A08.8] Diagnosis: Gastro-esophageal reflux disease without esophagitis[ICD10: K21.9] Niya Kearns MD, [facility] CPT-4: 75279 05/26/2016 88336 EST. PATIENT, LEVEL III Diagnosis: Cough[ICD10: R05] Diagnosis: Other malaise[ICD10: R53.81] Diagnosis: Influenza due to identified novel influenza A virus with other respiratory manifestations[ICD10: J09.X2] Niya Kearns MD, [facility] CPT-4: 48713 03/04/2016 ([id number]) [id number] EST. PATIENT, LEVEL III Diagnosis: Dysuria[ICD10: R30.0] Diagnosis: Abnormal weight gain[ICD10: R63.5] Diagnosis: Irregular menstruation, unspecified[ICD10: N92.6] Krista Kearns MD, [facility] CPT-4: 52913 02/10/2016 ([id number]) 56437 EST. PATIENT, LEVEL III Diagnosis: Acute recurrent maxillary sinusitis[ICD10: J01.01] Krista Kearns MD, [facility] CPT-4: 25861 01/19/2016 [id number] EST. PATIENT, LEVEL III Diagnosis: Generalized anxiety disorder[ICD10: F41.1] Diagnosis: Major depressive disorder, single episode, mild[ICD10: F32.0] Niya Kearns MD, [facility] CPT-4: 76450 11/17/2015 56985 EST. PATIENT, LEVEL III Diagnosis: Other fatigue[ICD10: R53.83] Diagnosis: Abnormal weight gain[ICD10: R63.5] Diagnosis: Other specified anemias[ICD10: D64.89] Niya Kearns MD, [facility] CPT- 4: 10652 10/14/2015 ([id number]) 60722 EST. PATIENT, LEVEL III Diagnosis: Urinary tract infection, site not specified[ICD10: N39.0] Krista Kearns MD, [facility] CPT-4: 94937 09/23/2015 ([id number]) 62493 EST. PATIENT, LEVEL III Diagnosis: Slow transit constipation[ICD10: K59.01] Krista Kearns MD, [facility] CPT-4: 44387 06/13/2015 [id number] EST. PATIENT, LEVEL III Diagnosis: Urinary tract infection, site not specified[ICD10: N39.0] Niya Kearns MD, [facility] CPT-4: 06263 05/21/2015 ([id number]) PREV VISIT NEW AGE 12-17 Diagnosis: Encounter for routine child health examination with abnormal findings[ICD10: Z00.121] Malathi Kearns MD, [facility] CPT-4: 93683 04/24/2015 Plan of Care Planned Activity Notes Codes Status Date Visit Plan: Headaches, fatigue, malaise - will check labs and MRI for increasing frequency and intensity of migraine headaches - pt is to notify clinic if symptoms do not improve, if they worsen, or with any changes, questions, or concerns. 09/08/2018 Appointment: Niya Riojas WPtel: [address] [place], [place] [id number] (30 min) Complex 09/08/2018 Patient Education: Patient Medication Summary Completed 09/08/2018 Appointment: Niya Riojas WPtel: [address] [place], [place] [id number] (30 min) Complex 09/06/2018 Visit Plan: Chronic Depression and anxiety - the pt has symptoms of chronic anxiety and depression that have been fairly well controlled since the last office visit. The pt has expected periods of exacerbation with abatement of the symptoms with change in situational exposure. No change in current medications. 08/15/2018 Appointment: Niya Riojas WPtel: [phone] [facility] (30 min) Complex 08/15/2018 Patient Education: Patient Medication Summary Completed 08/15/2018 Visit Plan: Anxiety - the patient has uncontrolled anxiety and will benefit from an SSRI on a daily basis to attempt control of the symptoms of anxiety (tachycardia, overwhelming sensations, stress, insomnia, etc). Pt is aware of the risks and benefits of treatment with the above medications. Depression - uncontrolled - Pt has been counseled about the diagnosis of depression, the potential causes, and risks associated with the diagnosis. The pt denies suicidal ideation, or plans. The patient has been counseled about treatment options, and understands the risks associated with treatment of depression, as well as the risks associated with NOT treating the depression. I believe the pt will benefit from medical intervention and an antidepressant has been appropriately prescribed for this patient. 08/02/2018 Appointment: [id number] ([facility] 08/02/2018 Patient Education: Patient Medication Summary Completed 08/02/2018 Patient Education: Depression Completed 08/02/2018 Visit Plan: Esophageal Reflux - the patient has been counseled against excessive intake of caffeine, spicy foods, peppermint, and cinnamon - all of which can exacerbate esophageal reflux. The patient is to take med ications as prescribed and call the office if the symptoms are not improving. Diarrhea - recommended bland diet, low fat diet, start on probiotic, and rehydrate with gatorade-like product. Pt to call if feeling worse, diarrhea becomes bloody, or does not improve with above recommendations. Pt to call for acute worsening of stomach upset or stomach pain. Gastroenteritis - discussed need to stay away from milk products while acutely ill with diarrhea and nausea and emesis as it may worsen the symptoms. Liquids initially until the nausea improves, then recommend to advance to bland diet for 1 day, then advance as tolerated. Call if symptoms not improved. 05/26/2016 Appointment: Niya Riojas WPtel: Formerly named [facility] (15 min) Moderate 05/26/2016 Patient Education: Patient Medication Summary Completed 05/26/2016 Patient Education: Obesity Completed 05/26/2016 Visit Plan: Influenza - pt started on tamiflu - pt to start on anti-inflammatories, tylenol and monitor symptoms. Pt to call if not improving. Pt to alert any close contacts as to illness. 03/04/2016 Appointment: Niya Riojas WPtel: Formerly named [facility] (30 min) Complex 03/04/2016 Patient Education: Patient Medication Summary Completed 03/04/2016 Visit Plan: UTI - pt with positive urinalysis - culture sent if appropriate. Antibiotic electronically prescribed to pt's pharmacy of choice. Pt to call if symptoms do not improve. pelvic pain-abnormal periods-p regnancy negative-schedule pelvic sono 02/10/2016 Patient Education: Patient Medication Summary Completed 02/10/2016 Patient Education: Obesity Completed 02/10/2016 Care Plan: Urine Culture Ordered 02/10/2016 Care Plan: Urine Bhcg Ordered 02/10/2016 Visit Plan: Sinusitis - Pt has acute infection - pain in face, maxillary region, Pt informed to use decongestant, RX given to patient, sinus rinses also recommended. Call if symptoms do not show improvement. 01/19/2016 Appointment: Krista Tee WPtel: Formerly named [id number] [place] (15 min) Moderate 01/19/2016 Patient Education: Patient Medication Summary Completed 01/19/2016 Appointment: Niya Riojas WPtel: Formerly named [facility] (30 min) Complex 12/15/2015 Visit Plan: Anxiety - the patient has uncontrolled anxiety and will benefit from an SSRI on a daily basis to attempt control of the symptoms of anxiety (tachycardia, overwhelming sensations, stress, insomnia, etc). Pt is aware of the risks and benefits of treatment with the above medications. Depression - uncontrolled - Pt has been counseled about the diagnosis of depression, the potential causes, and risks associated with the diagnosis. The pt denies suicidal ideation, or plans. The patient has been counseled about treatment options, and understands the risks associated with treatment of depression, as well as the risks associated with NOT treating the depression. I believe the pt will benefit from medical intervention and an antidepressant has been appropriately prescribed for this patient. 11/17/2015 Appointment: Niya Riojas WPtel: Formerly named [facility] [id number] ([facility] min) [facility] 11/17/2015 Patient Education: Patient Medication Summary Completed 11/17/2015 Patient Education: Obesity Completed 11/17/2015 Care Plan: BMI Above normal followup SELF-MGMT EDUC & TRAIN 1 PT Pending 10/21/2015 Visit Plan: Pt complains of weight gain and fatigue - will check labs, will treat pending results. Obesity - chronic issue with this patient. The pt has been counseled about diet changes, calorie restriction, and need to exercise. Pt will RTC in one month for weight check. 10/14/2015 Patient Education: Patient Medication Summary Completed 10/14/2015 Patient Education: Obesity Completed 10/14/2015 Visit Plan: UTI-finish abx and call if symptoms return 09/23/2015 Patient Education: Patient Medication Summary Completed 09/23/2015 Patient Education: Obesity Completed 09/23/2015 Appointment: Lab Draw 09/08/2015 Patient Education: Patient Medication Summary Completed 09/08/2015 Visit Plan: Constipation - uncontrolled - I have discussed with the patient the need for adequate fiber and water intake to facilitate soft, easily passed stools. The pt noted understanding of our conversation. The pt is to call if symptoms not improved on this regimen. Start miralax as directed-call if symptoms uncontrolled Iron deficiency anemia-hold iron for now due to constipation-will re-address in 1 month and restart when able. 06/13/2015 Patient Education: Patient Medication Summary Completed 06/13/2015 Visit Plan: UTI - flank pain/dysuria - UA culture sent if appropriate. Antibiotic electronically prescribed to pt's pharmacy of choice. Pt to call if symptoms do not improve. 05/21/2015 Appointment: (15 min) Moderate 05/21/2015 Patient Education: Patient Medication Summary Completed 05/21/2015 Visit Plan: Well Teen - Pt aware that unless they discussed things that are potentially harmful to themselves, or others, what they have told me will remain private unless the pt has given me permission to discuss these things with their parents. New pt with anemia- iron deficiency - check iron levels, and pt to start on iron supplementation. 04/24/2015 Appointment: Malathi Kearns WPtel: [address] [place], [place] [id number] New Patient 04/24/2015 Patient Education: Patient Medication Summary Completed 04/24/2015 Instructions Comment . Chronic Depression and anxiety - the pt has symptoms of chronic anxiety and depression that have been fairly well controlled since the last office visit. The pt has expected periods of exacerbation with abatement of the symptoms with change in situational exposure. No change in current medications. . Sinusitis - Pt has acute infection - pain in face, maxillary region, Pt informed to use decongestant, RX given to patient, sinus rinses also recommended. Call if symptoms do not show improvement. Probiotics 3 times a day for 2 days, then 2 times a day for 2 days, then daily as needed. Let me know if you are feeling more dehydrated we can send you for IV fluids if need be. Will schedule pulmonary function test avoid excessive intake of caffeine, spicy foods, peppermint, and cinnamon - all of which can exacerbate esophageal reflux. The patient is to take medications as prescribed and call the office if the symptoms are not improving. recommended bland diet, low fat diet, start on probiotic, and rehydrate with gatorade-like product. Call if feeling worse, diarrhea becomes bloody, or does not improve with above recommendations. Call for acute worsening of stomach upset or stomach pain. stay away from milk products while acutely ill with diarrhea and nausea and emesis as it may worsen the symptoms. Liquids initially until the nausea improves, then recommend to advance to bland diet for 1 day, then advance as tolerated. Call if symptoms not improved. . Esophageal Reflux - the patient has been counseled against excessive intake of caffeine, spicy foods, peppermint, and cinnamon - all of which can exacerbate esophageal reflux. The patient is to take medications as prescribed and call the office if the symptoms are not improving. Diarrhea - recommended bland diet, low fat diet, start on probiotic, and rehydrate with gatorade-like product. Pt to call if feeling worse, diarrhea becomes bloody, or does not improve with above recommendations. Pt to call for acute worsening of stomach upset or stomach pain. Gastroenteritis - discussed need to stay away from milk products while acutely ill with diarrhea and nausea and emesis as it may worsen the symptoms. Liquids initially until the nausea improves, then recommend to advance to bland diet for 1 day, then advance as tolerated. Call if symptoms not improved. . Headaches, fatigue, malaise - will check labs and MRI for increasing frequency and intensity of migraine headaches - pt is to notify clinic if symptoms do not improve, if they worsen, or with any changes, questions, or concerns. slow FE (slow release Iron supplement) - take twice daily - with orange juice. . Well Teen - Pt aware that unless they discussed things that are potentially harmful to themselves, or others, what they have told me will remain private unless the pt has given me permission to discuss these things with their parents. New pt with anemia- iron deficiency - check iron levels, and pt to start on iron supplementation. . UTI-finish abx and call if symptoms return . UTI - pt with positive urinalysis - culture sent if appropriate. Antibiotic electronically prescribed to pt's pharmacy of choice. Pt to call if symptoms do not improve. pelvic pain-abnormal periods- negative-schedule pelvic sono . Anxiety - the patient has uncontrolled anxiety and will benefit from an SSRI on a daily basis to attempt control of the symptoms of anxiety (tachycardia, overwhelming sensations, stress, insomnia, etc). Pt is aware of the risks and benefits of treatment with the above medications. Depression - uncontrolled - Pt has been counseled about the diagnosis of depression, the potential causes, and risks associated with the diagnosis. The pt denies suicidal ideation, or plans. The patient has been counseled about treatment options, and understands the risks associated with treatment of depression, as well as the risks associated with NOT treating the depression. I believe the pt will benefit from medical intervention and an antidepressant has been appropriately prescribed for this patient. cut out dairy add fresh fruits and veggies, increase fiber increase water intake start miralax 1 packet daily-decrease to every other day if you develop diarrhea . Constipation - uncontrolled - I have discussed with the patient the need for adequate fiber and water intake to facilitate soft, easily passed stools. The pt noted understanding of our conversation. The pt is to call if symptoms not improved on this regimen. Start miralax as directed-call if symptoms uncontrolled Iron deficiency anemia-hold iron for now due to constipation-will re-address in 1 month and restart when able. . UTI - flank pain/dysuria - UA culture sent if appropriate. Antibiotic electronically prescribed to pt's pharmacy of choice. Pt to call if symptoms do not improve. . Pt complains of weight gain and fatigue - will check labs, will treat pending results. Obesity - chronic issue with this patient. The pt has been counseled about diet changes, calorie restriction, and need to exercise. Pt will RTC in one month for weight check. . Anxiety - the patient has uncontrolled anxiety and will benefit from an SSRI on a daily basis to attempt control of the symptoms of anxiety (tachycardia, overwhelming sensations, stress, insomnia, etc). Pt is aware of the risks and benefits of treatment with the above medications. Depression - uncontrolled - Pt has been counseled about the diagnosis of depression, the potential causes, and risks associated with the diagnosis. The pt denies suicidal ideation, or plans. The patient has been counseled about treatment options, and understands the risks associated with treatment of depression, as well as the risks associated with NOT treating the depression. I believe the pt will benefit from medical intervention and an antidepressant has been appropriately prescribed for this patient. . Influenza - pt started on tamiflu - pt to start on anti-inflammatories, tylenol and monitor symptoms. Pt to call if not improving. Pt to alert any close contacts as to illness.
--- OUTSIDE RECORDS SUMMARY | 2018-09-18 02:30 | XMS REPORT | CCD ---
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 Name Role Phone PP Unavailable CCM Unavailable Summary Purpose Interface Exchange Insurance Providers Payer name Policy type / Coverage type Covered libertarian ID Effective Begin Date Effective End Date Blue Cross Blue [facility] Blue Cross/Blue Shield [id number] Unknown Family history Grandmother Diagnosis Age At Onset Colon cancer Unknown Social History Social History Element Codes Description Effective Dates Marital status Unknown Single 04/24/2015 Employment Unknown Student 04/24/[address]: 008152887 Never smoker 04/24/[address]: 299535399 Never drinks alcohol 04/24/2015 Allergies, Adverse Reactions, Alerts Substance Reaction Codes Entered Date Inactivated Date Status * NO KNOWN DRUG ALLERGIES Unknown 04/24/2015 No Inactive Date Active Past Medical History Illness Codes Condition Status Onset Date Resolved Date Generalized anxiety disorder ICD-9: 300.00 ICD-10: F41.1 Active 08/02/2018 Unknown Major depressive disorder, single episode, moderate ICD-9: 296.22 ICD-10: F32.1 Active 08/02/2018 Unknown Gastro-esophageal reflux disease without esophagitis ICD-9: 530.81 ICD-10: K21.9 Active 05/26/2016 Unknown Other malaise ICD-9: 780.79 ICD-10: R53.81 Active 03/03/2016 Unknown Other specified intestinal infections ICD-9: 009.0 [...] 296.21 ICD-10: F32.0 Active 11/16/2015 Unknown Other fatigue ICD-9: 780.79 ICD-10: R53.83 Active 10/13/2015 Unknown Other specified anemias ICD-9: 285.8 ICD-10: [...] Problems Condition Codes Effective Dates Condition Status Generalized anxiety disorder ICD-9: 300.00 ICD-10: F41.1 08/02/2018 Active Major depressive disorder, single episode, moderate ICD-9: 296.22 ICD-10: F32.1 08/02/2018 Active Gastro-esophageal reflux disease without esophagitis ICD-9: 530.81 ICD-10: K21.9 05/26/2016 Active Other malaise ICD-9: 780.79 ICD-10: R53.81 03/03/2016 Active Other specified intestinal infections ICD-9: 009.0 [...] ICD-9: 296.21 ICD-10: F32.0 11/16/2015 Active Other fatigue ICD-9: 780.79 ICD-10: R53.83 10/13/2015 Active Other specified anemias ICD-9: 285.8 ICD-10: [...] Start Date Stop Date Status Fill Instructions Maxalt-HUMAN RESOURCE INTERN 5 mg disintegrating tablet RxNorm: 192358 1 Tablet(s) PO at onset of migraine and may repeat in 1 hour if migraine is not treated 09/08/2018 No Stop Date Active nystatin 100,000 unit/mL oral suspension RxNorm: 946219 4 Milliliter(s) PO BID 09/08/2018 09/21/2018 Active nystatin 100,000 unit/mL oral suspension RxNorm: 305559 4 Milliliter(s) PO BID 09/08/2018 09/07/2018 Inactive buspirone 10 mg tablet RxNorm: 856012 1 Tablet(s) PO BID 08/15/2018 09/13/2018 Active buspirone 5 mg tablet RxNorm: 594122 1 Tablet(s) PO BID 08/02/2018 08/31/2018 Inactive Zofran 4 mg tablet RxNorm: 287294 1 Tablet(s) PO TID as needed nausea and vomitting 05/27/2016 05/31/2016 Inactive Zofran 4 mg tablet RxNorm: 524399 1 Tablet(s) PO TID as needed nausea and vomitting 05/26/2016 05/30/2016 Inactive Tamiflu 75 mg capsule RxNorm: 186900 1 Capsule(s) PO BID 03/04/2016 03/08/2016 Inactive Keflex 500 mg capsule RxNorm: 073066 1 Capsule(s) PO TID 02/10/2016 02/09/2016 Inactive Keflex 500 mg capsule RxNorm: 585013 1 Capsule(s) PO TID 02/10/2016 02/16/2016 Inactive Augmentin 875 mg-125 mg tablet RxNorm: 526837 1 Tablet(s) PO BID 01/19/2016 01/23/2016 Inactive TAKE PROBIOTIC WHILE ON ABX bupropion HCl 75 mg tablet RxNorm: 147441 1 Tablet(s) PO BID 11/17/2015 01/18/2016 Inactive bupropion HCl 75 mg tablet RxNorm: 701955 1 Tablet(s) PO BID 10/17/2015 10/16/2015 Inactive bupropion HCl 75 mg tablet RxNorm: 976508 1 Tablet(s) PO BID 10/17/2015 11/15/2015 Inactive Bactrim DS 800 mg-160 mg tablet RxNorm: 093283 1 Tablet(s) PO BID 05/21/2015 05/27/2015 Inactive Maxalt-HUMAN RESOURCE INTERN 5 mg disintegrating tablet RxNorm: 663716 1 Tablet(s) PO at onset of migraine and may repeat in 1 hour if migraine is not treated 04/24/2015 09/07/2018 Inactive Microgestin 1.5/30 (21) 1.5 mg-30 mcg tablet RxNorm: 822184 1 Tablet(s) PO daily No Start Date Active Zofran 4 mg tablet RxNorm: 175567 1 Tablet(s) PO TID as needed nausea and vomitting No Start Date 05/26/2016 Inactive Medication Administered No Medication Administered data Immunizations No Immunization data Assessments Condition Codes Effective Dates Major depressive disorder, single episode, moderate ICD-10: F32.1 ICD-9: 296.22 08/15/2018 Generalized anxiety disorder ICD-10: F41.1 ICD-9: 300.00 08/15/2018 Other malaise ICD-10: R53.81 ICD-9: 780.79 05/26/2016 Gastro-esophageal reflux disease without esophagitis ICD-10: K21.9 [...] specified anemias ICD-10: D64.89 ICD-9: 285.8 10/14/2015 Other fatigue ICD-10: R53.83 ICD-9: 780.79 10/14/2015 Urinary tract infection, site not specified [...] Visit Reason For Visit Effective Dates Notes medication follow up 08/15/2018 anxiety 08/02/2018 diarrhea 05/26/2016 cough 03/04/2016 nausea 02/10/2016 cough 01/19/2016 medication follow up 11/17/2015 weight gain/obesity 10/14/2015 dysuria 09/23/2015 constipation 06/13/2015 urinary urgency 05/21/2015 headache 04/24/2015 Results Observation Observation Code Item Item Code Result Date C A/B FLU 9278512 Influenza A Scr Negative 05/26/2016 C A/B FLU 5537408 Influenza B Scr Negative 05/26/2016 C A/B FLU 6404366 Influenza A Scr Positive 03/04/2016 C A/B FLU 5313347 Influenza B Scr Negative 03/04/2016 Culture Urine [id number] URINE CULTURE SEE NOTES 02/13/2016 Culture Urine [id number] Continued Results 02/13/2016 Urine Culture Ucult Complete >100,000 col/ml aerobic growth sent to ref lab 02/11/2016 Urine Bhcg Onb990 Urine BHCG Negative 02/10/2016 Cbc With Differential [...] 28.9 pg 10/15/2015 Cbc With Differential Ord2 Towner% 11.3 % 10/15/2015 Cbc With Differential Ord2 [...] 2.35 K/ul 10/15/2015 Cbc With Differential Ord2 Towner ABS# 0.8 K/ul 10/15/2015 Cbc With Differential Ord2 Eos ABS# 0.1 K/ul 10/15/2015 Cbc With Differential Ord2 Baso ABS# 0.1 K/ul 10/15/2015 Free T4 Foa786 FREE T4 0.71 ng/dL 10/15/2015 Comp Metabolic Duw024 NA 135 mEq/L 10/15/2015 Comp Metabolic Quf852 K 5.4 mEq/L 10/15/2015 Comp Metabolic Hyo354 CL 104 mEq/L 10/15/2015 Comp Metabolic Ijs974 CO2 24.0 mEq/L 10/15/2015 Comp Metabolic Qte257 ANION GAP 12 10/15/2015 Comp Metabolic Spw726 GLUCOSE 78 mg/dL 10/15/2015 Comp Metabolic Acx104 Creat 0.5 mg/dL 10/15/2015 Comp Metabolic Npw307 eGFR 156 ml/min/1.73m2 10/15/2015 Comp Metabolic Lwm768 BUN 11 mg/dL 10/15/2015 Comp Metabolic Cao001 B/C Ratio 20.4 Ratio 10/15/2015 Comp Metabolic Wyw206 CALCIUM 9.6 mg/dL 10/15/2015 Comp Metabolic Lwm815 ALK PHOS 60 U/L 10/15/2015 Comp Metabolic Kmu059 AST(SGOT) 16 U/L 10/15/2015 Comp Metabolic Qcd055 ALT(SGPT) 13 U/L 10/15/2015 Comp Metabolic Ary197 BILI T 0.2 mg/dL 10/15/2015 Comp Metabolic Yty525 ALBUMIN 4.3 g/dL 10/15/2015 Comp Metabolic Sax079 TPRO 7.6 g/dL 10/15/2015 Comp Metabolic Qut347 GLOB 3.3 g/dL 10/15/2015 Comp Metabolic Rxa790 A/G Ratio 1.3 Ratio 10/15/2015 Comp Metabolic Mhe211 Osmo 268 mOsmo 10/15/2015 Tsh Ord6 hTSH [...] 27.6 pg 08/11/2015 Cbc With Differential Ord2 Towner% 10.4 % 08/11/2015 Cbc With Differential Ord2 [...] 2.11 K/ul 08/11/2015 Cbc With Differential Ord2 Towner ABS# 0.6 K/ul 08/11/2015 Cbc With Differential [...] 28.6 pg 04/24/2015 Cbc With Differential Ord2 Towner% 9.7 % 04/24/2015 Cbc With Differential Ord2 [...] 2.05 K/ul 04/24/2015 Cbc With Differential Ord2 Towner ABS# 0.6 K/ul 04/24/2015 Cbc With Differential Ord2 Eos ABS# 0.1 K/ul 04/24/2015 Cbc With Differential Ord2 Baso ABS# 0.0 K/ul 04/24/2015 Cbc With Differential Ord2 New Analyzer Notice Please note new ref ranges starting 03-05-2015 due to implemntation of new five part differential hematolgy analyzer. 04/24/2015 Review of Systems System Result Effective Dates Constitutional No recent illness 08/15/2018 Constitutional No [...] Codes Date URINALYSIS NONAUTO W/O SCOPE CPT-4: 00293 02/10/2016 URINALYSIS NONAUTO W/O SCOPE CPT-4: 95490 09/08/2015 Vital Signs Date Vital 08/15/2018 Blood Pressure 1: 124/68 Code: 8480-6 BMI: 30.4 Code: 39238-6 Heart Rate 1: 73 bpm Height: 5'2" SpO2: 97% Weight: 166 lbs 08/02/2018 Blood Pressure 1: 120/64 Code: 8480-6 BMI: 30.4 Code: 57113-1 Heart Rate 1: 65 bpm Height: 5'2" SpO2: 98% Weight: 166 lbs 05/26/2016 Blood Pressure 1: 128/84 Code: 8480-6 BMI: 29.1 Code: 93506-1 Heart Rate 1: 73 bpm Height: 5'2" SpO2: 98% Weight: 159 lbs 03/04/2016 Blood Pressure 1: 135/80 Code: 8480-6 Heart Rate 1: 112 bpm SpO2: 98% Temperature: 37.2 (C) / 98.9 (F) Weight: 163 lbs 02/10/2016 Blood Pressure 1: 124/86 Code: 8480-6 BMI: 30.0 Code: 64591-4 Heart Rate 1: 94 bpm Height: 5'2" SpO2: 97% Weight: 164 lbs 01/19/2016 Blood Pressure 1: 122/78 Code: 8480-6 Heart Rate 1: 72 bpm SpO2: 97% Temperature: 37.1 (C) / 98.8 (F) Weight: 163 lbs 11/17/2015 Blood Pressure 1: 136/90 Code: 8480-6 BMI: 29.3 Code: 05503-7 Heart Rate 1: 77 bpm Height: 5'2" SpO2: 98% Weight: 160 lbs 10/14/2015 Blood Pressure 1: 148/86 Code: 8480-6 BMI: 29.1 Code: 33592-2 Heart Rate 1: 89 bpm Height: 5'2" SpO2: 99% Weight: 159 lbs 09/23/2015 Blood Pressure 1: 172/100 Code: 8480-6 Blood Pressure 1: 152/90 Code: 8480-6 BMI: 28.3 Code: 66993-9 Heart Rate 1: 84 bpm Height: 5'2" SpO2: 99% Weight: 155 lbs 06/13/2015 Blood Pressure 1: 130/92 Code: 8480-6 Blood Pressure 1: 130/78 Code: 8480-6 BMI: 26.7 Code: 65874-2 Heart Rate 1: 71 bpm Height: 5'2" SpO2: 98% Weight: 146 lbs 05/21/2015 Blood Pressure 1: 128/80 Code: 8480-6 BMI: 26.2 Code: 71138-9 Heart Rate 1: 73 bpm Height: 5'2" SpO2: 99% Weight: 143 lbs 04/24/2015 Blood Pressure 1: 118/80 Code: 8480-6 BMI: 26.2 Code: 86631-5 Heart Rate 1: 66 bpm Height: 5'2" SpO2: 96% Weight: 143 lbs Functional Status No Functional Status data History of Present Illness Symptom Name Status Result Effective Date Notes Additional Comments medication use 08/15/2018 None Location [...] data Encounters Encounter Performer Location Codes Date 11227 EST. PATIENT, LEVEL III Diagnosis: Generalized anxiety disorder[ICD10: F41.1] Diagnosis: Major depressive disorder, single episode, moderate[ICD10: F32.1] Niya Kearns MD, [facility] CPT-4: 90456 08/15/2018 15018 EST. PATIENT, LEVEL III Diagnosis: Generalized anxiety disorder[ICD10: F41.1] Diagnosis: Major depressive disorder, single episode, moderate[ICD10: F32.1] Niya Kearns MD, [facility] CPT-4: 04534 08/02/2018 14686 EST. PATIENT, LEVEL IV Diagnosis: Other malaise[ICD10: R53.81] Diagnosis: Other specified intestinal infections[ICD10: A08.8] Diagnosis: Gastro-esophageal reflux disease without esophagitis[ICD10: K21.9] Niya Kearns MD, [facility] CPT-4: 81839 05/26/2016 55981 EST. PATIENT, LEVEL III Diagnosis: Cough[ICD10: R05] Diagnosis: Other malaise[ICD10: R53.81] Diagnosis: Influenza due to identified novel influenza A virus with other respiratory manifestations[ICD10: J09.X2] Niya Kearns MD, [facility] CPT-4: 00281 03/04/2016 ([id number]) 56889 EST. PATIENT, LEVEL III Diagnosis: Dysuria[ICD10: R30.0] Diagnosis: Abnormal weight gain[ICD10: R63.5] Diagnosis: Irregular menstruation, unspecified[ICD10: N92.6] Krista Kearns MD, [facility] CPT-4: 70934 02/10/2016 ([id number]) 15736 EST. PATIENT, LEVEL III Diagnosis: Acute recurrent maxillary sinusitis[ICD10: J01.01] Krista Kearns MD, [facility] CPT-4: 26959 01/19/2016 42586 EST. PATIENT, LEVEL III Diagnosis: Generalized anxiety disorder[ICD10: F41.1] Diagnosis: Major depressive disorder, single episode, mild[ICD10: F32.0] Niya Kearns MD, [facility] CPT-4: 18497 11/17/2015 24372 EST. PATIENT, LEVEL III Diagnosis: Other fatigue[ICD10: R53.83] Diagnosis: Abnormal weight gain[ICD10: R63.5] Diagnosis: Other specified anemias[ICD10: D64.89] Niya Kearns MD, [facility] CPT- 4: 54861 10/14/2015 ([id number]) 29397 EST. PATIENT, LEVEL III Diagnosis: Urinary tract infection, site not specified[ICD10: N39.0] Krista Kearns MD, [facility] CPT-4: 27783 09/23/2015 ([id number]) 92183 EST. PATIENT, LEVEL III Diagnosis: Slow transit constipation[ICD10: K59.01] Krista Kearns MD, [facility] CPT-4: 34241 06/13/2015 97720 EST. PATIENT, LEVEL III Diagnosis: Urinary tract infection, site not specified[ICD10: N39.0] Niya Kearns MD, [facility] CPT-4: 24779 05/21/2015 ([id number]) PREV VISIT NEW AGE 12-17 Diagnosis: Encounter for routine child health examination with abnormal findings[ICD10: Z00.121] Malathi Kearns MD, [facility] CPT-4: 47345 04/24/2015 Plan of Care Planned Activity Notes Codes Status Date Appointment: Niya Riojas WPtel: [address] [place], [place] [id number] (30 min) Complex 09/06/2018 Visit Plan: Chronic Depression and anxiety - the pt has symptoms of chronic anxiety and depression that have been fairly well controlled since the last office visit. The pt has expected periods of exacerbation with abatement of the symptoms with change in situational exposure. No change in current medications. 08/15/2018 Appointment: Niya Riojas WPtel: [address] (30 min) Complex 08/15/2018 Patient Education: Patient [...] this patient. 08/02/2018 Appointment: Niya Riojas WPtel: [facility]5 [id number] (30 min) Complex 08/02/2018 Patient Education: Patient Medication Summary Completed [...] not improved. 05/26/2016 Appointment: Niya Riojas WPtel: [facility]9 [id number] (15 min) Moderate 05/26/2016 Patient Education: Patient Medication Summary Completed 05/26/2016 Patient Education: Obesity Completed 05/26/2016 Visit Plan: Influenza - pt started on tamiflu - pt to start on anti-inflammatories, tylenol and monitor symptoms. Pt to call if not improving. Pt to alert any close contacts as to illness. 03/04/2016 Appointment: Niya Riojas WPtel: [phone] (30 min) Complex 03/04/2016 Patient Education: Patient [...] show improvement. 01/19/2016 Appointment: Krista Tee WPtel: [facility]0 [phone] [place] (15 min) Moderate 01/19/2016 Patient Education: Patient Medication Summary Completed 01/19/2016 Appointment: Niya Riojas WPtel: [phone] [facility] (30 min) Complex 12/15/2015 Visit Plan: Anxiety [...] this patient. 11/17/2015 Appointment: Ni[facility] Riojas WPtel[id number] [facility] 11/17/2015 Patient Education: Patient Medication Summary Completed [...] iron supplementation. 04/24/2015 Appointment: Malathi Kearns WPtel: [address] [place], [place] [id number] New Patient 04/24/2015 Patient Education: Patient Medication [...] as tolerated. Call if symptoms not improved. slow FE (slow release Iron supplement) - [...]
--- OUTSIDE RECORDS SUMMARY | 2018-09-18 02:31 | XMS REPORT | CCD ---
Author Author Malathi Kearns Organization [facility] Address [address] [place] [address] Phone Care Team Providers Care Associate Java Developer Name Role Phone PP Unavailable CCM Unavailable Summary Purpose Interface Exchange Insurance Providers Payer name Policy type / Coverage type Covered green party ID Effective Begin Date Effective End Date Blue Cross Blue [facility] Blue Cross/Blue Shield [id number] Unknown Family history Grandmother Diagnosis Age At Onset Colon cancer Unknown Social History Social History Element Codes Description Effective Dates Marital status Unknown Single 04/24/2015 Employment Unknown Student 04/24/[address]: 550211190 Never smoker 04/24/[address]: 014965627 Never drinks alcohol 04/24/2015 Allergies, Adverse Reactions, [...] Start Date Stop Date Status Fill Instructions buspirone 10 mg tablet RxNorm: 281337 1 Tablet(s) PO BID 08/15/2018 09/13/2018 Active buspirone 5 mg tablet RxNorm: 841388 1 Tablet(s) PO BID 08/02/2018 08/31/2018 Active Zofran 4 mg tablet RxNorm: 307547 1 Tablet(s) PO TID as needed nausea and vomitting 05/27/2016 05/31/2016 Inactive Zofran 4 mg tablet RxNorm: 039322 1 Tablet(s) PO TID as needed nausea and vomitting 05/26/2016 05/30/2016 Inactive Tamiflu 75 mg capsule RxNorm: 991893 1 Capsule(s) PO BID 03/04/2016 03/08/2016 Inactive Keflex 500 mg capsule RxNorm: 231886 1 Capsule(s) PO TID 02/10/2016 02/09/2016 Inactive Keflex 500 mg capsule RxNorm: 306446 1 Capsule(s) PO TID 02/10/2016 02/16/2016 Inactive Augmentin 875 mg-125 mg tablet RxNorm: 280848 1 Tablet(s) PO BID 01/19/2016 01/23/2016 Inactive TAKE PROBIOTIC WHILE ON ABX bupropion HCl 75 mg tablet RxNorm: 558823 1 Tablet(s) PO BID 11/17/2015 01/18/2016 Inactive bupropion HCl 75 mg tablet RxNorm: 082876 1 Tablet(s) PO BID 10/17/2015 10/16/2015 Inactive bupropion HCl 75 mg tablet RxNorm: 637598 1 Tablet(s) PO BID 10/17/2015 11/15/2015 Inactive Bactrim DS 800 mg-160 mg tablet RxNorm: 630269 1 Tablet(s) PO BID 05/21/2015 05/27/2015 Inactive Maxalt-ARTIFICIAL INSEMINATOR 5 mg disintegrating tablet RxNorm: 208465 1 Tablet(s) PO at onset of migraine and may repeat in 1 hour if migraine is not treated 04/24/2015 No Stop Date Active Microgestin 1.5/30 (21) 1.5 mg-30 mcg tablet RxNorm: 863312 1 Tablet(s) PO daily No Start Date Active Zofran 4 mg tablet RxNorm: 388962 1 Tablet(s) PO TID as needed nausea [...] Item Code Result Date C A/B FLU 0622417 Influenza A Scr Negative 05/26/2016 C A/B FLU 3517220 Influenza B Scr Negative 05/26/2016 C A/B FLU 0651554 Influenza A Scr Positive 03/04/2016 C A/B FLU 2371044 Influenza B Scr Negative 03/04/2016 Culture Urine [id number] URINE CULTURE SEE NOTES 02/13/2016 Culture Urine [id number] Continued Results 02/13/2016 Urine Culture Ucult Complete >100,000 col/ml aerobic growth sent to ref lab 02/11/2016 Urine Bhcg Eng438 Urine BHCG Negative 02/10/2016 Cbc With Differential [...] 28.9 pg 10/15/2015 Cbc With Differential Ord2 [place]% 11.3 % 10/15/2015 Cbc With Differential Ord2 [...] 2.35 K/ul 10/15/2015 Cbc With Differential Ord2 [place] ABS# 0.8 K/ul 10/15/2015 Cbc With Differential Ord2 Eos ABS# 0.1 K/ul 10/15/2015 Cbc With Differential Ord2 Baso ABS# 0.1 K/ul 10/15/2015 Free T4 Eqx940 FREE T4 0.71 ng/dL 10/15/2015 Comp Metabolic Fpr887 NA 135 mEq/L 10/15/2015 Comp Metabolic Iks694 K 5.4 mEq/L 10/15/2015 Comp Metabolic Yen608 CL 104 mEq/L 10/15/2015 Comp Metabolic Wmn928 CO2 24.0 mEq/L 10/15/2015 Comp Metabolic Gnc411 ANION GAP 12 10/15/2015 Comp Metabolic Oxw762 GLUCOSE 78 mg/dL 10/15/2015 Comp Metabolic Zqd218 Creat 0.5 mg/dL 10/15/2015 Comp Metabolic Biw999 eGFR 156 ml/min/1.73m2 10/15/2015 Comp Metabolic Lsf494 BUN 11 mg/dL 10/15/2015 Comp Metabolic Opw966 B/C Ratio 20.4 Ratio 10/15/2015 Comp Metabolic Nqk211 CALCIUM 9.6 mg/dL 10/15/2015 Comp Metabolic Mec854 ALK PHOS 60 U/L 10/15/2015 Comp Metabolic Auc657 AST(SGOT) 16 U/L 10/15/2015 Comp Metabolic Fng737 ALT(SGPT) 13 U/L 10/15/2015 Comp Metabolic Jyz412 BILI T 0.2 mg/dL 10/15/2015 Comp Metabolic Tsz807 ALBUMIN 4.3 g/dL 10/15/2015 Comp Metabolic Cje444 TPRO 7.6 g/dL 10/15/2015 Comp Metabolic Nue581 GLOB 3.3 g/dL 10/15/2015 Comp Metabolic Wgd637 A/G Ratio 1.3 Ratio 10/15/2015 Comp Metabolic Lcc888 Osmo 268 mOsmo 10/15/2015 Tsh Ord6 hTSH [...] 27.6 pg 08/11/2015 Cbc With Differential Ord2 [place]% 10.4 % 08/11/2015 Cbc With Differential Ord2 [...] 2.11 K/ul 08/11/2015 Cbc With Differential Ord2 [place] ABS# 0.6 K/ul 08/11/2015 Cbc With Differential [...] 28.6 pg 04/24/2015 Cbc With Differential Ord2 [place]% 9.7 % 04/24/2015 Cbc With Differential Ord2 [...] 2.05 K/ul 04/24/2015 Cbc With Differential Ord2 [place] ABS# 0.6 K/ul 04/24/2015 Cbc With Differential [...] clear 08/15/2018 None Full Exam - General 1995 Eyes conjunctiva/eyelids Overall: cornea clear 08/15/2018 None Full Exam - General 1994 Eyes conjunctiva/eyelids Overall: eyelids normal 08/15/2018 None Full Exam - General 1995 Ears/Nose/Throat lips/teeth/gingiva Overall: benign lips 08/15/2018 None Full Exam - General 1995 Ears/Nose/Throat oral cavity/pharynx/larynx Overall: oral mucosa clear [...] Codes Date URINALYSIS NONAUTO W/O SCOPE CPT-4: 24556 02/10/2016 URINALYSIS NONAUTO W/O SCOPE CPT-4: 06534 09/08/2015 Vital Signs Date Vital 08/15/2018 Blood Pressure 1: 124/68 Code: 8480-6 BMI: 30.4 Code: 76178-1 Heart Rate 1: 73 bpm Height: 5'2" SpO2: 97% Weight: 166 lbs 08/02/2018 Blood Pressure 1: 120/64 Code: 8480-6 BMI: 30.4 Code: 07111-6 Heart Rate 1: 65 bpm Height: 5'2" SpO2: 98% Weight: 166 lbs 05/26/2016 Blood Pressure 1: 128/84 Code: 8480-6 BMI: 29.1 Code: 12875-0 Heart Rate 1: 73 bpm Height: 5'2" SpO2: 98% Weight: 159 lbs 03/04/2016 Blood Pressure 1: 135/80 Code: 8480-6 Heart Rate 1: 112 bpm SpO2: 98% Temperature: 37.2 (C) / 98.9 (F) Weight: 163 lbs 02/10/2016 Blood Pressure 1: 124/86 Code: 8480-6 BMI: 30.0 Code: 46572-4 Heart Rate 1: 94 bpm Height: 5'2" SpO2: 97% Weight: 164 lbs 01/19/2016 Blood Pressure 1: 122/78 Code: 8480-6 Heart Rate 1: 72 bpm SpO2: 97% Temperature: 37.1 (C) / 98.8 (F) Weight: 163 lbs 11/17/2015 Blood Pressure 1: 136/90 Code: 8480-6 BMI: 29.3 Code: 33776-9 Heart Rate 1: 77 bpm Height: 5'2" SpO2: 98% Weight: 160 lbs 10/14/2015 Blood Pressure 1: 148/86 Code: 8480-6 BMI: 29.1 Code: 04709-4 Heart Rate 1: 89 bpm Height: 5'2" SpO2: 99% Weight: 159 lbs 09/23/2015 Blood Pressure 1: 172/100 Code: 8480-6 Blood Pressure 1: 152/90 Code: 8480-6 BMI: 28.3 Code: 25760-4 Heart Rate 1: 84 bpm Height: 5'2" SpO2: 99% Weight: 155 lbs 06/13/2015 Blood Pressure 1: 130/92 Code: 8480-6 Blood Pressure 1: 130/78 Code: 8480-6 BMI: 26.7 Code: 08179-4 Heart Rate 1: 71 bpm Height: 5'2" SpO2: 98% Weight: 146 lbs 05/21/2015 Blood Pressure 1: 128/80 Code: 8480-6 BMI: 26.2 Code: 56069-1 Heart Rate 1: 73 bpm Height: 5'2" SpO2: 99% Weight: 143 lbs 04/24/2015 Blood Pressure 1: 118/80 Code: 8480-6 BMI: 26.2 Code: 59809-4 Heart Rate 1: 66 bpm Height: 5'2" [...] data Encounters Encounter Performer Location Codes Date 58874 EST. PATIENT, LEVEL III Diagnosis: Generalized anxiety disorder[ICD10: F41.1] Diagnosis: Major depressive disorder, single episode, moderate[ICD10: F32.1] Niya Kearns MD, [facility] CPT-4: 22724 08/15/2018 46896 EST. PATIENT, LEVEL III Diagnosis: Generalized anxiety disorder[ICD10: F41.1] Diagnosis: Major depressive disorder, single episode, moderate[ICD10: F32.1] Niya Kearns MD, [facility] CPT-4: 22842 08/02/2018 02606 EST. PATIENT, LEVEL IV Diagnosis: Other malaise[ICD10: R53.81] Diagnosis: Other specified intestinal infections[ICD10: A08.8] Diagnosis: Gastro-esophageal reflux disease without esophagitis[ICD10: K21.9] Niya Kearns MD, [facility] CPT-4: 78112 05/26/2016 72314 EST. PATIENT, LEVEL III Diagnosis: Cough[ICD10: R05] Diagnosis: Other malaise[ICD10: R53.81] Diagnosis: Influenza due to identified novel influenza A virus with other respiratory manifestations[ICD10: J09.X2] Niya Kearns MD, [facility] CPT-4: 47755 03/04/2016 ([id number]) 60284 EST. PATIENT, LEVEL III Diagnosis: Dysuria[ICD10: R30.0] Diagnosis: Abnormal weight gain[ICD10: R63.5] Diagnosis: Irregular menstruation, unspecified[ICD10: N92.6] Krista Kearns MD, [facility] CPT-4: 77252 02/10/2016 ([id number]) 02237 EST. PATIENT, LEVEL III Diagnosis: Acute recurrent maxillary sinusitis[ICD10: J01.01] Krista Kearns MD, [facility] CPT-4: 00331 01/19/2016 28169 EST. PATIENT, LEVEL III Diagnosis: Generalized anxiety disorder[ICD10: F41.1] Diagnosis: Major depressive disorder, single episode, mild[ICD10: F32.0] Niya Kearns MD, [facility] CPT-4: 94986 11/17/2015 52109 EST. PATIENT, LEVEL III Diagnosis: Other fatigue[ICD10: R53.83] Diagnosis: Abnormal weight gain[ICD10: R63.5] Diagnosis: Other specified anemias[ICD10: D64.89] Niya Kearns MD, [facility] CPT- 4: 97152 10/14/2015 ([id number]) 60924 EST. PATIENT, LEVEL III Diagnosis: Urinary tract infection, site not specified[ICD10: N39.0] Krista Kearns MD, [facility] CPT-4: 03869 09/23/2015 ([id number]) 86485 EST. PATIENT, LEVEL III Diagnosis: Slow transit constipation[ICD10: K59.01] Krista Kearns MD, [facility] CPT-4: 35845 06/13/2015 35228 EST. PATIENT, LEVEL III Diagnosis: Urinary tract infection, site not specified[ICD10: N39.0] Niya Kearns MD, [facility] CPT-4: 48396 05/21/2015 ([id number]) PREV VISIT NEW AGE 12-17 Diagnosis: Encounter for routine child health examination with abnormal findings[ICD10: Z00.121] Malathi Kearns MD, [facility] CPT-4: 18610 04/24/2015 Plan of Care Planned Activity Notes Codes Status Date Visit Plan: Chronic Depression and anxiety - the pt has symptoms of chronic anxiety and depression that have been fairly well controlled since the last office visit. The pt has expected periods of exacerbation with abatement of the symptoms with change in situational exposure. No change in current medications. 08/15/2018 Appointment: Niya Riojas WPtel: [address] [place], [place] [phone] (30 min) [facility] 08/15/2018 Patient Education: Patient Medication Summary Completed [...] this patient. 08/02/2018 Appointment: Niya Riojas WPtel: [phone] [facility] (30 min) [...] Niya Riojas WPtel: [facility] (15 min) Moderate 05/26/2016 Patient Education: Patient Medication Summary Completed 05/26/2016 Patient Education: Obesity Completed 05/26/2016 Visit Plan: Influenza - pt started on tamiflu - pt to start on anti-inflammatories, tylenol and monitor symptoms. Pt to call if not improving. Pt to alert any close contacts as to illness. 03/04/2016 Appointment: Niya Riojas WPtel: [phone] [facility] (30 min) Complex 03/04/2016 Patient Education: Patient [...] Appointment: Krista Tee WPtel: [facility]6 [phone] (15 min) Moderate 01/19/2016 Patient Education: Patient Medication Summary Completed 01/19/2016 Appointment: Niya Riojas WPtel: [facility]8 [facility] (30 min) Complex 12/15/2015 Visit Plan: Anxiety [...] this patient. 11/17/2015 Appointment: Niya Riojas WPtel: [phone] [facility] (30 min) Complex 11/17/2015 Patient Education: Patient [...] iron supplementation. 04/24/2015 Appointment: Malathi Kearns WPtel: [address] [place], [place] [address] New Patient 04/24/2015 Patient Education: Patient Medication [...]
--- OUTSIDE RECORDS SUMMARY | 2018-09-18 02:32 | XMS REPORT | CCD ---
Author Author Malathi Kearns Organization [facility] Address [address] [place] [address] Phone Care Team Providers Care Sales Consultant Insurance Name Role Phone PP Unavailable CCM Unavailable Summary Purpose Interface Exchange Insurance Providers Payer name Policy type / Coverage type Covered green party ID Effective Begin Date Effective End Date Blue Cross Blue [facility] Blue Cross/Blue Shield [id number] Unknown Family history Grandmother Diagnosis Age At Onset Colon cancer Unknown Social History Social History Element Codes Description Effective Dates Marital status Unknown Single 04/24/2015 Employment Unknown Student 04/24/[address]: 842482307 Never smoker 04/24/[address]: 689211326 Never drinks alcohol 04/24/2015 Allergies, Adverse Reactions, [...] Fill Instructions buspirone 10 mg tablet RxNorm: 261339 1 Tablet(s) PO BID 08/15/2018 09/13/2018 Active buspirone 5 mg tablet RxNorm: 838475 1 Tablet(s) PO BID 08/02/2018 08/31/2018 Active Zofran 4 mg tablet RxNorm: 747602 1 Tablet(s) PO TID as needed nausea and vomitting 05/27/2016 05/31/2016 Inactive Zofran 4 mg tablet RxNorm: 111736 1 Tablet(s) PO TID as needed nausea and vomitting 05/26/2016 05/30/2016 Inactive Tamiflu 75 mg capsule RxNorm: 604074 1 Capsule(s) PO BID 03/04/2016 03/08/2016 Inactive Keflex 500 mg capsule RxNorm: 197239 1 Capsule(s) PO TID 02/10/2016 02/09/2016 Inactive Keflex 500 mg capsule RxNorm: 368290 1 Capsule(s) PO TID 02/10/2016 02/16/2016 Inactive Augmentin 875 mg-125 mg tablet RxNorm: 208132 1 Tablet(s) PO BID 01/19/2016 01/23/2016 Inactive TAKE PROBIOTIC WHILE ON ABX bupropion HCl 75 mg tablet RxNorm: 932741 1 Tablet(s) PO BID 11/17/2015 01/18/2016 Inactive bupropion HCl 75 mg tablet RxNorm: 498062 1 Tablet(s) PO BID 10/17/2015 10/16/2015 Inactive bupropion HCl 75 mg tablet RxNorm: 840816 1 Tablet(s) PO BID 10/17/2015 11/15/2015 Inactive Bactrim DS 800 mg-160 mg tablet RxNorm: 264702 1 Tablet(s) PO BID 05/21/2015 05/27/2015 Inactive Maxalt-MANAGER GENERATION 5 mg disintegrating tablet RxNorm: 898420 1 Tablet(s) PO at onset of migraine and may repeat in 1 hour if migraine is not treated 04/24/2015 No Stop Date Active Microgestin 1.5/30 (21) 1.5 mg-30 mcg tablet RxNorm: 872620 1 Tablet(s) PO daily No Start Date Active Zofran 4 mg tablet RxNorm: 673176 1 Tablet(s) PO TID as needed nausea [...] Item Code Result Date C A/B FLU 5064338 Influenza A Scr Negative 05/26/2016 C A/B FLU 6024312 Influenza B Scr Negative 05/26/2016 C A/B FLU 8124906 Influenza A Scr Positive 03/04/2016 C A/B FLU 3062526 Influenza B Scr Negative 03/04/2016 Culture Urine [id number] URINE CULTURE SEE NOTES 02/13/2016 Culture Urine [id number] Continued Results 02/13/2016 Urine Culture Ucult Complete >100,000 col/ml aerobic growth sent to ref lab 02/11/2016 Urine Bhcg Fqz729 Urine BHCG Negative 02/10/2016 Cbc With Differential [...] 28.9 pg 10/15/2015 Cbc With Differential Ord2 [place]% 11.3 % 10/15/2015 Cbc With Differential Ord2 [...] 2.35 K/ul 10/15/2015 Cbc With Differential Ord2 [place] ABS# 0.8 K/ul 10/15/2015 Cbc With Differential Ord2 Eos ABS# 0.1 K/ul 10/15/2015 Cbc With Differential Ord2 Baso ABS# 0.1 K/ul 10/15/2015 Free T4 Tzk255 FREE T4 0.71 ng/dL 10/15/2015 Comp Metabolic Ixo271 NA 135 mEq/L 10/15/2015 Comp Metabolic Aiq572 K 5.4 mEq/L 10/15/2015 Comp Metabolic Gfa074 CL 104 mEq/L 10/15/2015 Comp Metabolic Ihh810 CO2 24.0 mEq/L 10/15/2015 Comp Metabolic Rzi832 ANION GAP 12 10/15/2015 Comp Metabolic Ako944 GLUCOSE 78 mg/dL 10/15/2015 Comp Metabolic Aam985 Creat 0.5 mg/dL 10/15/2015 Comp Metabolic Sjw447 eGFR 156 ml/min/1.73m2 10/15/2015 Comp Metabolic Qmy769 BUN 11 mg/dL 10/15/2015 Comp Metabolic Clp366 B/C Ratio 20.4 Ratio 10/15/2015 Comp Metabolic Ply312 CALCIUM 9.6 mg/dL 10/15/2015 Comp Metabolic Gyr968 ALK PHOS 60 U/L 10/15/2015 Comp Metabolic Xje965 AST(SGOT) 16 U/L 10/15/2015 Comp Metabolic Xrh493 ALT(SGPT) 13 U/L 10/15/2015 Comp Metabolic Bwu578 BILI T 0.2 mg/dL 10/15/2015 Comp Metabolic Jzj846 ALBUMIN 4.3 g/dL 10/15/2015 Comp Metabolic Crr603 TPRO 7.6 g/dL 10/15/2015 Comp Metabolic Dcq317 GLOB 3.3 g/dL 10/15/2015 Comp Metabolic Kao418 A/G Ratio 1.3 Ratio 10/15/2015 Comp Metabolic Dwk333 Osmo 268 mOsmo 10/15/2015 Tsh Ord6 hTSH [...] 27.6 pg 08/11/2015 Cbc With Differential Ord2 [place]% 10.4 % 08/11/2015 Cbc With Differential Ord2 [...] 2.11 K/ul 08/11/2015 Cbc With Differential Ord2 [place] ABS# 0.6 K/ul 08/11/2015 Cbc With Differential [...] 28.6 pg 04/24/2015 Cbc With Differential Ord2 [place]% 9.7 % 04/24/2015 Cbc With Differential Ord2 [...] 2.05 K/ul 04/24/2015 Cbc With Differential Ord2 [place] ABS# 0.6 K/ul 04/24/2015 Cbc With Differential [...] Codes Date URINALYSIS NONAUTO W/O SCOPE CPT-4: 54279 02/10/2016 URINALYSIS NONAUTO W/O SCOPE CPT-4: 83151 09/08/2015 Vital Signs Date Vital 08/15/2018 Blood Pressure 1: 124/68 Code: 8480-6 BMI: 30.4 Code: 11858-5 Heart Rate 1: 73 bpm Height: 5'2" SpO2: 97% Weight: 166 lbs 08/02/2018 Blood Pressure 1: 120/64 Code: 8480-6 BMI: 30.4 Code: 72641-3 Heart Rate 1: 65 bpm Height: 5'2" SpO2: 98% Weight: 166 lbs 05/26/2016 Blood Pressure 1: 128/84 Code: 8480-6 BMI: 29.1 Code: 35675-1 Heart Rate 1: 73 bpm Height: 5'2" SpO2: 98% Weight: 159 lbs 03/04/2016 Blood Pressure 1: 135/80 Code: 8480-6 Heart Rate 1: 112 bpm SpO2: 98% Temperature: 37.2 (C) / 98.9 (F) Weight: 163 lbs 02/10/2016 Blood Pressure 1: 124/86 Code: 8480-6 BMI: 30.0 Code: 24824-9 Heart Rate 1: 94 bpm Height: 5'2" SpO2: 97% Weight: 164 lbs 01/19/2016 Blood Pressure 1: 122/78 Code: 8480-6 Heart Rate 1: 72 bpm SpO2: 97% Temperature: 37.1 (C) / 98.8 (F) Weight: 163 lbs 11/17/2015 Blood Pressure 1: 136/90 Code: 8480-6 BMI: 29.3 Code: 24807-0 Heart Rate 1: 77 bpm Height: 5'2" SpO2: 98% Weight: 160 lbs 10/14/2015 Blood Pressure 1: 148/86 Code: 8480-6 BMI: 29.1 Code: 34447-4 Heart Rate 1: 89 bpm Height: 5'2" SpO2: 99% Weight: 159 lbs 09/23/2015 Blood Pressure 1: 172/100 Code: 8480-6 Blood Pressure 1: 152/90 Code: 8480-6 BMI: 28.3 Code: 16999-4 Heart Rate 1: 84 bpm Height: 5'2" SpO2: 99% Weight: 155 lbs 06/13/2015 Blood Pressure 1: 130/92 Code: 8480-6 Blood Pressure 1: 130/78 Code: 8480-6 BMI: 26.7 Code: 09915-3 Heart Rate 1: 71 bpm Height: 5'2" SpO2: 98% Weight: 146 lbs 05/21/2015 Blood Pressure 1: 128/80 Code: 8480-6 BMI: 26.2 Code: 90077-7 Heart Rate 1: 73 bpm Height: 5'2" SpO2: 99% Weight: 143 lbs 04/24/2015 Blood Pressure 1: 118/80 Code: 8480-6 BMI: 26.2 Code: 92681-5 Heart Rate 1: 66 bpm Height: 5'2" [...] data Encounters Encounter Performer Location Codes Date 92618 EST. PATIENT, LEVEL III Diagnosis: Generalized anxiety disorder[ICD10: F41.1] Diagnosis: Major depressive disorder, single episode, moderate[ICD10: F32.1] Niya Kearns MD, [facility] CPT-4: 03126 08/15/2018 28273 EST. PATIENT, LEVEL III Diagnosis: Generalized anxiety disorder[ICD10: F41.1] Diagnosis: Major depressive disorder, single episode, moderate[ICD10: F32.1] Niya Kearns MD, [facility] CPT-4: 33634 08/02/2018 50075 EST. PATIENT, LEVEL IV Diagnosis: Other malaise[ICD10: R53.81] Diagnosis: Other specified intestinal infections[ICD10: A08.8] Diagnosis: Gastro-esophageal reflux disease without esophagitis[ICD10: K21.9] Niya Kearns MD, [facility] CPT-4: 09742 05/26/2016 58307 EST. PATIENT, LEVEL III Diagnosis: Cough[ICD10: R05] Diagnosis: Other malaise[ICD10: R53.81] Diagnosis: Influenza due to identified novel influenza A virus with other respiratory manifestations[ICD10: J09.X2] Niya Kearns MD, [facility] CPT-4: 91917 03/04/2016 ([id number]) 89976 EST. PATIENT, LEVEL III Diagnosis: Dysuria[ICD10: R30.0] Diagnosis: Abnormal weight gain[ICD10: R63.5] Diagnosis: Irregular menstruation, unspecified[ICD10: N92.6] Krista Kearns MD, [facility] CPT-4: 34093 02/10/2016 ([id number]) 63151 EST. PATIENT, LEVEL III Diagnosis: Acute recurrent maxillary sinusitis[ICD10: J01.01] Krista Kearns MD, [facility] CPT-4: 55984 01/19/2016 60262 EST. PATIENT, LEVEL III Diagnosis: Generalized anxiety disorder[ICD10: F41.1] Diagnosis: Major depressive disorder, single episode, mild[ICD10: F32.0] Niya Kearns MD, [facility] CPT-4: 84329 11/17/2015 00946 EST. PATIENT, LEVEL III Diagnosis: Other fatigue[ICD10: R53.83] Diagnosis: Abnormal weight gain[ICD10: R63.5] Diagnosis: Other specified anemias[ICD10: D64.89] Niya Kearns MD, [facility] CPT- 4: 42462 10/14/2015 ([id number]) 74527 EST. PATIENT, LEVEL III Diagnosis: Urinary tract infection, site not specified[ICD10: N39.0] Krista Kearns MD, [facility] CPT-4: 70987 09/23/2015 ([id number]) 53139 EST. PATIENT, LEVEL III Diagnosis: Slow transit constipation[ICD10: K59.01] Krista Kearns MD, [facility] CPT-4: 52572 06/13/2015 14663 EST. PATIENT, LEVEL III Diagnosis: Urinary tract infection, site not specified[ICD10: N39.0] Niya Kearns MD, [facility] CPT-4: 90160 05/21/2015 ([id number]) PREV VISIT NEW AGE 12-17 Diagnosis: Encounter for routine child health examination with abnormal findings[ICD10: Z00.121] Malathi Kearns MD, [facility] CPT-4: 17622 04/24/2015 Plan of Care Planned Activity Notes [...] current medications. 08/15/2018 Appointment: Niya Riojas WPtel: [address] [place], [place] [phone] (30 min) [facility] 08/15/2018 Patient Education: Patient Medication Summary [...] this patient. 08/02/2018 Appointment: Niya Riojas WPtel: [address] [facility] (30 min) Complex 08/02/2018 Patient Education: Patient [...] not improved. 05/26/2016 Appointment: Niya Riojas WPtel: [facility] (15 min) Moderate 05/26/2016 Patient Education: Patient Medication Summary Completed 05/26/2016 Patient Education: Obesity Completed 05/26/2016 Visit Plan: Influenza - pt started on tamiflu - pt to start on anti-inflammatories, tylenol and monitor symptoms. Pt to call if not improving. Pt to alert any close contacts as to illness. 03/04/2016 Appointment: Niya Riojas WPtel: [address] [facility] (30 min) Complex 03/04/2016 Patient [...] show improvement. 01/19/2016 Appointment: Krista Tee WPtel: [facility]3 [phone] (15 min) Moderate 01/19/2016 Patient Education: Patient Medication Summary Completed 01/19/2016 Appointment: Niya Riojas WPtel: [facility] (30 min) Complex 12/15/2015 Visit Plan: Anxiety [...] patient. 11/17/2015 Appointment: Niya Riojas WPtel: [phone] [facility] (30 min) Complex 11/17/2015 Patient Education: Patient [...] iron supplementation. 04/24/2015 Appointment: Malathi Kearns WPtel: [address] [place], [place] [address] New Patient 04/24/2015 Patient Education: Patient Medication [...]
--- OUTSIDE RECORDS SUMMARY | 2018-09-18 02:33 | XMS REPORT | CCD ---
Author Author Malathi Kearns Organization [facility] Address [address] [place] [address] Phone Care Team Providers Care Tub Attendant Name Role Phone PP Unavailable CCM Unavailable Summary Purpose Interface Exchange Insurance Providers Payer name Policy type / Coverage type Covered democrat ID Effective Begin Date Effective End Date Blue Cross Blue [facility] Blue Cross/Blue Shield [id number] Unknown Family history Grandmother Diagnosis Age At Onset Colon cancer Unknown Social History Social History Element Codes Description Effective Dates Marital status Unknown Single 04/24/2015 Employment Unknown Student 04/24/[address]: 639613364 Never smoker 04/24/[address]: 224458445 Never drinks alcohol 04/24/2015 Allergies, Adverse Reactions, [...] Date Stop Date Status Fill Instructions buspirone 5 mg tablet RxNorm: 409596 1 Tablet(s) PO BID 08/02/2018 08/31/2018 Active Zofran 4 mg tablet RxNorm: 813331 1 Tablet(s) PO TID as needed nausea and vomitting 05/27/2016 05/31/2016 Inactive Zofran 4 mg tablet RxNorm: 725448 1 Tablet(s) PO TID as needed nausea and vomitting 05/26/2016 05/30/2016 Inactive Tamiflu 75 mg capsule RxNorm: 008786 1 Capsule(s) PO BID 03/04/2016 03/08/2016 Inactive Keflex 500 mg capsule RxNorm: 554342 1 Capsule(s) PO TID 02/10/2016 02/09/2016 Inactive Keflex 500 mg capsule RxNorm: 788357 1 Capsule(s) PO TID 02/10/2016 02/16/2016 Inactive Augmentin 875 mg-125 mg tablet RxNorm: 488731 1 Tablet(s) PO BID 01/19/2016 01/23/2016 Inactive TAKE PROBIOTIC WHILE ON ABX bupropion HCl 75 mg tablet RxNorm: 262411 1 Tablet(s) PO BID 11/17/2015 01/18/2016 Inactive bupropion HCl 75 mg tablet RxNorm: 083228 1 Tablet(s) PO BID 10/17/2015 10/16/2015 Inactive bupropion HCl 75 mg tablet RxNorm: 198025 1 Tablet(s) PO BID 10/17/2015 11/15/2015 Inactive Bactrim DS 800 mg-160 mg tablet RxNorm: 555291 1 Tablet(s) PO BID 05/21/2015 05/27/2015 Inactive Maxalt-WATER PURIFIER 5 mg disintegrating tablet RxNorm: 823830 1 Tablet(s) PO at onset of migraine and may repeat in 1 hour if migraine is not treated 04/24/2015 No Stop Date Active Microgestin 1.5/30 (21) 1.5 mg-30 mcg tablet RxNorm: 744526 1 Tablet(s) PO daily No Start Date Active Zofran 4 mg tablet RxNorm: 104885 1 Tablet(s) PO TID as needed nausea and vomitting No Start Date 05/26/2016 Inactive Medication Administered No Medication Administered data Immunizations No Immunization data Assessments Condition Codes Effective Dates Major depressive disorder, single episode, moderate ICD-10: F32.1 ICD-9: 296.22 08/02/2018 Generalized anxiety disorder ICD-10: F41.1 ICD-9: 300.00 08/02/2018 Other malaise ICD-10: R53.81 ICD-9: 780.79 05/26/2016 [...] Visit Reason For Visit Effective Dates Notes anxiety 08/02/2018 diarrhea 05/26/2016 cough 03/04/2016 nausea 02/10/2016 cough 01/19/2016 medication follow up 11/17/2015 weight gain/obesity 10/14/2015 dysuria 09/23/2015 constipation 06/13/2015 urinary urgency 05/21/2015 headache 04/24/2015 Results Observation Observation Code Item Item Code Result Date C A/B FLU 2763088 Influenza A Scr Negative 05/26/2016 C A/B FLU 3953852 Influenza B Scr Negative 05/26/2016 C A/B FLU 7905590 Influenza A Scr Positive 03/04/2016 C A/B FLU 6697362 Influenza B Scr Negative 03/04/2016 Culture Urine [id number] URINE CULTURE SEE NOTES 02/13/2016 Culture Urine [id number] Continued Results 02/13/2016 Urine Culture Ucult Complete >100,000 col/ml aerobic growth sent to ref lab 02/11/2016 Urine Bhcg Lmc330 Urine BHCG Negative 02/10/2016 Cbc With Differential [...] 28.9 pg 10/15/2015 Cbc With Differential Ord2 Tama% 11.3 % 10/15/2015 Cbc With Differential Ord2 [...] 2.35 K/ul 10/15/2015 Cbc With Differential Ord2 Tama ABS# 0.8 K/ul 10/15/2015 Cbc With Differential Ord2 Eos ABS# 0.1 K/ul 10/15/2015 Cbc With Differential Ord2 Baso ABS# 0.1 K/ul 10/15/2015 Free T4 Hot141 FREE T4 0.71 ng/dL 10/15/2015 Comp Metabolic Kxt216 NA 135 mEq/L 10/15/2015 Comp Metabolic Imd754 K 5.4 mEq/L 10/15/2015 Comp Metabolic Krw111 CL 104 mEq/L 10/15/2015 Comp Metabolic Mos765 CO2 24.0 mEq/L 10/15/2015 Comp Metabolic Omm517 ANION GAP 12 10/15/2015 Comp Metabolic Nnl262 GLUCOSE 78 mg/dL 10/15/2015 Comp Metabolic Tvg353 Creat 0.5 mg/dL 10/15/2015 Comp Metabolic Hlf880 eGFR 156 ml/min/1.73m2 10/15/2015 Comp Metabolic Mhj631 BUN 11 mg/dL 10/15/2015 Comp Metabolic Qys420 B/C Ratio 20.4 Ratio 10/15/2015 Comp Metabolic Oti886 CALCIUM 9.6 mg/dL 10/15/2015 Comp Metabolic Bot764 ALK PHOS 60 U/L 10/15/2015 Comp Metabolic Fqi440 AST(SGOT) 16 U/L 10/15/2015 Comp Metabolic Vum434 ALT(SGPT) 13 U/L 10/15/2015 Comp Metabolic Daa322 BILI T 0.2 mg/dL 10/15/2015 Comp Metabolic Exo301 ALBUMIN 4.3 g/dL 10/15/2015 Comp Metabolic Dpf062 TPRO 7.6 g/dL 10/15/2015 Comp Metabolic Inx268 GLOB 3.3 g/dL 10/15/2015 Comp Metabolic Hni674 A/G Ratio 1.3 Ratio 10/15/2015 Comp Metabolic Vae136 Osmo 268 mOsmo 10/15/2015 Tsh Ord6 hTSH [...] 27.6 pg 08/11/2015 Cbc With Differential Ord2 Tama% 10.4 % 08/11/2015 Cbc With Differential Ord2 [...] 2.11 K/ul 08/11/2015 Cbc With Differential Ord2 T[place] ABS# 0.6 K/ul 08/11/2015 Cbc With Differential [...] 28.6 pg 04/24/2015 Cbc With Differential Ord2 [place]% 9.7 % 04/24/2015 Cbc With Differential Ord2 [...] 2.05 K/ul 04/24/2015 Cbc With Differential Ord2 Tama ABS# 0.6 K/ul 04/24/2015 Cbc With Differential Ord2 Eos ABS# 0.1 K/ul 04/24/2015 Cbc With Differential Ord2 Baso ABS# 0.0 K/ul 04/24/2015 Cbc With Differential Ord2 New Analyzer Notice Please note new ref ranges starting 03-05-2015 due to implemntation of new five part differential hematolgy analyzer. 04/24/2015 Review of Systems System Result Effective Dates Constitutional No recent illness 08/02/2018 Constitutional No [...] Codes Date URINALYSIS NONAUTO W/O SCOPE CPT-4: 30950 02/10/2016 URINALYSIS NONAUTO W/O SCOPE CPT-4: 67306 09/08/2015 Vital Signs Date Vital 08/02/2018 Blood Pressure 1: 120/64 Code: 8480-6 BMI: 30.4 Code: 94234-2 Heart Rate 1: 65 bpm Height: 5'2" SpO2: 98% Weight: 166 lbs 05/26/2016 Blood Pressure 1: 128/84 Code: 8480-6 BMI: 29.1 Code: 64291-1 Heart Rate 1: 73 bpm Height: 5'2" SpO2: 98% Weight: 159 lbs 03/04/2016 Blood Pressure 1: 135/80 Code: 8480-6 Heart Rate 1: 112 bpm SpO2: 98% Temperature: 37.2 (C) / 98.9 (F) Weight: 163 lbs 02/10/2016 Blood Pressure 1: 124/86 Code: 8480-6 BMI: 30.0 Code: 61190-9 Heart Rate 1: 94 bpm Height: 5'2" SpO2: 97% Weight: 164 lbs 01/19/2016 Blood Pressure 1: 122/78 Code: 8480-6 Heart Rate 1: 72 bpm SpO2: 97% Temperature: 37.1 (C) / 98.8 (F) Weight: 163 lbs 11/17/2015 Blood Pressure 1: 136/90 Code: 8480-6 BMI: 29.3 Code: 57864-2 Heart Rate 1: 77 bpm Height: 5'2" SpO2: 98% Weight: 160 lbs 10/14/2015 Blood Pressure 1: 148/86 Code: 8480-6 BMI: 29.1 Code: 90245-1 Heart Rate 1: 89 bpm Height: 5'2" SpO2: 99% Weight: 159 lbs 09/23/2015 Blood Pressure 1: 172/100 Code: 8480-6 Blood Pressure 1: 152/90 Code: 8480-6 BMI: 28.3 Code: 50219-2 Heart Rate 1: 84 bpm Height: 5'2" SpO2: 99% Weight: 155 lbs 06/13/2015 Blood Pressure 1: 130/92 Code: 8480-6 Blood Pressure 1: 130/78 Code: 8480-6 BMI: 26.7 Code: 37656-0 Heart Rate 1: 71 bpm Height: 5'2" SpO2: 98% Weight: 146 lbs 05/21/2015 Blood Pressure 1: 128/80 Code: 8480-6 BMI: 26.2 Code: 78977-6 Heart Rate 1: 73 bpm Height: 5'2" SpO2: 99% Weight: 143 lbs 04/24/2015 Blood Pressure 1: 118/80 Code: 8480-6 BMI: 26.2 Code: 77431-1 Heart Rate 1: 66 bpm Height: 5'2" SpO2: 96% Weight: 143 lbs Functional Status No Functional Status data History of Present Illness Symptom Name Status Result Effective Date Notes Quality constant 08/02/2018 None Quality obsessive-compulsive 08/02/2018 [...] data Encounters Encounter Performer Location Codes Date EST. PATIENT, LEVEL III Diagnosis: Generalized anxiety disorder[ICD10: F41.1] Diagnosis: Major depressive disorder, single episode, moderate[ICD10: F32.1] Niya Kearns MD, [facility] CPT-4: 78834 08/02/2018 [id number] EST. PATIENT, LEVEL IV Diagnosis: Other malaise[ICD10: R53.81] Diagnosis: Other specified intestinal infections[ICD10: A08.8] Diagnosis: Gastro-esophageal reflux disease without esophagitis[ICD10: K21.9] Niya Kearns MD, [facility] CPT-4: 47409 05/26/2016 02676 EST. PATIENT, LEVEL III Diagnosis: Cough[ICD10: R05] Diagnosis: Other malaise[ICD10: R53.81] Diagnosis: Influenza due to identified novel influenza A virus with other respiratory manifestations[ICD10: J09.X2] Niya Kearns MD, [facility] CPT-4: 81847 03/04/2016 ([id number]) 11206 EST. PATIENT, LEVEL III Diagnosis: Dysuria[ICD10: R30.0] Diagnosis: Abnormal weight gain[ICD10: R63.5] Diagnosis: Irregular menstruation, unspecified[ICD10: N92.6] Krista Kearns MD, [facility] CPT-4: 77914 02/10/2016 ([id number]) 40968 EST. PATIENT, LEVEL III Diagnosis: Acute recurrent maxillary sinusitis[ICD10: J01.01] Krista Kearns MD, [facility] CPT-4: 88843 01/19/2016 03240 EST. PATIENT, LEVEL III Diagnosis: Generalized anxiety disorder[ICD10: F41.1] Diagnosis: Major depressive disorder, single episode, mild[ICD10: F32.0] Niya Kearns MD, [facility] CPT-4: 49934 11/17/2015 16769 EST. PATIENT, LEVEL III Diagnosis: Other fatigue[ICD10: R53.83] Diagnosis: Abnormal weight gain[ICD10: R63.5] Diagnosis: Other specified anemias[ICD10: D64.89] Niya Kearns MD, [facility] CPT- 4: 29060 10/14/2015 ([id number]) 70325 EST. PATIENT, LEVEL III Diagnosis: Urinary tract infection, site not specified[ICD10: N39.0] Krista Kearns MD, [facility] CPT-4: 71180 09/23/2015 ([id number]) 57053 EST. PATIENT, LEVEL III Diagnosis: Slow transit constipation[ICD10: K59.01] Krista Kearns MD, [facility] CPT-4: 65490 06/13/2015 92860 EST. PATIENT, LEVEL III Diagnosis: Urinary tract infection, site not specified[ICD10: N39.0] [facility] CPT-4: 96791 05/21/2015 ([id number]) PREV VISIT NEW AGE 12-17 Diagnosis: Encounter for routine child health examination with abnormal findings[ICD10: Z00.121] Malathi Kearns MD, [facility] CPT-4: 95722 04/24/2015 Plan of Care Planned Activity Notes Codes Status Date Visit Plan: Anxiety - the patient has [...] this patient. 08/02/2018 Appointment: Niya Riojas WPtel: [address] [place], [place] [phone] (30 min) [facility] 08/02/2018 Patient Education: Patient Medication Summary Completed [...] not improved. 05/26/2016 Appointment: Niya Riojas WPtel: [facility] (15 min) Moderate 05/26/2016 Patient Education: Patient Medication Summary Completed 05/26/2016 Patient Education: Obesity Completed 05/26/2016 Visit Plan: Influenza - pt started on tamiflu - pt to start on anti-inflammatories, tylenol and monitor symptoms. Pt to call if not improving. Pt to alert any close contacts as to illness. 03/04/2016 Appointment: Niya Riojas WPtel: [facility] (30 min) Complex 03/04/2016 Patient [...] show improvement. 01/19/2016 Appointment: Krista Tee WPtel: [phone] [place] (15 min) Moderate 01/19/2016 Patient Education: Patient Medication Summary Completed 01/19/2016 Appointment: Niya Riojas WPtel: [facility] (30 min) Complex 12/15/2015 Visit Plan: Anxiety [...] this patient. 11/17/2015 Appointment: Ni[facility] Riojas WPtel[facility] ([facility] 11/17/2015 Patient Education: Patient Medication Summary Completed [...] iron supplementation. 04/24/2015 Appointment: Malathi Kearns WPtel: [facility] [facility] Patient 04/24/2015 Patient Education: Patient Medication Summary Completed 04/24/2015 Instructions Comment . Sinusitis - Pt has acute infection [...]
--- OUTSIDE RECORDS SUMMARY | 2018-09-18 02:35 | XMS REPORT | CCD ---
Author Author Malathi Kearns Organization [facility] Address [address] [place] [address] Phone Care Team Providers Care Retail And Restaurant Associate Name Role Phone PP Unavailable CCM Unavailable Summary Purpose Interface Exchange Insurance Providers Payer name Policy type / Coverage type Covered republican ID Effective Begin Date Effective End Date Blue Cross Blue [facility] Blue Cross/Blue Shield [id number] Unknown Family history Grandmother Diagnosis Age At Onset Colon cancer Unknown Social History Social History Element Codes Description Effective Dates Marital status Unknown Single 04/24/2015 Employment Unknown Student 04/24/[address]: 841739844 Never smoker 04/24/[address]: 125159467 Never drinks alcohol 04/24/2015 Allergies, Adverse Reactions, [...] Fill Instructions buspirone 5 mg tablet RxNorm: 847434 1 Tablet(s) PO BID 08/02/2018 08/31/2018 Active Zofran 4 mg tablet RxNorm: 510972 1 Tablet(s) PO TID as needed nausea and vomitting 05/27/2016 05/31/2016 Inactive Zofran 4 mg tablet RxNorm: 025321 1 Tablet(s) PO TID as needed nausea and vomitting 05/26/2016 05/30/2016 Inactive Tamiflu 75 mg capsule RxNorm: 401723 1 Capsule(s) PO BID 03/04/2016 03/08/2016 Inactive Keflex 500 mg capsule RxNorm: 939539 1 Capsule(s) PO TID 02/10/2016 02/09/2016 Inactive Keflex 500 mg capsule RxNorm: 601631 1 Capsule(s) PO TID 02/10/2016 02/16/2016 Inactive Augmentin 875 mg-125 mg tablet RxNorm: 531245 1 Tablet(s) PO BID 01/19/2016 01/23/2016 Inactive TAKE PROBIOTIC WHILE ON ABX bupropion HCl 75 mg tablet RxNorm: 451117 1 Tablet(s) PO BID 11/17/2015 01/18/2016 Inactive bupropion HCl 75 mg tablet RxNorm: 627350 1 Tablet(s) PO BID 10/17/2015 10/16/2015 Inactive bupropion HCl 75 mg tablet RxNorm: 155620 1 Tablet(s) PO BID 10/17/2015 11/15/2015 Inactive Bactrim DS 800 mg-160 mg tablet RxNorm: 454339 1 Tablet(s) PO BID 05/21/2015 05/27/2015 Inactive Maxalt-QUALITY IMPROVEMENT COORDINATOR (RN) 5 mg disintegrating tablet RxNorm: 487827 1 Tablet(s) PO at onset of migraine and may repeat in 1 hour if migraine is not treated 04/24/2015 No Stop Date Active Microgestin 1.5/30 (21) 1.5 mg-30 mcg tablet RxNorm: 559583 1 Tablet(s) PO daily No Start Date Active Zofran 4 mg tablet RxNorm: 675563 1 Tablet(s) PO TID as needed nausea [...] Item Code Result Date C A/B FLU 2430078 Influenza A Scr Negative 05/26/2016 C A/B FLU 5150899 Influenza B Scr Negative 05/26/2016 C A/B FLU 5186184 Influenza A Scr Positive 03/04/2016 C A/B FLU 8262435 Influenza B Scr Negative 03/04/2016 Culture Urine [id number] URINE CULTURE SEE NOTES 02/13/2016 Culture Urine [id number] Continued Results 02/13/2016 Urine Culture Ucult Complete >100,000 col/ml aerobic growth sent to ref lab 02/11/2016 Urine Bhcg [id number] Urine BHCG Negative 02/10/2016 Cbc With Differential [...] 28.9 pg 10/15/2015 Cbc With Differential Ord2 Williamson% 11.3 % 10/15/2015 Cbc With Differential Ord2 [...] 2.35 K/ul 10/15/2015 Cbc With Differential Ord2 [place] ABS# 0.8 K/ul 10/15/2015 Cbc With Differential Ord2 Eos ABS# 0.1 K/ul 10/15/2015 Cbc With Differential Ord2 Baso ABS# 0.1 K/ul 10/15/2015 Free T4 Mcw421 FREE T4 0.71 ng/dL 10/15/2015 Comp Metabolic Hvt020 NA 135 mEq/L 10/15/2015 Comp Metabolic Ike068 K 5.4 mEq/L 10/15/2015 Comp Metabolic Lfw467 CL 104 mEq/L 10/15/2015 Comp Metabolic Bfy690 CO2 24.0 mEq/L 10/15/2015 Comp Metabolic Nul778 ANION GAP 12 10/15/2015 Comp Metabolic Hor811 GLUCOSE 78 mg/dL 10/15/2015 Comp Metabolic Ufi847 Creat 0.5 mg/dL 10/15/2015 Comp Metabolic Mny861 eGFR 156 ml/min/1.73m2 10/15/2015 Comp Metabolic Zpp020 BUN 11 mg/dL 10/15/2015 Comp Metabolic Iyk791 B/C Ratio 20.4 Ratio 10/15/2015 Comp Metabolic Csa442 CALCIUM 9.6 mg/dL 10/15/2015 Comp Metabolic Xny403 ALK PHOS 60 U/L 10/15/2015 Comp Metabolic Orj048 AST(SGOT) 16 U/L 10/15/2015 Comp Metabolic Mnh639 ALT(SGPT) 13 U/L 10/15/2015 Comp Metabolic Kov073 BILI T 0.2 mg/dL 10/15/2015 Comp Metabolic Zte370 ALBUMIN 4.3 g/dL 10/15/2015 Comp Metabolic Uuj712 TPRO 7.6 g/dL 10/15/2015 Comp Metabolic Prn092 GLOB 3.3 g/dL 10/15/2015 Comp Metabolic Gib466 A/G Ratio 1.3 Ratio 10/15/2015 Comp Metabolic Nba359 Osmo 268 mOsmo 10/15/2015 Tsh Ord6 hTSH [...] 27.6 pg 08/11/2015 Cbc With Differential Ord2 Williamson% 10.4 % 08/11/2015 Cbc With Differential Ord2 [...] 2.11 K/ul 08/11/2015 Cbc With Differential Ord2 [place] ABS# 0.6 K/ul 08/11/2015 Cbc With Differential [...] 28.6 pg 04/24/2015 Cbc With Differential Ord2 [place]% 9.7 % 04/24/2015 Cbc With Differential Ord2 [...] 2.05 K/ul 04/24/2015 Cbc With Differential Ord2 Williamson ABS# 0.6 K/ul 04/24/2015 Cbc With Differential [...] Codes Date URINALYSIS NONAUTO W/O SCOPE CPT-4: 13772 02/10/2016 URINALYSIS NONAUTO W/O SCOPE CPT-4: 17698 09/08/2015 Vital Signs Date Vital 08/02/2018 Blood Pressure 1: 120/64 Code: 8480-6 BMI: 30.4 Code: 29898-3 Heart Rate 1: 65 bpm Height: 5'2" SpO2: 98% Weight: 166 lbs 05/26/2016 Blood Pressure 1: 128/84 Code: 8480-6 BMI: 29.1 Code: 70750-7 Heart Rate 1: 73 bpm Height: 5'2" SpO2: 98% Weight: 159 lbs 03/04/2016 Blood Pressure 1: 135/80 Code: 8480-6 Heart Rate 1: 112 bpm SpO2: 98% Temperature: 37.2 (C) / 98.9 (F) Weight: 163 lbs 02/10/2016 Blood Pressure 1: 124/86 Code: 8480-6 BMI: 30.0 Code: 19956-6 Heart Rate 1: 94 bpm Height: 5'2" SpO2: 97% Weight: 164 lbs 01/19/2016 Blood Pressure 1: 122/78 Code: 8480-6 Heart Rate 1: 72 bpm SpO2: 97% Temperature: 37.1 (C) / 98.8 (F) Weight: 163 lbs 11/17/2015 Blood Pressure 1: 136/90 Code: 8480-6 BMI: 29.3 Code: 34684-1 Heart Rate 1: 77 bpm Height: 5'2" SpO2: 98% Weight: 160 lbs 10/14/2015 Blood Pressure 1: 148/86 Code: 8480-6 BMI: 29.1 Code: 92558-4 Heart Rate 1: 89 bpm Height: 5'2" SpO2: 99% Weight: 159 lbs 09/23/2015 Blood Pressure 1: 172/100 Code: 8480-6 Blood Pressure 1: 152/90 Code: 8480-6 BMI: 28.3 Code: 21986-0 Heart Rate 1: 84 bpm Height: 5'2" SpO2: 99% Weight: 155 lbs 06/13/2015 Blood Pressure 1: 130/92 Code: 8480-6 Blood Pressure 1: 130/78 Code: 8480-6 BMI: 26.7 Code: 54506-9 Heart Rate 1: 71 bpm Height: 5'2" SpO2: 98% Weight: 146 lbs 05/21/2015 Blood Pressure 1: 128/80 Code: 8480-6 BMI: 26.2 Code: 31602-3 Heart Rate 1: 73 bpm Height: 5'2" SpO2: 99% Weight: 143 lbs 04/24/2015 Blood Pressure 1: 118/80 Code: 8480-6 BMI: 26.2 Code: 10730-9 Heart Rate 1: 66 bpm Height: 5'2" [...] single episode, moderate[ICD10: F32.1] Niya Kearns MD, [facility] CPT-4: 58006 08/02/2018 42618 EST. PATIENT, LEVEL IV Diagnosis: Other malaise[ICD10: R53.81] Diagnosis: Other specified intestinal infections[ICD10: A08.8] Diagnosis: Gastro-esophageal reflux disease without esophagitis[ICD10: K21.9] Niya Kearns MD, [facility] CPT-4: 66823 05/26/2016 35299 EST. PATIENT, LEVEL III Diagnosis: Cough[ICD10: R05] Diagnosis: Other malaise[ICD10: R53.81] Diagnosis: Influenza due to identified novel influenza A virus with other respiratory manifestations[ICD10: J09.X2] Niya Kearns MD, [facility] CPT-4: 20645 03/04/2016 ([id number]) 26076 EST. PATIENT, LEVEL III Diagnosis: Dysuria[ICD10: R30.0] Diagnosis: Abnormal weight gain[ICD10: R63.5] Diagnosis: Irregular menstruation, unspecified[ICD10: N92.6] Krista Kearns MD, [facility] CPT-4: 57964 02/10/2016 ([id number]) 40839 EST. PATIENT, LEVEL III Diagnosis: Acute recurrent maxillary sinusitis[ICD10: J01.01] Krista Kearns MD, [facility] CPT-4: 90133 01/19/2016 12088 EST. PATIENT, LEVEL III Diagnosis: Generalized anxiety disorder[ICD10: F41.1] Diagnosis: Major depressive disorder, single episode, mild[ICD10: F32.0] Niya Kearns MD, [facility] CPT-4: 02434 11/17/2015 44884 EST. PATIENT, LEVEL III Diagnosis: Other fatigue[ICD10: R53.83] Diagnosis: Abnormal weight gain[ICD10: R63.5] Diagnosis: Other specified anemias[ICD10: D64.89] Niya Kearns MD, [facility] CPT- 4: 44102 10/14/2015 ([id number]) 27428 EST. PATIENT, LEVEL III Diagnosis: Urinary tract infection, site not specified[ICD10: N39.0] Krista Kearns MD, [facility] CPT-4: 32853 09/23/2015 ([id number]) 23977 EST. PATIENT, LEVEL III Diagnosis: Slow transit constipation[ICD10: K59.01] Krista Kearns MD, [facility] CPT-4: 69681 06/13/2015 64219 EST. PATIENT, LEVEL III Diagnosis: Urinary tract infection, site not specified[ICD10: N39.0] [facility] CPT-4: 60142 05/21/2015 ([id number]) PREV VISIT NEW AGE 12-17 Diagnosis: Encounter for routine child health examination with abnormal findings[ICD10: Z00.121] Malathi Kearns MD, [facility] CPT-4: 25625 04/24/2015 Plan of Care Planned Activity Notes [...] this patient. 08/02/2018 Appointment: Niya Riojas WPtel: [address] [place], [place] [phone] (30 min) [facility] 08/02/2018 Patient Education: Patient Medication Summary [...] not improved. 05/26/2016 Appointment: Niya Riojas WPtel: [facility] (15 min) Moderate 05/26/2016 Patient Education: Patient Medication Summary Completed 05/26/2016 Patient Education: Obesity Completed 05/26/2016 Visit Plan: Influenza - pt started on tamiflu - pt to start on anti-inflammatories, tylenol and monitor symptoms. Pt to call if not improving. Pt to alert any close contacts as to illness. 03/04/2016 Appointment: Niya Riojas WPtel: [facility] (30 min) Complex [...] show improvement. 01/19/2016 Appointment: Krista Tee WPtel: [phone] [place] (15 min) Moderate 01/19/2016 Patient Education: Patient Medication Summary Completed 01/19/2016 Appointment: Niya Riojas WPtel: [facility] (30 min) Complex 12/15/2015 Visit Plan: Anxiety [...] this patient. 11/17/2015 App[facility]ment[facility] ([facility] 11/17/2015 Patient Education: Patient Medication Summary [...] iron supplementation. 04/24/2015 Appointment: Malathi [facility]earns WPtel[facility] [facility] 04/24/2015 Patient Education: Patient Medication [...]
--- OUTSIDE RECORDS SUMMARY | 2018-09-18 02:35 | XMS REPORT ---
Author Author LEE ANN CARDONA [facility] Address [address] [place] [address] Care Team Providers Care Horse Trader Name Role Phone LEE ANN CARDONA Unavailable PROBLEMS Type Condition ICD9-CM Code [id number] Code Onset Dates Condition Status SNOMED Code Problem Major depressive disorder, recurrent, moderate F33.1 Active 74657434 Problem Generalized anxiety disorder F41.1 Active 11496350 Problem Rhinitis, unspecified type J31.0 Active 58961712 Problem Anxiety F41.9 Active [id number] ALLERGIES No Information ENCOUNTERS Encounter Location Date Diagnosis [place] [id number] [address] Feb, [facility] [address] [address] Jan, [facility] [address] [address] Dec, Generalized anxiety disorder F41.1 and Major depressive disorder, recurrent, moderate F33.1 [facility] [address] [address] Aug, Acute non-recurrent maxillary sinusitis J01.00 ; Cough R05 and Rhinitis, unspecified type J31.0 [facility] [address] [address] Mar, Anxiety F41.9 [facility] [address] [address] Aug, Dysuria R30.0 ; Acute cystitis with hematuria N30.01 and Renal stones N20.0 [facility] [address] [address] June, [facility] [address] [facility] [id number] [place] [address] June, IMMUNIZATIONS No Known Immunizations SOCIAL HISTORY Never Assessed REASON FOR VISIT Intake PLAN OF CARE Activity Details Follow Up Next Available Reason: F/U VITAL SIGNS MEDICATIONS Unknown Medications RESULTS No Results PROCEDURES Procedure Date Ordered Result Body Site Psych diagnostic evaluation, established patient Jan 18, 2018 INSTRUCTIONS MEDICATIONS ADMINISTERED No Known Medications MEDICAL (GENERAL) HISTORY Type Description Date Medical History anemia Medical History dysmenorrhea Medical History anxiety Medical History depression Surgical History No Surgical history information Hospitalization History No Hospitalization history information
--- OUTSIDE RECORDS SUMMARY | 2018-09-18 02:35 | XMS REPORT ---
Author Author ANTONIO PARRA [facility] Address [address] [place] [address] Care Team Providers Care Spectral Scientist Name Role Phone ANTONIO PARRA Unavailable PROBLEMS Type Condition ICD9-CM Code [id number] Code Onset Dates Condition Status SNOMED Code Problem Rhinitis, unspecified type J31.0 Active 06188397 Problem Anxiety F41.9 Active [id number] ALLERGIES No Known Allergies ENCOUNTERS Encounter Location Date Diagnosis [facility] [address] [address] Aug, Acute non-recurrent maxillary sinusitis J01.00 ; Cough R05 and Rhinitis, unspecified type J31.0 [facility] [address] [address] Mar, Anxiety F41.9 [facility] [address] [address] Aug, Dysuria R30.0 ; Acute cystitis with hematuria N30.01 and Renal stones N20.[address] [address] June, [facility] [address] [address] June, IMMUNIZATIONS No Known Immunizations SOCIAL HISTORY Never Assessed REASON FOR VISIT sore throat, cough, congestion, headache for the past 3 days. [email or web address] PLAN OF CARE Activity Details Follow Up prn Reason: VITAL SIGNS Height 62 in 2017-09-16 Weight 175.4 lbs 2017-09-16 Temperature 97.8 degrees Fahrenheit 2017-09-16 Heart Rate 74 bpm 2017-09-16 Respiratory Rate 20 2017-09-16 BMI 32.08 kg/m2 2017-09-16 Blood pressure systolic 116 mmHg 2017-09-16 Blood pressure diastolic 80 mmHg 2017-09-16 MEDICATIONS Medication Instructions Dosage Frequency Start Date End Date Duration Status PredniSONE 20 mg Orally Once a day 1 tablet 24h Aug, Sep, 05 days Active Microgestin 1.5/30 1.5-30 MG-MCG Orally Once a day 1 tablet 24h Not-Taking Omeprazole 20 MG Orally Once a day 1 capsule 24h Not-Taking Lexapro 10 MG Orally Once a day 1 tablet 24h Active Bactrim DS 800-160 MG Orally Twice a day 1 tablet 12h Aug, Sep, 10 day(s) Active Slow Fe 160 (50 Fe) MG Orally Once a day 1 tablet 24h Not-Taking RESULTS No Results PROCEDURES No Known procedures INSTRUCTIONS MEDICATIONS ADMINISTERED No Known Medications MEDICAL (GENERAL) HISTORY Type Description Date Medical History anemia Medical History dysmenorrhea Medical History anxiety Medical History depression Surgical History No Surgical history information Hospitalization History No Hospitalization history information
--- OUTSIDE RECORDS SUMMARY | 2018-09-18 02:36 | XMS REPORT | Continuity of Care Document ---
Author Organization Unknown Address Unknown Phone Unavailable Allergies Active Description Code Type Severity Reaction Onset Reported/Identified Relationship to Patient Clinical Status Yes NO KNOWN DRUG ALLERGIES UNKNOWN NO KNOWN DRUG ALLERG Yes NO KNOWN DRUG ALLERGIES UNKNOWN UNKNOWN Yes No Known Drug Allergies [id number] Drug Allergy Unknown N/A 04/29/2011 Medications Medication Packaging Start Date Stop Date Route Dosage Sig FENTANYL INJ 100 MCG/2CC VIAL MCG 07/06/2018 07/06/2018 ONCE&1822 KETOROLAC VIAL INJ 30 MG/CC (TORADOL VIAL) MG 09/01/2018 09/01/2018 ONCE&0922 PROMETHAZINE VIAL INJ 25 MG/CC (PHENERGAN VIAL) MG 09/01/2018 09/01/2018 PRN ONCE NORMAL SALINE 1000CC IV BAG INJ 0.9 % (NS 1000CC IV BAG) ml 09/01/2018 09/01/2018 ONCE&0925 BUTALBIT/APAP/CAFF TAB (FIORICET) tab 09/01/2018 09/01/2018 ONCE&0931 KETOROLAC VIAL INJ 30 MG/CC (TORADOL VIAL) MG 09/02/2018 09/02/2018 PRN ONCE NORMAL SALINE 1000CC IV BAG INJ 0.9 % (NS 1000CC IV BAG) ml 09/02/2018 09/17/2018 CONTINUOUSEVERY 0 Hour DEXAMETHASONE VIAL INJ 4 MG/CC (DECADRON VIAL) MG 09/02/2018 09/09/2018 Q6H&0600,1200,1800,2359 PROCHLORPERAZINE VIAL INJ 10 MG/2CC (COMPAZINE VIAL) MG 09/02/2018 09/09/2018 PRN Q6H Problems Date Dx Coded Attending Type Code Diagnosis Diagnosed By 04/29/2011 Ot 599.0 URIN TRACT INFECTION NOS 04/29/2011 Ot 789.09 ABDOMINAL PAIN, OTHER SPECIFIED SITE 07/04/2012 CHRISTINE BATES DO Ot 599.0 URIN TRACT INFECTION NOS 07/04/2012 CHRISTINE BATES DO Ot 780.97 ALTERED MENTAL STATUS 07/04/2012 CHRISTINE BATES DO Ot 786.01 HYPERVENTILATION 05/28/2014 HINA VÁSQUEZ, SHIMA Childs Ot 540.9 ACUTE APPENDICITIS NOS 05/28/2014 HINA VÁSQUEZ, SHIMA Childs Ot 599.0 URIN TRACT INFECTION NOS 06/04/2015 TYLER COFFEY CONTROL DIRECTOR Ot M54.9 06/04/2015 TYLER COFFEY CONTROL DIRECTOR Ot R10.2 07/22/2015 TYLER COFFEY CONTROL DIRECTOR Ot M54.9 DORSALGIA, UNSPECIFIED 07/22/2015 TYLER COFFEY CONTROL DIRECTOR Ot R10.2 PELVIC AND PERINEAL PAIN 02/11/2016 TYLER COFFEY CONTROL DIRECTOR Ot M54.9 DORSALGIA, UNSPECIFIED 02/11/2016 TYLER COFFEY CONTROL DIRECTOR Ot R10.2 PELVIC AND PERINEAL PAIN 02/12/2016 GRAHAM CASTELLANO [employer] DISPATCHER Ot N92.6 IRREGULAR MENSTRUATION, UNSPECIFIED 02/12/2016 GRAHAM CASTELLANO AUTOMOBILE OR [employer]UCK RENTAL DISPATCHER Ot R10.2 PELVIC AND PERINEAL PAIN 02/25/2016 GRAHAM CASTELLANO AUTOMOBILE OR TRUCK RENTAL DISPATCHER Ot N92.6 IRREGULAR MENSTRUATION, UNSPECIFIED 02/25/2016 GRAHAM CASTELLANO AUTOMOBILE OR TRUCK RENTAL DISPATCHER Ot R10.2 PELVIC AND PERINEAL PAIN 03/01/2016 GRAHAM CASTELLANO AUTOMOBILE OR TRUCK RENTAL DISPATCHER Ot N92.6 IRREGULAR MENSTRUATION, UNSPECIFIED 03/01/2016 GRAHAM CASTELLANO AUTOMOBILE OR TRUCK RENTAL DISPATCHER Ot R10.2 PELVIC AND PERINEAL PAIN 06/02/2016 TYLER COFFEY CONTROL DIRECTOR Ot M54.9 DORSALGIA, UNSPECIFIED 06/02/2016 TYLER COFFEY CONTROL DIRECTOR Ot R10.2 PELVIC AND PERINEAL PAIN 06/02/2016 GRAHAM CASTELLANO AUTOMOBILE OR [employer]UCK RENTAL DISPATCHER Ot N92.6 IRREGULAR MENSTRUATION, UNSPECIFIED 06/02/2016 GRAHAM CASTELLANO AUTOMOBILE OR TRUCK RENTAL DISPATCHER Ot R10.2 PELVIC AND PERINEAL PAIN 08/25/2016 TYLER COFFEY CONTROL DIRECTOR Ot M54.9 DORSALGIA, UNSPECIFIED 08/25/2016 TYLER COFFEY CONTROL DIRECTOR Ot R10.2 PELVIC AND PERINEAL PAIN 08/25/2016 GRAHAM CASTELLANO [employer]OM[employer]LE OR [employer]UCK RENTAL DISPATCHER Ot N92.6 IRREGULAR MENSTRUATION, UNSPECIFIED 08/25/2016 GRAHAM CASTELLANO AUTOMO[employer]LE OR [employer]UCK RENTAL DISPATCHER Ot R10.2 PELVIC AND PERINEAL PAIN 08/31/2016 ERLINDAKIRTIE Amadeo CONTROL DIRECTOR Ot M54.9 DORSALGIA, UNSPECIFIED 08/31/2016 ERLINDA TYLER Amadeo CONTROL DIRECTOR Ot R10.2 PELVIC AND PERINEAL PAIN 08/31/2016 GRAHAM CASTELLANO AUTOM[employer] OR [employer] RENTAL DISPATCHER Ot N92.6 IRREGULAR MENSTRUATION, UNSPECIFIED 08/31/2016 NONA GRAHAM Childs [employer]OM[employer]LE OR [employer] RENTAL DISPATCHER Ot R10.2 PELVIC AND PERINEAL PAIN 09/13/2016 KIRT COFFEYIE Amadeo CONTROL DIRECTOR Ot M54.9 DORSALGIA, UNSPECIFIED 09/13/2016 TYLER COFFEY CONTROL DIRECTOR Ot R10.2 PELVIC AND PERINEAL PAIN 09/13/2016 NONA GRAHAM Childs [employer]OM[employer]LE OR [employer] RENTAL DISPATCHER Ot N92.6 IRREGULAR MENSTRUATION, UNSPECIFIED 09/13/2016 NONA GRAHAM Amadeo [employer]OM[employer] OR [employer] RENTAL DISPATCHER Ot R10.2 PELVIC AND PERINEAL PAIN 09/13/2016 SHADE MCMAHON MD Ot Z36 ENCOUNTER FOR SCREENING OF MOT 09/13/2016 SHADE MCMAHON MD, Ot Z3A.19 19 WEEKS GESTATION OF 09/13/2016 SHADE MCMAHON MD Ot Z36 ENCOUNTER FOR SCREENING OF MOT 09/13/2016 SHADE MCMAHON MD, Ot Z3A.19 19 WEEKS GESTATION OF 09/14/2016 DAVID JENKINS MD, Ot B96.20 UNSP ESCHERICHIA COLI THE CAUSE OF DI 09/14/2016 DAVID JENKINS MD, Ot E03.9 HYPOTHYROIDISM, UNSPECIFIED 09/14/2016 DAVID JENKINS MD, Ot N12 TUBULO-INTERSTITIAL NEPHRITIS, NOT SPCF 09/14/2016 DAVID JENKINS MD, Ot O23.02 INFECTIONS OF KIDNEY IN , SECON 09/14/2016 DAVID JENKINS MD, Ot O99.282 ENDO, NUTRITIONAL AND METAB DISEASES COM 09/14/2016 DAVID JENKINS MD, Ot Z3A.21 21 WEEKS GESTATION OF 09/14/2016 DAVID JENKINS MD, Ot B96.20 UNSP ESCHERICHIA COLI THE CAUSE OF DI 09/14/2016 DAVID JENKINS MD, Ot E03.9 HYPOTHYROIDISM, UNSPECIFIED 09/14/2016 DAVID JENKINS MD Ot N12 TUBULO-INTERSTITIAL NEPHRITIS, NOT SPCF 09/14/2016 DAVID JENKINS MD, Ot O23.02 INFECTIONS OF KIDNEY IN , SECON 09/14/2016 DAVID JENKINS MD, Ot O99.282 ENDO, NUTRITIONAL AND METAB DISEASES COM 09/14/2016 DAVID JENKINS MD, Ot Z3A.21 21 WEEKS GESTATION OF 10/26/2016 DUNCAN DO CAROLYN C Ot Z36 ENCOUNTER FOR SCREENING OF MOT 10/26/2016 SONG DO CAROLYN C Ot Z3A.24 24 WEEKS GESTATION OF 11/23/2016 GRAHAM CASTELLANO AUTOM[employer]LE OR [employer] RENTAL DISPATCHER Ot N92.6 IRREGULAR MENSTRUATION, UNSPECIFIED 11/23/2016 GRAHAM CASTELLANO AUTOMOBILE OR [employer]UCK RENTAL DISPATCHER Ot R10.2 PELVIC AND PERINEAL PAIN 11/23/2016 SHADE MCMAHON MD N Ot Z36 ENCOUNTER FOR SCREENING OF MOT 11/23/2016 SHADE MCMAHON MD N Ot Z3A.19 19 WEEKS GESTATION OF 11/23/2016 DUNCAN DO CAROLYN C Ot Z36 ENCOUNTER FOR SCREENING OF MOT 11/23/2016 SONG DO CAROLYN C Ot Z3A.24 24 WEEKS GESTATION OF 11/23/2016 GRAHAM CASTELLANO AUTOM[employer]LE OR [employer] RENTAL DISPATCHER Ot N92.6 IRREGULAR MENSTRUATION, UNSPECIFIED 11/23/2016 GRAHAM CASTELLANO AUTOMOBILE OR TRUCK RENTAL DISPATCHER Ot R10.2 PELVIC AND PERINEAL PAIN 11/23/2016 SHADE MCMAHON MD N Ot Z36 ENCOUNTER FOR SCREENING OF MOT 11/23/2016 SHADE MCMAHON MD N Ot Z3A.19 19 WEEKS GESTATION OF 11/23/2016 SONG DO CAROLYN C Ot Z36 ENCOUNTER FOR SCREENING OF MOT 11/23/2016 SONG DO CAROLYN C Ot Z3A.24 24 WEEKS GESTATION OF 12/03/2016 SONG DO CAROLYN C Ot Z36 ENCOUNTER FOR SCREENING OF MOT 12/03/2016 SONG DO CAROLYN C Ot Z3A.24 24 WEEKS GESTATION OF 12/13/2016 SHADE MCMAHON MD N Ot Z36 ENCOUNTER FOR SCREENING OF MOT 12/13/2016 SHADE MCMAHON MD Ot Z3A.19 19 WEEKS GESTATION OF 12/31/2016 ROMULO BRITT DO Ot O13.3 GESTATIONAL HTN W/O SIGNIFICANT PROTEINU 12/31/2016 ROMULO BRITT DO Ot R10.32 LEFT LOWER QUADRANT PAIN 12/31/2016 ROMULO BRITT DO Ot Z3A.36 36 WEEKS GESTATION OF 01/05/2017 ROMULO BRITT DO Ot O13.3 GESTATIONAL HTN W/O SIGNIFICANT PROTEINU 01/05/2017 ROMULO BRITT DO Ot R10.32 LEFT LOWER QUADRANT PAIN 01/05/2017 ROMULO BRITT DO Ot Z3A.36 36 WEEKS GESTATION OF 01/07/2017 ROMULO BRITT DO Ot O13.3 GESTATIONAL HTN W/O SIGNIFICANT PROTEINU 01/07/2017 ROMULO BRITT DO Ot R10.32 LEFT LOWER QUADRANT PAIN 01/07/2017 ROMULO BRITT DO Ot Z3A.36 36 WEEKS GESTATION OF 01/20/2017 LORENZA BURNS ROMULO Rhoades Ot D62 ACUTE POSTHEMORRHAGIC ANEMIA 01/20/2017 LORENZA BURNS ROMULO Rhoades Ot E02 SUBCLINICAL IODINE-DEFICIENCY HYPOTHYROI 01/20/2017 LORENZA BURNS ROMULO Rhoades Ot F32.9 MAJOR DEPRESSIVE DISORDER, SINGLE EPISOD 01/20/2017 LOREZNA BURNS ROMULO Rhoades Ot O13.4 GESTATNL HTN WITHOUT SIGNIFICANT PROTEIN 01/20/2017 LORENZA BURNS ROMULO Rhoades Ot O45.93 PREMATURE SEPARATION OF PLACENTA, UNSP, 01/20/2017 LORENZA BURNS ROMULO Rhoades Ot O90.81 ANEMIA OF THE PUERPERIUM 01/20/2017 LORENZA BURNS ROMULO Rhoades Ot O99.284 ENDOCRINE, NUTRITIONAL AND METABOLIC DIS 01/20/2017 LORENZA BURNS ROMULO Rhoades Ot O99.344 OTHER MENTAL DISORDERS COMPLICATING CHIL 01/20/2017 LORENZA BURNS ROMULO Rhoades Ot Z23 ENCOUNTER FOR IMMUNIZATION 01/20/2017 LORENZA BURNS ROMULO Rhoades Ot Z37.0 SINGLE LIVE 01/20/2017 LORENZA BURNS ROMULO Rhoades Ot Z3A.39 39 WEEKS GESTATION OF 07/01/2017 TYLER COFFEY APRN Ot M54.9 DORSALGIA, UNSPECIFIED 07/01/2017 TYLER COFFEY APRN Ot R10.2 PELVIC AND PERINEAL PAIN 07/01/2017 GRAHAM CASTELLANO AUTOMOBILE OR [employer] RENTAL DISPATCHER Ot N92.6 IRREGULAR MENSTRUATION, UNSPECIFIED 07/01/2017 GRAHAM CASTELLANO AUTOMOBILE OR [employer]UCK RENTAL DISPATCHER Ot R10.2 PELVIC AND PERINEAL PAIN 07/01/2017 LISANDRO VÁSQUEZ, SHADE Arzola Ot Z36 ENCOUNTER FOR SCREENING OF MOT 07/01/2017 LISANDRO VÁSQUEZ, SHADE Arzola Ot Z3A.19 19 WEEKS GESTATION OF 07/01/2017 OSNG DO CAROLYN C Ot Z36 ENCOUNTER FOR SCREENING OF MOT 07/01/2017 SONG DO CAROLYN C Ot Z3A.24 24 WEEKS GESTATION OF 07/06/2018 LEISURE, LYNIETA W 813.41 FRACTURE, CLOSED, COLLES' 07/06/2018 LEISURE, LYNIETA W S52.532A COLLES' FRACTURE OF LEFT RADIUS, INIT FOR CLOS FX 07/06/2018 LEISURE, LYNIETA W 719.43 PAIN IN JOINT INVOLVING FOREARM 07/06/2018 LEISURE, LYNIETA W M25.539 PAIN IN UNSPECIFIED WRIST 07/06/2018 LEISURE, LYNIETA W 719.43 PAIN IN JOINT INVOLVING FOREARM 07/06/2018 LEISURE, LYNIETA W M25.539 PAIN IN UNSPECIFIED WRIST 09/01/2018 HowDelta iqbal W 784.0 HEADACHE 09/01/2018 [employer] iqbal W R51 HEADACHE 09/02/2018 LEISURE, LYNIETA W 784.0 HEADACHE 09/02/2018 LEISURE, LYNIETA W R51 HEADACHE 09/14/2018 TYLER COFFEY CONTROL DIRECTOR Ot M54.9 DORSALGIA, UNSPECIFIED 09/14/2018 TYLER COFFEY CONTROL DIRECTOR Ot R10.2 PELVIC AND PERINEAL PAIN 09/14/2018 GRAHAM CASTELLANO AUTOMOBILE OR [employer]UCK RENTAL DISPATCHER Ot N92.6 IRREGULAR MENSTRUATION, UNSPECIFIED 09/14/2018 GRAHAM CASTELLANO AUTOMOBILE OR [employer]UCK RENTAL DISPATCHER Ot R10.2 PELVIC AND PERINEAL PAIN 09/14/2018 LISANDRO VÁSQUEZ, SHADE N Ot Z36 ENCOUNTER FOR SCREENING OF MOT 09/14/2018 SHADE MCMAHON MD Ot Z3A.19 19 WEEKS GESTATION OF 09/14/2018 SONG DO CAROLYN C Ot Z36 ENCOUNTER FOR SCREENING OF MOT 09/14/2018 DUNCAN DO CAROLYN C Ot Z3A.24 24 WEEKS GESTATION OF Procedures Code Description Performed By Performed On [id number] EXTRACTION OF POC, LOW CERVICAL, OPEN AP 01/17/2017 Results Test Result Range Complete urinalysis with reflex to culture - 09/13/16 15:52 Urine color determination YELLOW NRG Urine clarity determination SLIGHTLY CLOUDY NRG Urine pH measurement by test strip 6 5-9 Specific gravity of urine by test strip 1.025 1.016-1.022 Urine protein assay by test strip, semi-quantitative 3+ NEGATIVE Urine glucose detection by automated test strip NEGATIVE NEGATIVE Erythrocytes detection in urine sediment by light microscopy 3+ NEGATIVE Urine ketones detection by automated test strip 4+ NEGATIVE Urine nitrite detection by test strip POSITIVE NEGATIVE Urine total bilirubin detection by test strip NEGATIVE NEGATIVE Urine urobilinogen measurement by automated test strip (mass/volume) NORMAL NORMAL Urine leukocyte esterase detection by dipstick 3+ NEGATIVE Automated urine sediment erythrocyte count by microscopy (number/high power field) [HPF] NRG Automated urine sediment leukocyte count by microscopy (number/high power field) TNTC NRG Bacteria detection in urine sediment by light microscopy LARGE NRG Crystals detection in urine sediment by light microscopy NONE NRG Casts detection in urine sediment by light microscopy NONE NRG Mucus detection in urine sediment by light microscopy NEGATIVE NRG Complete urinalysis with reflex to culture YES NRG Bacterial urine culture - 09/13/16 15:52 Bacterial urine culture [id number] NRG COLONY COUNT >100,000/ML NRG FTX;REPORTABLE SENSITIVITY REPORTED 09/15/16 7:45 NRG Bacterial susceptibility panel - 09/13/16 15:52 Gentamicin susceptibility test by minimum inhibitory concentration <= NRG Trimethoprim/sulfamethoxazole susceptibility test by minimum inhibitoryconcentration <= NRG Ampicillin susceptibility test by minimum inhibitory concentration <= NRG Tobramycin susceptibility test by minimum inhibitory concentration <= NRG Cefazolin susceptibility test by minimum inhibitory concentration <= NRG Ceftriaxone susceptibility test by minimum inhibitory concentration <= NRG Ampicillin/sulbactam susceptibility test by minimum inhibitory concentration <= NRG Piperacillin/tazobactam susceptibility test by minimum inhibitory concentration <= NRG Ciprofloxacin susceptibility test by minimum inhibitory concentration <= NRG Meropenem susceptibility test by minimum inhibitory concentration <= NRG Nitrofurantoin susceptibility test by minimum inhibitory concentration 32 NRG Aztreonam susceptibility test by minimum inhibitory concentration <= NRG Extended spectrum beta lactamase (ESBL) producing bacteria susceptibility test by minimum inhibitory concentration - NR Complete blood count (CBC) with automated white blood cell (WBC) differential - 09/13/16 16:10 Blood leukocytes automated count (number/volume) 13.9 10*3/uL 4.3-11.0 Blood erythrocytes automated count (number/volume) 3.69 10*6/uL 4.35-5.85 Venous blood hemoglobin measurement (mass/volume) 11.5 g/dL 11.5-16.0 Blood hematocrit (volume fraction) 33 % 35-52 Automated erythrocyte mean corpuscular volume 90 [foz_us] 80-99 Automated erythrocyte mean corpuscular hemoglobin (mass per erythrocyte) 31 pg 25-34 Automated erythrocyte mean corpuscular hemoglobin concentration measurement (mass/volume) 35 g/dL 32-36 Automated erythrocyte distribution width ratio 13.3 % 10.0- 14.5 Automated blood platelet count (count/volume) 252 10*3/uL 130-400 Automated blood platelet mean volume measurement 10.6 [foz_us] 7.4-10.4 Automated blood neutrophils/100 leukocytes 84 % 42-75 Automated blood lymphocytes/100 leukocytes 10 % 12-44 Blood monocytes/100 leukocytes 6 % 0-12 Automated blood eosinophils/100 leukocytes 0 % 0-10 Automated blood basophils/100 leukocytes 0 % 0-10 Blood neutrophils automated count (number/volume) 11.7 10*3 1.8-7.8 Blood lymphocytes automated count (number/volume) 1.4 10*3 1.0-4.0 Blood monocytes automated count (number/volume) 0.8 10*3 0.0- 1.0 Automated eosinophil count 0.0 10*3/uL 0.0-0.3 Automated blood basophil count (count/volume) 0.0 10*3/uL 0.0-0.1 Comprehensive metabolic panel - 09/13/16 16:10 Serum or plasma sodium measurement (moles/volume) 137 mmol/L 135-145 Serum or plasma potassium measurement (moles/volume) 3.6 mmol/L 3.6-5.0 Serum or plasma chloride measurement (moles/volume) 105 mmol/L 98-107 Carbon dioxide 19 mmol/L 21-32 Serum or plasma anion gap determination (moles/volume) 13 mmol/L 5-14 Serum or plasma urea nitrogen measurement (mass/volume) 8 mg/dL 7-18 Serum or plasma creatinine measurement (mass/volume) 0.56 mg/dL 0.60-1.30 Serum or plasma urea nitrogen/creatinine mass ratio 14 NRG Serum or plasma creatinine measurement with calculation of estimated glomerular filtration rate > NRG Serum or plasma glucose measurement (mass/volume) 81 mg/dL 70-105 Serum or plasma calcium measurement (mass/volume) 9.2 mg/dL 8.5-10.1 Serum or plasma total bilirubin measurement (mass/volume) 0.3 mg/dL 0.1-1.0 Serum or plasma alkaline phosphatase measurement (enzymatic activity/volume) 75 U/L 40-136 Serum or plasma aspartate aminotransferase measurement (enzymatic activity/volume) 23 U/L 5-34 Serum or plasma alanine aminotransferase measurement (enzymatic activity/volume) 22 U/L 0-55 Serum or plasma protein measurement (mass/volume) 7.4 g/dL 6.4-8.2 Serum or plasma albumin measurement (mass/volume) 3.9 g/dL 3.2-4.5 Urine protein/creatinine mass ratio - 12/31/16 15:45 Urine protein measurement (mass/volume) < mg/dL 6-12 Urine creatinine measurement (mass/volume) 20 mg/dL 30-125 Urine protein/creatinine mass ratio TNP NRG Complete urinalysis with reflex to culture - 12/31/16 15:45 Urine color determination YELLOW NRG Urine clarity determination CLEAR NRG Urine pH measurement by test strip 7 5-9 Specific gravity of urine by test strip 1.005 1.016-1.022 Urine protein assay by test strip, semi-quantitative NEGATIVE NEGATIVE Urine glucose detection by automated test strip NEGATIVE NEGATIVE Erythrocytes detection in urine sediment by light microscopy NEGATIVE NEGATIVE Urine ketones detection by automated test strip NEGATIVE NEGATIVE Urine nitrite detection by test strip NEGATIVE NEGATIVE Urine total bilirubin detection by test strip NEGATIVE NEGATIVE Urine urobilinogen measurement by automated test strip (mass/volume) NORMAL NORMAL Urine leukocyte esterase detection by dipstick NEGATIVE NEGATIVE Automated urine sediment erythrocyte count by microscopy (number/high power field) NONE NRG Automated urine sediment leukocyte count by microscopy (number/high power field) [HPF] NRG Bacteria detection in urine sediment by light microscopy FEW NRG Squamous epithelial cells detection in urine sediment by light microscopy 25-50 NRG Crystals detection in urine sediment by light microscopy NONE NRG Casts detection in urine sediment by light microscopy NONE NRG Mucus detection in urine sediment by light microscopy NEGATIVE NRG Complete urinalysis with reflex to culture NO NRG Complete blood count (CBC) with automated white blood cell (WBC) differential - 12/31/16 16:10 Blood leukocytes automated count (number/volume) 9.1 10*3/uL 4.3-11.0 Blood erythrocytes automated count (number/volume) 3.94 10*6/uL 4.35-5.85 Venous blood hemoglobin measurement (mass/volume) 11.9 g/dL 11.5-16.0 Blood hematocrit (volume fraction) 35 % 35-52 Automated erythrocyte mean corpuscular volume 88 [foz_us] 80-99 Automated erythrocyte mean corpuscular hemoglobin (mass per erythrocyte) 30 pg 25-34 Automated erythrocyte mean corpuscular hemoglobin concentration measurement (mass/volume) 34 g/dL 32-36 Automated erythrocyte distribution width ratio 12.6 % 10.0- 14.5 Automated blood platelet count (count/volume) 259 10*3/uL 130-400 Automated blood platelet mean volume measurement 10.9 [foz_us] 7.4-10.4 Automated blood neutrophils/100 leukocytes 65 % 42-75 Automated blood lymphocytes/100 leukocytes 23 % 12-44 Blood monocytes/100 leukocytes 11 % 0-12 Automated blood eosinophils/100 leukocytes 1 % 0-10 Automated blood basophils/100 leukocytes 0 % 0-10 Blood neutrophils automated count (number/volume) 5.9 10*3 1.8-7.8 Blood lymphocytes automated count (number/volume) 2.1 10*3 1.0-4.0 Blood monocytes automated count (number/volume) 1.0 10*3 0.0- 1.0 Automated eosinophil count 0.1 10*3/uL 0.0-0.3 Automated blood basophil count (count/volume) 0.0 10*3/uL 0.0-0.1 Comprehensive metabolic panel - 12/31/16 16:10 Serum or plasma sodium measurement (moles/volume) 140 mmol/L 135-145 Serum or plasma potassium measurement (moles/volume) 3.8 mmol/L 3.6-5.0 Serum or plasma chloride measurement (moles/volume) 109 mmol/L 98-107 Carbon dioxide 20 mmol/L 21-32 Serum or plasma anion gap determination (moles/volume) 11 mmol/L 5-14 Serum or plasma urea nitrogen measurement (mass/volume) 8 mg/dL 7-18 Serum or plasma creatinine measurement (mass/volume) 0.55 mg/dL 0.60-1.30 Serum or plasma urea nitrogen/creatinine mass ratio 15 NRG Serum or plasma creatinine measurement with calculation of estimated glomerular filtration rate > NRG Serum or plasma glucose measurement (mass/volume) 89 mg/dL 70-105 Serum or plasma calcium measurement (mass/volume) 9.1 mg/dL 8.5-10.1 Serum or plasma total bilirubin measurement (mass/volume) 0.1 mg/dL 0.1-1.0 Serum or plasma alkaline phosphatase measurement (enzymatic activity/volume) 156 U/L 40-136 Serum or plasma aspartate aminotransferase measurement (enzymatic activity/volume) 21 U/L 5-34 Serum or plasma alanine aminotransferase measurement (enzymatic activity/volume) 19 U/L 0-55 Serum or plasma protein measurement (mass/volume) 6.8 g/dL 6.4-8.2 Serum or plasma albumin measurement (mass/volume) 3.5 g/dL 3.2-4.5 Serum or plasma uric acid measurement (mass/volume) - 12/31/16 16:10 Serum or plasma uric acid measurement (mass/volume) 5.7 mg/dL 2.6-7.2 Complete blood count (CBC) with automated white blood cell (WBC) differential - 01/16/17 18:05 Blood leukocytes automated count (number/volume) 11.7 10*3/uL 4.3-11.0 Blood erythrocytes automated count (number/volume) 4.22 10*6/uL 4.35-5.85 Venous blood hemoglobin measurement (mass/volume) 12.8 g/dL 11.5-16.0 Blood hematocrit (volume fraction) 37 % 35-52 Automated erythrocyte mean corpuscular volume 87 [foz_us] 80-99 Automated erythrocyte mean corpuscular hemoglobin (mass per erythrocyte) 30 pg 25-34 Automated erythrocyte mean corpuscular hemoglobin concentration measurement (mass/volume) 35 g/dL 32-36 Automated erythrocyte distribution width ratio 13.5 % 10.0- 14.5 Automated blood platelet count (count/volume) 235 10*3/uL 130-400 Automated blood platelet mean volume measurement 12.0 [foz_us] 7.4-10.4 Automated blood neutrophils/100 leukocytes 72 % 42-75 Automated blood lymphocytes/100 leukocytes 19 % 12-44 Blood monocytes/100 leukocytes 9 % 0-12 Automated blood eosinophils/100 leukocytes 0 % 0-10 Automated blood basophils/100 leukocytes 0 % 0-10 Blood neutrophils automated count (number/volume) 8.4 10*3 1.8-7.8 Blood lymphocytes automated count (number/volume) 2.2 10*3 1.0-4.0 Blood monocytes automated count (number/volume) 1.0 10*3 0.0- 1.0 Automated eosinophil count 0.0 10*3/uL 0.0-0.3 Automated blood basophil count (count/volume) 0.0 10*3/uL 0.0-0.1 Complete urinalysis with reflex to culture - 01/16/17 18:05 Urine color determination YELLOW NRG Urine clarity determination CLEAR NRG Urine pH measurement by test strip 6 5-9 Specific gravity of urine by test strip 1.015 1.016-1.022 Urine protein assay by test strip, semi-quantitative 1+ NEGATIVE Urine glucose detection by automated test strip NEGATIVE NEGATIVE Erythrocytes detection in urine sediment by light microscopy NEGATIVE NEGATIVE Urine ketones detection by automated test strip 2+ NEGATIVE Urine nitrite detection by test strip NEGATIVE NEGATIVE Urine total bilirubin detection by test strip NEGATIVE NEGATIVE Urine urobilinogen measurement by automated test strip (mass/volume) NORMAL NORMAL Urine leukocyte esterase detection by dipstick 1+ NEGATIVE Automated urine sediment erythrocyte count by microscopy (number/high power field) NONE NRG Automated urine sediment leukocyte count by microscopy (number/high power field) [HPF] NRG Bacteria detection in urine sediment by light microscopy FEW NRG Squamous epithelial cells detection in urine sediment by light microscopy 10-25 NRG Crystals detection in urine sediment by light microscopy NONE NRG Casts detection in urine sediment by light microscopy NONE NRG Mucus detection in urine sediment by light microscopy SMALL NRG Complete urinalysis with reflex to culture NO NRG Urine protein/creatinine mass ratio - 01/16/17 18:05 Urine protein measurement (mass/volume) 19 mg/dL 6-12 Urine creatinine measurement (mass/volume) 95 mg/dL 30-125 Urine protein/creatinine mass ratio 0.20 NRG Comprehensive metabolic panel - 01/16/17 18:05 Serum or plasma sodium measurement (moles/volume) 139 mmol/L 135-145 Serum or plasma potassium measurement (moles/volume) 3.9 mmol/L 3.6-5.0 Serum or plasma chloride measurement (moles/volume) 106 mmol/L 98-107 Carbon dioxide 21 mmol/L 21-32 Serum or plasma anion gap determination (moles/volume) 12 mmol/L 5-14 Serum or plasma urea nitrogen measurement (mass/volume) 10 mg/dL 7-18 Serum or plasma creatinine measurement (mass/volume) 0.67 mg/dL 0.60-1.30 Serum or plasma urea nitrogen/creatinine mass ratio 15 NRG Serum or plasma creatinine measurement with calculation of estimated glomerular filtration rate > NRG Serum or plasma glucose measurement (mass/volume) 77 mg/dL 70-105 Serum or plasma calcium measurement (mass/volume) 9.8 mg/dL 8.5-10.1 Serum or plasma total bilirubin measurement (mass/volume) 0.3 mg/dL 0.1-1.0 Serum or plasma alkaline phosphatase measurement (enzymatic activity/volume) 176 U/L 40-136 Serum or plasma aspartate aminotransferase measurement (enzymatic activity/volume) 29 U/L 5-34 Serum or plasma alanine aminotransferase measurement (enzymatic activity/volume) 18 U/L 0-55 Serum or plasma protein measurement (mass/volume) 8.0 g/dL 6.4-8.2 Serum or plasma albumin measurement (mass/volume) 3.9 g/dL 3.2-4.5 Serum or plasma uric acid measurement (mass/volume) - 01/16/17 18:05 Serum or plasma uric acid measurement (mass/volume) 7.4 mg/dL 2.6-7.2 Blood type T Indirect antibody screen panel - 01/16/17 18:05 ABO+Rh group AP [facility] Transfusion band number [id number] [facility] Blood group antibody screen NEGATIVE [facility] Complete blood count (CBC) with automated white blood cell (WBC) differential - 01/18/17 05:51 Blood leukocytes automated count (number/volume) 11.1 10*3/uL 4.3-11.0 Blood erythrocytes automated count (number/volume) 2.71 10*6/uL 4.35-5.85 Venous blood hemoglobin measurement (mass/volume) 8.2 g/dL 11.5-16.0 Blood hematocrit (volume fraction) 24 % 35-52 Automated erythrocyte mean corpuscular volume 90 [foz_us] 80-99 Automated erythrocyte mean corpuscular hemoglobin (mass per erythrocyte) 30 pg 25-34 Automated erythrocyte mean corpuscular hemoglobin concentration measurement (mass/volume) 34 g/dL 32-36 Automated erythrocyte distribution width ratio 13.4 % 10.0- 14.5 Automated blood platelet count (count/volume) 196 10*3/uL 130-400 Automated blood platelet mean volume measurement 11.9 [foz_us] 7.4-10.4 Automated blood neutrophils/100 leukocytes 60 % 42-75 Automated blood lymphocytes/100 leukocytes 28 % 12-44 Blood monocytes/100 leukocytes 11 % 0-12 Automated blood eosinophils/100 leukocytes 0 % 0-10 Automated blood basophils/100 leukocytes 0 % 0-10 Blood neutrophils automated count (number/volume) 6.7 10*3 1.8-7.8 Blood lymphocytes automated count (number/volume) 3.1 10*3 1.0-4.0 Blood monocytes automated count (number/volume) 1.3 10*3 0.0- 1.0 Automated eosinophil count 0.0 10*3/uL 0.0-0.3 Automated blood basophil count (count/volume) 0.0 10*3/uL 0.0-0.1 Test-Urine - 09/01/18 08:39 Preg Test-U Negative Negative EKG - 09/02/18 09:38 EKG Complete Encounters ACCT No. Visit Date/Time Discharge Status Pt. Type Provider Facility Loc./Unit Complaint [id number] 09/02/2018 08:51:00 09/02/2018 10:48:00 [id number] 09/01/2018 08:08:00 09/01/2018 10:26:00 DIS Outpatient Cinthia [facility] ER [id number] 08/16/2018 08:40:00 08/16/2018 23:59:00 DIS Outpatient JELANI HERNANDEZ [id number] 07/19/2018 08:44:00 07/19/2018 23:59:00 DIS Outpatient JELANI HERNANDEZ [id number] 07/06/2018 17:47:00 07/06/2018 19:05:00 [id number] 07/06/2018 18:22:32 Document Registration [id number] 04/16/2009 00:00:00 04/16/2009 23:59:59 CLS Outpatient DEJAN MEHTA [id number] 07/04/2018 19:20:00 07/04/2018 23:59:59 CLS Outpatient [facility] [id number] 09/14/2018 13:57:00 09/14/2018 23:59:59 CLS Outpatient TYLER COFFEY APRN [facility] RAD MIGRAINE HEADACHES [id number] 01/16/2017 19:15:00 01/20/2017 15:30:00 DIS Inpatient PAIGEROMULO AGRAWAL DO S [facility] LDRP IOL,HTN [id number] 12/31/2016 15:15:00 12/31/2016 17:24:00 DIS Outpatient ROMULO BRITT DO [facility] WSo ELEVATED BP, ABDOMINAL PAIN [id number] 10/08/2016 09:46:00 10/08/2016 23:59:59 CLS Outpatient CAROLYN SONG DO [facility] RAD Z36 REPEAT ANATOMY VIEWS [id number] 09/13/2016 15:03:00 09/14/2016 08:20:00 DIS Outpatient DAVID JENKINS MD [facility] WSo LOWER STOMACH/BACK PAIN [id number] 08/31/2016 14:49:00 08/31/2016 23:59:59 CLS Outpatient LISANDRO VÁSQUEZ, SHADE Arzola [facility] RAD VISIT FOR SCREENING Z36 [id number] 02/11/2016 09:23:00 02/11/2016 23:59:59 CLS Outpatient GRAHAM CASTELLANO [employer] [facility] RAD PELVIC PAIN,ABN PERIODS [id number] 05/21/2015 12:22:00 05/21/2015 23:59:59 CLS Outpatient TYLER COFFEY APRN [facility] RAD PELVIC PAIN,CVA PAIN [id number] 05/27/2014 22:11:00 05/28/2014 16:00:00 DIS Outpatient SHIMA SANTAMARIA MD [facility] ACUTE APPENDICITIS, UTI [id number] 07/04/2012 21:44:00 07/04/2012 23:35:00 DIS Emergency CHRISTINE BATES DO [facility] ER SOA [id number] 04/29/2011 11:52:00 Document Registration
--- NOTE | 2018-09-18 02:45 | NUR ---
WENT TO GET PATIENT FROM WAITING ROOM AND SHE HAD LEFT A MESSAGE WITH [facility] AT REGISTRATION THAT SHE DIDNT FEEL LIKE WAITING.
== END 2018-09-18 02:45 | disposition left against medical advice (07) ==
LOC: EDUNIT# 02:22 → ER 02:24
DX: M54.9 Dorsalgia, unspecified (principal); R10.9 Unspecified abdominal pain

== ENCOUNTER 2018-09-18 18:53 | Emergency (ER) | payer BC ==
[~2018-09-18] VITALS: Ht 154.9 cm; Wt 71.7 kg
[2018-09-18] MEDS ORDERED: NS IV 1000 ML 1,000 ML IV SCH ×2 (20:08→21:10)
[2018-09-18 20:12] LABS: BILIRUBIN,URINE NEGATIVE (NEGATIVE); CLARITY,URINE CLEAR; COLOR,URINE YELLOW; GLUCOSE, URINE (UA) NEGATIVE (NEGATIVE); KETONES,URINE 3+ (NEGATIVE); LEUKOCYTE ESTERASE ,URINE NEGATIVE (NEGATIVE); NITRITE,URINE NEGATIVE (NEGATIVE); PH,URINE 6 (5-9); PROTEIN,URINE NEGATIVE (NEGATIVE); UROBILINOGEN,URINE NORMAL (NORMAL)
[2018-09-18 20:15] LABS: BACTERIA,URINE TRACE /HPF; WBC,URINE 0-2 /HPF
[2018-09-18 20:25] LABS: BASOPHILS % (AUTO) 0 % (0-10); EOSINOPHILS # (AUTO) 0.1 10^3/uL (0.0-0.3); EOSINOPHILS % (AUTO) 1 % (0-10); HEMATOCRIT 40 % (35-52); HEMOGLOBIN 13.4 G/DL (11.5-16.0); LYMPHOCYTES % (AUTO) 22 % (12-44); MEAN CORPUSCULAR HEMOGLOBIN 29 PG (25-34); MEAN CORPUSCULAR HGB CONC 34 G/DL (32-36); MEAN CORPUSCULAR VOLUME 86 FL (80-99); MEAN PLATELET VOLUME 10.8 FL (7.4-10.4); MONOCYTES # (AUTO) 0.8 X 10^3 (0.0-1.0); MONOCYTES % (AUTO) 9 % (0-12); NEUTROPHILS # (AUTO) 6.3 X 10^3 (1.8-7.8); NEUTROPHILS % (AUTO) 68 % (42-75); PLATELET COUNT 300 10^3/uL (130-400); RED CELL DISTRIBUTION WIDTH 13.1 % (10.0-14.5); WHITE BLOOD COUNT 9.2 10^3/uL (4.3-11.0)
[2018-09-18 20:45] LABS: ALANINE AMINOTRANSFERASE 22 U/L (0-55); ALBUMIN 5.1 GM/DL (3.2-4.5); ALKALINE PHOSPHATASE 113 U/L (40-136); AMYLASE 40 U/L (25-125); BILIRUBIN,TOTAL 0.3 MG/DL (0.1-1.0); BUN/CREATININE RATIO 13; CALCIUM 10.3 MG/DL (8.5-10.1); CARBON DIOXIDE 18 MMOL/L (21-32); CHLORIDE 105 MMOL/L (98-107); CREATININE SERUM 0.87 MG/DL (0.60-1.30); GFR ESTIMATED > 60; GLUCOSE 93 MG/DL (70-105); LIPASE 39 U/L (8-78); POTASSIUM 3.5 MMOL/L (3.6-5.0); SODIUM 139 MMOL/L (135-145); TOTAL PROTEIN 8.8 GM/DL (6.4-8.2)
[2018-09-18] MEDS ORDERED: KETOROLAC 30 MG/ML VIAL IVP ONE (20:45)
[2018-09-18] MEDS ORDERED: ONDANSETRON 4 MG/2 ML (SDV) Z0FRAN IVP ONE (20:45)
[2018-09-18] MEDS ORDERED: fentaNYL INJECTION 100 MCG/2 ML AMP ONE (21:17)
[2018-09-18] MEDS ORDERED: fentaNYL INJECTION 100 MCG/2 ML AMP IVP PRN (21:30)
[2018-09-18] MEDS ORDERED: RX-ONDANSETRON 4 MG ODT (ZOFRAN) PPK #4 PO STA (21:44)
[2018-09-18] MEDS ORDERED: RX-HYDROCODONE/APAP 5/325 MG #4 TAB PK PO PRN (21:45)
--- NOTE | 2018-09-18 21:51 | ED Abdominal Pain ---
General Chief Complaint: Abdominal/GI Problems Stated Complaint: ABD PAIN Nursing Triage Note: PT AMB TO TRIAGE WITH COMPLAINT OF RUQ ABD PAIN THAT KNOX. WAS SEEN AT [facility] EARLY AM AND DR MOORE OFFICE TODAY. Sepsis Screen: No Definite Risk History of Present Illness Date Seen by Provider: Sep 18, 2018 Time Seen by Provider: 19:45 Initial Comments 23 year old female presents with right upper quadrant pain and diarrhea. She also had nausea and vomited yesterday. She presented to this ED at 0245 this morning and left AMA, she was then seen and treated at [facility], and then seen by Dr. Kearns this afternoon. She is having issues with [facility] pharmacy filling her prescriptions. She reports eating breakfast this morning, but no solid intake since then and minimal liquids. Timing/Duration: 24 Hours Allergies and Home Medications Allergies Coded Allergies: No Known Drug Allergies (Unverified , 04/29/11) Home Medications Ibuprofen 600 Mg Tablet, 600 MG PO Q6H Prescribed by: CAROLYN SONG on 01/20/17 1245 Iron,Carbonyl/Vit C/Vit B12/FA 1 Each Tablet, 1 EACH PO DAILY, (Reported) Levothyroxine Sodium 25 Mcg Tablet, 25 MCG PO DAILY, (Reported) Vit W-Ca,Fe,FA(<1 mg) 1 Each Tablet, 1 TAB PO DAILY, (Reported) [Hydrocodone Bit/Acetaminophen] Y TAB, 1-2 TAB PO Q4H PRN for PAIN-MODERATE Prescribed by: CAROLYN SONG on 01/20/17 1245 Patient Home Medication List Home Medication List Reviewed: Yes Review of Systems Review of Systems Constitutional: no symptoms reported, see HPI Gastrointestinal: See HPI, Abdominal Pain, Nausea Musculoskeletal: see HPI, back pain All Other Systems Reviewed Negative Unless Noted: Yes Past Ncwnjlk-Diojaj-Jxltzb Hx Past Med/Social Hx: Reviewed Nursing Past Med/Soc Hx Patient Social History Alcohol Use: Denies Use Recreational Drug Use: No Smoking Status: Never a Smoker Recent Foreign Travel: No Contact w/Someone Who Travel: No Recent Infectious Disease Expo: No Recent Hopitalizations: No Physical Abuse: No Sexual Abuse: No Mistreated: No Fear: No Immunizations Up To Date Tetanus Booster (TDap): Unknown Seasonal Allergies Seasonal Allergies: No Past Medical History Surgeries: Yes Bladder Surgery Respiratory: No Cardiac: No Neurological: No Reproductive Disorders: No Female Reproductive Disorders: Denies Genitourinary: No Gastrointestinal: No Musculoskeletal: No Endocrine: No HEENT: No Cancer: No Psychosocial: Yes (MOOD DISORDER--WAS ON ZOLOFT--DC'D IT 1 MONTH AGO) Depression Integumentary: No Blood Disorders: No Adverse Reaction/Blood Tranf: No Family Medical History Hypertension 19 FATHER Physical Exam Vital Signs Vital Signs - First Documented 09/18/18 19:47 Temp 97.9 Pulse 84 Resp 17 B/P (MAP) 165/121 (136) Pulse Ox 98 O2 Delivery Room Air Capillary Refill : Less Than 3 Seconds Height/Weight/BMI Height: 5'1.00" Weight: 158lbs. 0.0oz. 71.172676sq; 33.1 BMI Method:Stated General Appearance: WD/WN, mild distress (secondary to pain) HEENT: PERRL/EOMI, normal ENT inspection, TMs normal, pharynx normal Neck: non-tender, full range of motion, supple, normal inspection Respiratory: chest non-tender, lungs clear, normal breath sounds Cardiovascular: normal peripheral pulses, regular rate, rhythm Gastrointestinal: normal bowel sounds, soft; No distended, No guarding, No rebound; tenderness (epigastric and right upper quadrant), other (negative Palacios sign) Back: normal inspection, no CVA tenderness, no vertebral tenderness Neurologic/Psychiatric: no motor/sensory deficits, alert, normal mood/affect, oriented x 3 Skin: normal color, warm/dry Lymphatic: no adenopathy Progress/Results/Core Measures Results/Orders Lab Results Laboratory Tests Test 09/18/18 20:06 09/18/18 20:20 Range/Units Urine Color YELLOW Urine Clarity CLEAR Urine pH 6 5-9 Urine Specific [place] 1.020 1.016-1.022 Urine Protein NEGATIVE NEGATIVE Urine Glucose (UA) NEGATIVE NEGATIVE Urine Ketones 3+ H NEGATIVE Urine Nitrite NEGATIVE NEGATIVE Urine Bilirubin NEGATIVE NEGATIVE Urine Urobilinogen NORMAL NORMAL MG/DL Urine Leukocyte Esterase NEGATIVE NEGATIVE Urine RBC (Auto) NEGATIVE NEGATIVE Urine RBC NONE /HPF Urine WBC 0-2 /HPF Urine Squamous Epithelial Cells 2-5 /HPF Urine Crystals NONE /LPF Urine Bacteria TRACE /HPF Urine Casts NONE /LPF Urine Mucus SMALL H /LPF Urine Culture Indicated NO White Blood Count 9.2 4.3-11.0 10^3/uL Red Blood Count 4.65 4.35-5.85 10^6/uL Hemoglobin 13.4 11.5-16.0 G/DL Hematocrit 40 35-52 % Mean Corpuscular Volume 86 80-99 FL Mean Corpuscular Hemoglobin 29 25-34 PG Mean Corpuscular Hemoglobin Concent 34 32-36 G/DL Red Cell Distribution Width 13.1 10.0-14.5 % Platelet Count 300 130-400 10^3/uL Mean Platelet Volume 10.8 H 7.4-10.4 FL Neutrophils (%) (Auto) 68 42-75 % Lymphocytes (%) (Auto) 22 12-44 % Monocytes (%) (Auto) 9 0-12 % Eosinophils (%) (Auto) 1 0-10 % Basophils (%) (Auto) 0 0-10 % Neutrophils # (Auto) 6.3 1.8-7.8 X 10^3 Lymphocytes # (Auto) 2.0 1.0-4.0 X 10^3 Monocytes # (Auto) 0.8 0.0-1.0 X 10^3 Eosinophils # (Auto) 0.1 0.0-0.3 10^3/uL Basophils # (Auto) 0.0 0.0-0.1 10^3/uL Sodium Level 139 135-145 MMOL/L Potassium Level 3.5 L 3.6-5.0 MMOL/L Chloride Level 105 98-107 MMOL/L Carbon Dioxide Level 18 L 21-32 MMOL/L Anion Gap 16 H 5-14 MMOL/L Blood Urea Nitrogen 11 7-18 MG/DL Creatinine 0.87 0.60-1.30 MG/DL Estimat Glomerular Filtration Rate > 60 BUN/Creatinine Ratio 13 Glucose Level 93 70-105 MG/DL Calcium Level 10.3 H 8.5-10.1 MG/DL Corrected Calcium 8.5-10.1 MG/DL Total Bilirubin 0.3 0.1-1.0 MG/DL Aspartate Amino Transf (AST/SGOT) 24 5-34 U/L Alanine Aminotransferase (ALT/SGPT) 22 0-55 U/L Alkaline Phosphatase 113 40-136 U/L Total Protein 8.8 H 6.4-8.2 GM/DL Albumin 5.1 H 3.2-4.5 GM/DL Amylase Level 40 25-125 U/L Lipase 39 8-78 U/L My Orders Orders - JR,PABLITO YOHANA Ua Culture If Indicated (09/18/18 18:56) Urine Bedside (09/18/18 18:56) Amylase (09/18/18 20:05) Cbc With Automated Diff (09/18/18 20:05) Comprehensive Metabolic Panel (09/18/18 20:05) Lipase (09/18/18 20:05) Ed Iv/Invasive Line Start (09/18/18 20:08) Ns Iv 1000 Ml (Sodium Chloride 0.9%) (09/18/18 20:08) Ketorolac Injection (Toradol Injection) (09/18/18 20:45) Ondansetron Injection (Zofran Injectio (09/18/18 20:45) Ed Iv/Invasive Line Start (09/18/18 21:10) Ns Iv 1000 Ml (Sodium Chloride 0.9%) (09/18/18 21:10) Fentanyl Injection (Sublimaze Injection (09/18/18 21:17) Fentanyl Injection (Sublimaze Injection (09/18/18 21:30) Rx-Ondansetron Po (Rx-Zofran Po) (09/18/18 21:44) Rx-Hydrocodone/Apap 5-325 Mg (Rx-Vicodin (09/18/18 21:45) Medications Given in ED Current Medications Medications Dose Ordered Sig/Franc Route Start Time Stop Time Status Last Admin Dose Admin Acetaminophen/ Hydrocodone Bitart 1 ea Q6H PRN PO 09/18/18 21:45 09/18/18 22:04 DC 09/18/18 21:56 1 EA Fentanyl Citrate 25 mcg Q1H PRN IVP 09/18/18 21:30 09/18/18 22:04 DC 09/18/18 21:31 25 MCG Ketorolac Tromethamine 30 mg ONCE ONCE IVP 09/18/18 20:45 09/18/18 20:46 DC 09/18/18 21:00 30 MG Ondansetron HCl 4 mg ONCE ONCE IVP 09/18/18 20:45 09/18/18 20:46 DC 09/18/18 21:00 4 MG Vital Signs/I&O 09/18/18 09/18/18 09/18/18 09/18/18 19:47 21:00 21:18 22:02 Temp 97.9 97.9 97.9 97.9 Pulse 84 84 Resp 17 17 B/P (MAP) 165/121 (136) 165/121 (136) Pulse Ox 98 98 O2 Delivery Room Air Blood Pressure Mean: 136 Progress Progress Note : Time: 19:45 Progress Note Patient seen and evaluated, will obtain labs, normal saline 1 L IV, Toradol 30 mg IV and Zofran 4 mg IV. 2029 labs essentially normal , patient reports improvement of her abdominal pain and nausea after the Toradol and Zofran, however her back pain is continuing. Give fentanyl 25 g IV. 2044 we'll give second liter of normal saline per IV. 2144 patient reports improvement in her symptoms. Encouraged she follow-up with Dr. Kearns tomorrow, discharge instructions and return precautions reviewed with her. Departure Impression Primary Impression: Abdominal pain Qualified Codes: R10.13 - Epigastric pain Additional Impression: Nausea alone Disposition: 01 HOME, SELF-CARE Condition: Improved Departure-Patient Inst. Decision time for Depature: 21:45 Referrals: ABBIE KEARNS MD (PCP) Primary Care Physician TYLER COFFEY APRN (Family) Primary Care Physician Patient Instructions: Acute Abdomen (Belly Pain), Adult (DC) Add. Discharge Instructions: Clear liquid diet for nausea. Take Zofran every 6-8 hours for nausea. Take Ibuprofen 600 mg every 8 hours for pain. For pain not controlled with Ibuprofen, take Hydrocodone/APAP every 6 hours. Follow up with Dr. Kearns's office tomorrow for Prescriptions at [facility] and Ultrasound Scheduling. Return to emergency department for worsening pain, fever greater than 101 not relieved by Tylenol or ibuprofen, new problems or concerns. All discharge instructions reviewed with patient and/or family. Voiced und erstanding. Copy Copies To 1: ABBIE KEARNS MD, AMY ARNP Sep 18, 2018 21:51
[2018-09-18 22:02] VITALS: BP 165/121
== END 2018-09-18 22:04 | disposition home or self-care (01) ==
LOC: EDUNIT# 18:53 → ER 18:54
DX: R10.13 Epigastric pain (principal); R10.11 Right upper quadrant pain; R11.0 Nausea; F32.9 Major depressive disorder, single episode, unspecified; Z82.49 Family history of ischemic heart disease and other diseases of the circulatory system
CPT/HCPCS: 36415; 80053; 81000; 82150; 83690; 84703; 85025

== ENCOUNTER → 2018-09-20 | Outpatient (CLI) | payer BC ==
[~2018-09-20] VITALS: Ht 154.9 cm; Wt 71.7 kg
[~2018-09-20] MED LIST changes: +KETOROLAC 30 MG/ML VIAL ONE; +KETOROLAC 60 MG/2 ML VIAL IM ONE; +NS IV 1000 ML 1,000 ML IV ONE; +NS IV 1000 ML 1,000 ML ONE; +ONDANSETRON 4 MG/2 ML (SDV) Z0FRAN IV PRN; +ONDANSETRON 4 MG/2 ML (SDV) Z0FRAN ONE; +PROMETHAZINE INJ 25 MG/ML (PHENERGAN) AMP IV PRN; +PROMETHAZINE INJ 25 MG/ML (PHENERGAN) AMP ONE; +fentaNYL INJECTION 100 MCG/2 ML AMP IV PRN; +fentaNYL INJECTION 100 MCG/2 ML AMP ONE
[2018-09-20 09:16] LABS: HEMOGLOBIN 12.8 G/DL (11.5-16.0); MEAN PLATELET VOLUME 10.7 FL (7.4-10.4); RED CELL DISTRIBUTION WIDTH 12.7 % (10.0-14.5)
[2018-09-20 09:30] VITALS: BP 161/111
[2018-09-20 09:51] LABS: ALANINE AMINOTRANSFERASE 16 U/L (0-55); ALBUMIN 4.7 GM/DL (3.2-4.5); ALKALINE PHOSPHATASE 99 U/L (40-136); BILIRUBIN,TOTAL 0.2 MG/DL (0.1-1.0); BUN/CREATININE RATIO 15; CARBON DIOXIDE 19 MMOL/L (21-32); CHLORIDE 107 MMOL/L (98-107); CREATININE SERUM 0.75 MG/DL (0.60-1.30); GFR ESTIMATED > 60; GLUCOSE 100 MG/DL (70-105); POTASSIUM 3.8 MMOL/L (3.6-5.0); SODIUM 140 MMOL/L (135-145); TOTAL PROTEIN 8.1 GM/DL (6.4-8.2)
== END ==
LOC: SDC 08:48
PROVIDERS: ATTEND Nurse Practitioner Family
DX: R10.11 Right upper quadrant pain (principal); R11.0 Nausea
CPT/HCPCS: 36415; 80053; 85027; 96360; 96372; 96374; 96375

== ENCOUNTER → 2018-09-20 | Outpatient (CLI) | payer BC ==
[~2018-09-20] MED LIST changes: -KETOROLAC 30 MG/ML VIAL ONE; -KETOROLAC 60 MG/2 ML VIAL IM ONE; -NS IV 1000 ML 1,000 ML IV ONE; -NS IV 1000 ML 1,000 ML ONE; -ONDANSETRON 4 MG/2 ML (SDV) Z0FRAN IV PRN; -ONDANSETRON 4 MG/2 ML (SDV) Z0FRAN ONE; -PROMETHAZINE INJ 25 MG/ML (PHENERGAN) AMP IV PRN; -PROMETHAZINE INJ 25 MG/ML (PHENERGAN) AMP ONE; -fentaNYL INJECTION 100 MCG/2 ML AMP IV PRN; -fentaNYL INJECTION 100 MCG/2 ML AMP ONE
--- NOTE | 2018-09-20 09:14 | Diagnostic Imaging Report ---
PROCEDURE: US Gallbladder. TECHNIQUE: Multiple real-time grayscale images were obtained over the right upper quadrant in various projections. INDICATION: Right upper quadrant pain with vomiting. FINDINGS: Liver parenchyma appears normal. The liver is not enlarged measuring 15 cm. The portal vein is patent with normal flow. Gallbladder appears normal without evidence of gallstones or wall thickening. Common bile duct measures 4 mm. Pancreas appears normal. Right kidney is normal measuring 9.5 x 5 cm. There is no ascites. IMPRESSION: Normal right upper quadrant ultrasound. Dictated by: Dictated on workstation # [id number]
== END ==
LOC: RAD 06:42
PROVIDERS: ATTEND Nurse Practitioner Family
DX: R10.11 Right upper quadrant pain (principal); R11.10 Vomiting, unspecified
CPT/HCPCS: 76705